=== PATIENT | female | born 1935 | race Caucasian/White ===

== ENCOUNTER 2017-04-08 08:27 | Outpatient (CLI) | payer MEDICARE, OTHER ==
[2017-04-08 11:54] LABS: BASOPHILS % (AUTO) 0.8 %; EOSINOPHILS % (AUTO) 0.5 %; HCT - HEMATOCRIT 29.5 % (37.0-47.0); HGB - HEMOGLOBIN 10.4 g/dL (12.0-16.0); LYMPHOCYTES # (AUTO) 1.4 10^3/uL (1.5-3.5); MEAN CORPUSCULAR HEMOGLOBIN 34.5 pg (27.0-31.0); MEAN CORPUSCULAR HGB CONC 35.2 g/dL (32.0-36.0); MEAN CORPUSCULAR VOLUME 97.9 fL (81.0-99.0); MEAN PLATELET VOLUME 7.6 fL (7.9-10.8); MONOCYTES # (AUTO) 0.6 10^3/uL (0.0-1.0); MONOCYTES % (AUTO) 18.9 %; NEUTROPHILS # (AUTO) 1.3 10^3/uL (1.5-6.6); NEUTROPHILS % (AUTO) 38.8 %; NUCLEATED RED BLOOD CELLS AUTO 0.1 /100WBC; RED BLOOD COUNT 3.01 10^6/uL (4.20-5.40); RED CELL DISTRIBUTION WIDTH 16.3 % (12.0-15.0); UNCORRECTED WHITE BLOOD COUNT 3.4 x10^3/uL; WHITE BLOOD COUNT 3.4 x10^3/uL (4.8-10.8)
[2017-04-08 12:13] LABS: ALBUMIN/GLOBULIN RATIO 0.9 (1.0-2.2); BUN - BLOOD UREA NITROGEN 13 mg/dL (6-20); CALCIUM 8.7 mg/dL (8.5-10.3); CARBON DIOXIDE - CO2 27 mmol/L (21-32); CHLORIDE 101 mmol/L (101-111); CHOL/HDL RATIO 3.4 (<4.4); CHOLESTEROL 124 mg/dL; CREATININE 0.7 mg/dL (0.4-1.0); GFR - MDRD 81 (>89); GLUCOSE 94 mg/dL (70-100); HDL CHOLESTEROL 37 mg/dL; LDL/HDL RATIO 1.8 (<4.4); POTASSIUM 3.9 mmol/L (3.5-5.0); SODIUM 133 mmol/L (135-145); TOTAL PROTEIN 7.6 g/dL (6.7-8.2); TRIGLYCERIDES 105 mg/dL; VLDL CHOLESTEROL 21 mg/dL
[2017-04-08 12:18] LABS: NP AUTO DIFFERENTIAL? NO; NP MAN DIFFERENTIAL? YES
== END 2017-04-08 08:28 | disposition home or self-care (01) ==
LOC: LAB.F 08:27
PROVIDERS: ATTEND Internal Medicine
DX: I10 Essential (primary) hypertension (principal); E78.2 Mixed hyperlipidemia; Z79.899 Other long term (current) drug therapy
CPT/HCPCS: 36415; 80053; 80061; 85025

== ENCOUNTER 2017-04-15 09:39 | Outpatient (CLI) | payer MEDICARE, OTHER ==
[2017-04-15 17:58] LABS: IMMATURE RETIC FRACTION 0.53; RED BLOOD COUNT 2.91 10^6/uL (4.20-5.40)
[2017-04-15 18:40] LABS: FERRITIN 330.8 ng/mL (11.0-306.8)
== END 2017-04-15 09:40 | disposition home or self-care (01) ==
LOC: LAB.F 09:39
PROVIDERS: ATTEND Internal Medicine
DX: D64.9 Anemia, unspecified (principal)
CPT/HCPCS: 36415; 82607; 82728; 83010; 85044; 86880

== ENCOUNTER 2017-11-07 09:47 | Outpatient (CLI) | payer MEDICARE, OTHER ==
--- NOTE | 2017-11-09 09:53 | MRI Report ---
EXAM: MR ABDOMEN WITHOUT CONTRAST (MR CHOLANGIOPANCREATOGRAPHY) EXAM DATE: 11/07/2017 09:55 AM. CLINICAL HISTORY: COMMON BILE DUCT OBSTRUCTION, CALCULI. COMPARISON: Abdominal ultrasound 10/13/2017. TECHNIQUE: Multiplanar breath-hold T1 and T2 sequences obtained through the abdomen on an MR scanner. Dedicated 2D and 3D MRCP sequences obtained through the biliary and pancreatic ducts. No intravenous contrast given. FINDINGS: Lung Bases: Trace left pleural effusion. Moderate esophageal hiatal hernia. Liver: The liver has normal size, morphology and signal. No evidence of mass. The intrahepatic bile d ucts appear normal. CBD: There is a moderately dilated common duct measuring up to 11 mm proximally and approximately 8mm at the head of the pancreas. There is a filling defect at the distal common bile duct measuring appr oximately 5 mm, suspicious for choledocholithiasis. Gallbladder: Partially distended gallbladder with multiple gallstones. No evidence of gallbladder wal l thickening or pericholecystic fluid. Pancreas: Pancreas appears moderately atrophic. There is an irregular cystic-appearing structure in t he head of the pancreas measuring up to 11 x 8 mm (401/15). There is a small cystic structure abuttin g the neck of the pancreas superiorly measuring approximate 7x6 millimeter (41/22, 601/11). Pancreati c duct is in the normal range for size. Spleen: Nonspecific borderline mild splenomegaly. No focal lesion. Kidneys and Adrenals: The kidneys appear normal with no convincing solid mass or hydronephrosis. Ther e is a discrete 7 mm left midpole renal cortical T2 hyperintensity suggestive of cyst. Adrenal glands are unremarkable. Bowel: The small bowel and colon appear normal with no inflammation or obstruction. Retroperitoneum: The retroperitoneal structures appear normal with no mass or lymphadenopathy. Severe T12 compression deformity, appears chronic. Few scattered discrete T2 hyperintensities in the spine, may represent hemangiomata. IMPRESSION: 1. Mildly enlarged common duct with distal filling defect suggesting choledocholithiasis. 2. Cholelithiasis without secondary signs of inflammation to suggest acute cholecystitis. 3. Cystic-appearing pancreatic lesions, as described above. Differential considerations include cysts /pseudocysts, and cystic pancreatic neoplasms both benign and malignant including IPMN. Suggest 6-12 month followup imaging to evaluate stability. 4. Moderate esophageal hiatal hernia. 5. Trace left pleural effusion. 6. Other findings as noted above. [facility] Referring Provider Line: [phone] SITE ID: [id number]
== END 2017-11-07 09:48 | disposition home or self-care (01) ==
LOC: DI 09:47
PROVIDERS: ATTEND Internal Medicine Gastroenterology
DX: K83.8 Other specified diseases of biliary tract (principal); K80.20 Calculus of gallbladder without cholecystitis without obstruction; K86.9 Disease of pancreas, unspecified; K44.9 Diaphragmatic hernia without obstruction or gangrene; J90 Pleural effusion, not elsewhere classified
CPT/HCPCS: 74181

== ENCOUNTER 2017-11-10 10:03 | Outpatient (CLI) | payer MEDICARE, OTHER ==
[2017-11-10 17:39] LABS: INR 0.9 (0.8-1.2); PT - PROTHROMBIN TIME 10.4 secs (9.9-12.6)
== END 2017-11-10 10:04 | disposition home or self-care (01) ==
LOC: LAB.F 10:03
PROVIDERS: ATTEND Internal Medicine Gastroenterology
DX: K86.2 Cyst of pancreas (principal); K80.51 Calculus of bile duct without cholangitis or cholecystitis with obstruction
CPT/HCPCS: 36415; 85610; 86301

== ENCOUNTER 2017-12-15 07:49 | Day surgery (SDC) | payer MEDICARE, OTHER ==
[2017-12-15] MEDS ORDERED: ceFAZolin 2 GM/50 ML 2 GM/50 ML BAG IV ONE (07:56)
[2017-12-15] MEDS ORDERED: LACTATED RINGERS 1,000 ML IV ONE ×2 (08:25→11:12)
[2017-12-15] MEDS ORDERED: MIDAZOLAM 2 MG/2 ML VIAL IVP ONE (08:30)
[2017-12-15] MEDS ORDERED: PROPOFOL 200 MG/20 ML VIAL IVP ONE (08:30)
[2017-12-15] MEDS ORDERED: ACETAMINOPHEN 1,000 MG/100 ML 100 ML IV ONE (08:30)
[2017-12-15] MEDS ORDERED: SUCCINYLCHOLINE 200 MG/10 ML VIAL IVP ONE (08:30)
[2017-12-15] MEDS ORDERED: diphenhydrAMINE INJ 50 MG/ML VIAL IVP ONE (08:30)
[2017-12-15] MEDS ORDERED: NEOSTIGMINE 1 MG/1 ML 10 ML MDV IVP ONE (08:30)
[2017-12-15] MEDS ORDERED: ONDANSETRON 4 MG/2 ML VIAL IVP ONE (08:30)
[2017-12-15] MEDS ORDERED: fentaNYL 100 MCG/2 ML VIAL IVP ONE (08:30)
[2017-12-15] MEDS ORDERED: GLYCOPYRROLATE 1 MG/5 ML VIAL IVP ONE (08:30)
[2017-12-15] MEDS ORDERED: ROCURONIUM 50 MG/5 ML VIAL IVP ONE (08:30)
[2017-12-15] MEDS ORDERED: LIDOCAINE-MPF 2% 5 ML VIAL IM ONE (08:30)
[2017-12-15] MEDS ORDERED: BUPIVACAINE 0.25% PF 30 ML VIAL SUBQ ONE ×2 (10:00)
[2017-12-15] MEDS ORDERED: IOTHALAMATE MEGLUMINE 50 ML VIAL IVP ONE ×2 (10:27)
--- NOTE | 2017-12-15 11:45 | OPERATIVE REPORT ---
Operative Report - General Procedure Date: 12/15/17 Planned Procedure: Laparoscopic cholecystectomy Pre-Op Diagnosis: Symptomatic cholelithiasis and choledocholithiasis Procedure Performed: Laparoscopic cholecystectomy with intra-operative cholangiogram Post Op Diagnosis: Same - Procedure Note Primary Surgeon: Slava Conn MD Anesthesia Provider: Wei Smallwood CRNA Anesthesia Technique: General ET tube, Local (60 mL 1/4% marcaine) IV Fluids (mL): 1,000 Estimated Blood Loss (mL): 33 Complications: None. - Other Other Information/Narrative: OPERATIVE DESCRIPTION/REPORT: After verbal and written informed consent was obtained detailing the risks of infection, bleeding requiring transfusion with its risks, common bile duct injury, and , and after I met with the patient confirming the surgery and the site of the surgery and after initialing the site of the surgery with a surgical marker, the patient was brought to the operative suite and placed supine on the operating table. Great care was taken to avoid pressure points to prevent pressure necrosis or nerve injury. Monitoring devices were applied along with TEDs and pneumatic compressive stockings (to prevent DVT). The patient received preoperative antibiotics for surgical prophylaxis. Wei Smallwood sedated and anesthetized the patient for the entire procedure. The patient was prepped and draped in the usual sterile manner. A "time in" then confirmed that the patient was identified with 3 identifiers (name, date and medical record number), the history and physical was in the chart, the signed consent confirming the procedure was in the chart, the patient was in the correct position, the aforementioned prophylactic measures were in place or given, we had the correct personnel and equipment to complete the procedure and that anesthesia, surgery and nursing were given an opportunity to express any concerns. With the agreement of everyone in the room, we proceeded with the operation. A 2 cm supraumbilical midline incision was made. The fascia was then cleared of subcutaneous tissue using a tonsil clamp. A 1.5 cm incision was then made in the fascia gaining entry into the abdominal cavity without incident. A 12 mm blunt tipped balloon tipped Katherine cannula was placed in the fascial opening and the ballon inflated in order to occlude the fascial opening. The pneumoperitoneum was then established using carbon dioxide insufflation to a steady state pressure of 12 mmHg. The remaining trocars were then placed into the abdomen under direct vision of the 30 degree laparoscope taking care to make the incisions along Langers lines , spreading the subcutaneous tissues with a tonsil clamp, and confirming the entry site by depressing the abdominal wall prior to insertion of the trocar. A total of three other trocars were placed. The first was a 5 mm trocar in the upper midline position. The second was a 5 mm trocar placed in the anterior axillary line approximately 3 cm above the anterior superior iliac spine. The third was a 5 mm trocar placed to bisect the distance between the second and upper midline trocar. All of the trocars were placed without difficulty. The patient was then placed in reverse Trendelenburg position and was rotated slightly to their left. Dense adhesions were nated between the hapatic flexure of the colon and the anterior abdominal wall and these were taken down sharply using scissors. The gallbladder was then grasped through the second and third trocars and retracted cephalad toward the right shoulder. Dense adhesions between the gallbladder and the duodenum were taken down using scissors and Bovie electrocautery. A laparoscopic dissector was then placed through the upper midline cannula fitted with a phy therapist, and the structures within the triangle of Calot were meticulously dissected free. A Fan clamp was then inserted through the medial right subcostal port and the distal gallbladder clamped and the needle inserted just above the origin of the cystic duct. There was return of bile and easy flush of saline. Half strength dye was then injected and a cholangiogram was obtained utilizing fluoroscopy. The first cholangiogram showed the needle was in too far and this was slightly withdrawn in order to get the best picture. After the cholangiogram clearly showed the ductal anatomy, no filling defects and no obstruction to flow, the cholangiocathter and the Fan clamp were removed and the cystic duct was doubly clipped proximally and distally. The duct was divided between the clips. The clips were carefully placed to avoid occluding the juncture with the common bile duct. The cystic artery was found medially and slightly posterior to the cystic duct. It was carefully dissected free from its surrounding tissues. A laparoscopic clip assembler dc field yoke was introduced through the upper midline cannula and used to doubly ligate the cystic artery, proximally and distally. The artery was divided between the clips. After the cystic duct and artery were transected, the gallbladder was dissected from the liver bed using Bovie electrocautery. Prior to complete dissection of the gallbladder from the liver the peritoneal cavity was copiously irrigated with saline and the operative field was examined for persistent blood or bile leaks of which there were none. After complete detachment of the gallbladder from the liver, the video laparoscope was placed through the upper midline 5 mm cannula. The gallbladder was placed in an endopouch that had been inserted in the umbilical port and the pursestring suture pulled tight. All 5 mm port sites were injected with 0.25% marcaine under direct vision at the peritoneal level, fascial level and skin level. The Katherine cannula was removed and the endopouch containing the gallbladder was removed from the abdomen. Following gallbladder removal, the remaining carbon dioxide was expelled from the abdomen. The fascia at the umbilicus was reapproximated using 2 figure-of- eight 0 Vicryl sutures. The skin at each port site was approximated using a subcuticular 4-0 Monocryl. The surgical count of instruments, needles and sponges was reported as correct twice. Mastisol, Steri-Strips and sterile surgical dressings were applied. The patient was then awakened from anesthesia , extubated, and having tolerated the procedure well, was transported to the recovery room. No complications were encountered. A "time out" confirmed the operation performed, the fluids given, the estimated blood loss and anesthesia, surgery and nursing were given an opportunity to express any concerns.
[2017-12-15] MEDS: LABETALOL 20 MG/4 ML SYRINGE IVP ONE ×2 (11:52→11:59)
[2017-12-15] MEDS ORDERED: METOPROLOL 5 MG/5 ML VIAL IVP ONE (11:56)
[2017-12-15 12:44] VITALS: BP 145/89
[2017-12-15] MEDS ORDERED: HYDROcod/ACETAM 5/325 MG TABLET ONE (13:00)
--- NOTE | 2017-12-15 14:06 | XRAY Report ---
INTRAOPERATIVE CHOLANGIOGRAM: 12/15/2017 CLINICAL INDICATION: Cholecystectomy. FINDINGS: Intraoperative cholangiogram demonstrates opacification of the common bile duct and proximal intrahepatic ducts. No intraluminal filling defect is seen to suggest choledocholithiasis. Contrast spills into the duodenum. IMPRESSION: NO EVIDENCE OF CHOLEDOCHOLITHIASIS. FLUOROSCOPY TIME: 13 seconds; 3 spot images obtained. TD: 12/15/2017 14:05
== END 2017-12-15 07:50 | disposition home or self-care (01) ==
LOC: SDS 07:49
PROVIDERS: ATTEND Surgery
PROC: 0FT44ZZ Resection of Gallbladder, Percutaneous Endoscopic Approach (ICD-10-PCS; principal; 2017-12-15 09:00)
DX: K80.10 Calculus of gallbladder with chronic cholecystitis without obstruction (principal); I10 Essential (primary) hypertension; E78.5 Hyperlipidemia, unspecified; E11.9 Type 2 diabetes mellitus without complications
CPT/HCPCS: 47563; 74300; A9270; J0131; J0690; J7120; Q9961

== ENCOUNTER 2018-04-27 08:51 | Outpatient (CLI) | payer MEDICARE, OTHER ==
[2018-04-27 11:11] LABS: ALBUMIN 3.4 g/dL (3.2-5.5); ALBUMIN/GLOBULIN RATIO 0.9 (1.0-2.2); ALKALINE PHOSPHATASE 82 IU/L (42-121); ALT ALANINE AMINOTRANSFERASE 15 IU/L (10-60); AST ASPARTATE AMINOTRANSFERASE 31 IU/L (10-42); BILIRUBIN,TOTAL 1.8 mg/dL (0.2-1.0); BUN - BLOOD UREA NITROGEN 17 mg/dL (6-20); CALCIUM 8.6 mg/dL (8.5-10.3); CARBON DIOXIDE - CO2 26 mmol/L (21-32); CHLORIDE 100 mmol/L (101-111); CHOL/HDL RATIO 2.8 (<4.4); CHOLESTEROL 128 mg/dL; CREATININE 0.7 mg/dL (0.4-1.0); GFR - MDRD 81 (>89); GLUCOSE 98 mg/dL (70-100); HDL CHOLESTEROL 45 mg/dL; LDL CHOLESTEROL,CALCULATED 60 mg/dL; LDL/HDL RATIO 1.3 (<4.4); SODIUM 131 mmol/L (135-145); TOTAL PROTEIN 7.4 g/dL (6.7-8.2); VLDL CHOLESTEROL 23 mg/dL
[2018-04-27 11:15] LABS: BASOPHILS % (AUTO) 0.3 %; EOSINOPHILS % (AUTO) 0.4 %; HGB - HEMOGLOBIN 10.7 g/dL (12.0-16.0); LYMPHOCYTES # (AUTO) 1.7 10^3/uL (1.5-3.5); LYMPHOCYTES % (AUTO) 44.1 %; MEAN CORPUSCULAR HEMOGLOBIN 33.2 pg (27.0-31.0); MEAN CORPUSCULAR HGB CONC 33.7 g/dL (32.0-36.0); MEAN CORPUSCULAR VOLUME 98.6 fL (81.0-99.0); MEAN PLATELET VOLUME 7.5 fL (7.9-10.8); MONOCYTES # (AUTO) 0.6 10^3/uL (0.0-1.0); MONOCYTES % (AUTO) 16.4 %; NEUTROPHILS # (AUTO) 1.5 10^3/uL (1.5-6.6); NEUTROPHILS % (AUTO) 38.8 %; PLT - PLATELET COUNT 162 10^3/uL (130-450); RED BLOOD COUNT 3.23 10^6/uL (4.20-5.40); RED CELL DISTRIBUTION WIDTH 17.5 % (12.0-15.0); WHITE BLOOD COUNT 3.8 x10^3/uL (4.8-10.8)
[2018-04-27 11:17] LABS: HB2 TOTAL 11.7 g/dL; HEMOGLOBIN A1C 0.39 g/dL; HEMOGLOBIN A1C % 5.2 % (4.6-6.2)
[2018-04-27 11:52] LABS: RBC MORPHOLOGY (MULTIPLE) 2+ ANISOCYTOSIS (NORMAL)
== END 2018-04-27 08:52 | disposition home or self-care (01) ==
LOC: LAB.F 08:51
PROVIDERS: ATTEND Internal Medicine
DX: D58.9 Hereditary hemolytic anemia, unspecified (principal); E88.81 Metabolic syndrome and other insulin resistance; I10 Essential (primary) hypertension; E78.5 Hyperlipidemia, unspecified; Z79.899 Other long term (current) drug therapy
CPT/HCPCS: 36415; 80053; 80061; 83036; 83721; 85025

== ENCOUNTER 2018-05-14 10:01 | Outpatient (CLI) | payer MEDICARE, OTHER ==
--- NOTE | 2018-05-14 17:02 | DEXA Report ---
Procedure Date: 05/14/2018 Accession Number: [id number] / [id number] Procedure: DEX - Dexa Spine and/or Hip CPT Code: FULL RESULT: EXAM: Dexa Spine and/or Hip DATE: 05/14/2018 10:57 AM CLINICAL HISTORY: SCREENING MAMMO TECHNIQUE: Dual energy x-ray absorptiometry (DXA) was performed on a [employer] System. Regions measured are the AP Spine, femoral neck, and if needed forearm. COMPARISON: None. In accordance with the International Society for Clinical Densitometry (ISCD) guidelines, data from previous exams may be reanalyzed using current recommendations and techniques. This is done to allow a more accurate basis for comparison with the current study. FINDINGS: The data for the lumbar spine is as follows: BMD (g/cm/cm) T-SCORE Z-SCORE REGION L1 1.009 -1.0 1.1 L2 1.205 0.0 2.1 L3 1.162 -0.3 1.8 L4 1.088 -0.9 1.2 TOTAL 1.118 -0.5 1.6 NOTE: All evaluable vertebrae are used for classification The data for the hip is as follows: BMD (g/cm/cm) T-SCORE Z-SCORE REGION Neck 0.726 -2.2 0.1 TOTAL 0.804 -1.6 0.6 NOTE: The femoral neck or total proximal femur, whichever is lowest, is used for classification. IMPRESSION: THE WHO CLASSIFICATION BASED ON THE INTERNATIONAL REFERENCE STANDARD IS OSTEOPENIA. THE FRACTURE RISK IS INCREASED. RECOMMENDATION: Patients with diagnosis of osteoporosis or osteopenia should have regular bone mineral density assessment. For those eligible for Medicare, routine testing is allowed once every 2 years. Testing frequency can be increased for patients who have rapidly progressing disease or for those who are receiving medical therapy to restore bone mass. COMMENT: World Health Organization (WHO) definitions for osteoporosis and osteopenia: NORMAL BMD: T-score at -1.0 or higher, fracture risk is low OSTEOPENIA BMD: T-score between -1.0 and -2.5, fracture risk is increased. OSTEOPOROSIS BMD: T-score at -2.5 or lower, fracture risk is high. National Osteoporosis Foundation recommends: 1. Obtain adequate dietary calcium (at least 1200 mg per day) and vitamin D (400-800 international units per day). 2. Participate, as appropriate, in regular weightbearing and muscle-strengthening exercise. 3. Avoid tobacco use and reduce alcohol and caffeine intake. 4. For more detailed information see the website at www.NOF.org.
== END 2018-05-14 10:02 | disposition home or self-care (01) ==
LOC: DI 10:01
PROVIDERS: ATTEND Internal Medicine
DX: M85.88 Other specified disorders of bone density and structure, other site (principal)
CPT/HCPCS: 77080

== ENCOUNTER 2018-05-14 10:04 | Outpatient (CLI) | payer MEDICARE, OTHER ==
--- NOTE | 2018-05-17 15:51 | Mammography Report ---
Procedure Date: 05/14/2018 Accession Number: [id number] / [id number] Procedure: CHUY - Screening Mammo Dig Bilat CPT Code: FULL RESULT: EXAM: Screening Mammo Dig Bilat DATE: 05/14/2018 10:30 AM CLINICAL HISTORY: 82-year-old female with 20 years of hormone replacement therapy and a family history of breast cancer in an aunt at age 50 presents for screening. She reports a 20 pound weight loss since her last mammogram. TECHNIQUE: Bilateral CC and MLO views were obtained. COMPARISON: 04/16/2016, 08/18/2013, 07/02/2011, 05/14/2010. FINDINGS: The breasts demonstrate heterogeneously dense fibroglandular parenchyma bilaterally. Typically benign bilateral coarse calcifications are seen. Typically benign bilateral vascular calcifications are seen. There are bilateral intramammary lymph nodes. These are typically benign. No suspicious masses, clustered microcalcifications, or regions of architectural distortion are identified. IMPRESSION: Benign findings RECOMMENDATION: Routine annual screening unless otherwise clinically indicated. BIRADS CATEGORY 2: Benign findings STANDARD QUALIFYING STATEMENTS: 1. This examination was reviewed with the aid of Computer-Aided Detection (CAD). 2. A negative or benign imaging report should not delay biopsy if clinically suspicious findings are present. Consider surgical consultation if warrented. More than 5% of cancers are not identified by imaging. 3. Dense breasts may obscure an underlying neoplasm.
== END 2018-05-14 10:05 | disposition home or self-care (01) ==
LOC: DI 10:04
PROVIDERS: ATTEND Internal Medicine
DX: Z12.31 Encounter for screening mammogram for malignant neoplasm of breast (principal); Z80.3 Family history of malignant neoplasm of breast
CPT/HCPCS: 77067

== ENCOUNTER 2018-05-25 08:00 | Outpatient (CLI) | payer MEDICARE, OTHER | END 2018-05-25 08:01 | disposition home or self-care (01) | LOC: LAB.R 08:00 | PROVIDERS: ATTEND Internal Medicine | DX: M81.0 Age-related osteoporosis without current pathological fracture (principal) | CPT/HCPCS: 82306 ==

== ENCOUNTER 2018-06-04 11:16 | Outpatient (CLI) | payer MEDICARE, OTHER ==
--- NOTE | 2018-06-04 12:33 | Ultrasound Report ---
Procedure Date: 06/04/2018 Accession Number: [id number] / [id number] Procedure: US - Head or Neck Soft Tissue CPT Code: FULL RESULT: EXAM: NECK ULTRASOUND EXAM DATE: 06/04/2018 11:29 AM. CLINICAL HISTORY: Cervical lymphadenopathy. COMPARISON: None. TECHNIQUE: Real-time sonographic imaging was performed by the emergency response officer utilizing color-flow. Multiple screening representative static images were saved for review. FINDINGS: Muñoz scale and limited color Doppler ultrasound of the left neck area of concern were obtained. Multiple hypoechoic oval structures some of which demonstrate internal vascularity by color Doppler are identified. Of note, these do not demonstrate the typical architecture expected of lymph nodes. The largest of these is heterogeneous and appears markedly hypoechoic measuring 1.1 x 0.9 x 0.9 cm and demonstrates vascularity from a presumed hilum as well as from a capsular source; appearance highly suspicious for lymphadenopathy with loss of architecture. IMPRESSION: Suspect pathologic lymph nodes, recommend tissue sampling. [facility]
== END 2018-06-04 11:17 | disposition home or self-care (01) ==
LOC: DI 11:16
PROVIDERS: ATTEND Internal Medicine
DX: R59.0 Localized enlarged lymph nodes (principal)
CPT/HCPCS: 76536

== ENCOUNTER 2018-07-15 12:50 | Outpatient (CLI) | payer MEDICARE, OTHER ==
--- NOTE | 2018-07-15 17:16 | Ultrasound Report ---
Reason: MASS BEHIND ANGLE OF L MANDIBLE Procedure Date: 07/15/2018 Accession Number: [id number] / [id number] Procedure: US - Fine Needle Aspiration CPT Code: FULL RESULT: PROCEDURE: ULTRASOUND GUIDED BIOPSY PREOPERATIVE DIAGNOSIS: Mass in the left neck at the angle of the mandible, possibly malignant. POSTOPERATIVE DIAGNOSIS: Same TECHNIQUE: Following written and oral informed consent including procedure risks and alternatives, the patient was brought to the ultrasound suite and positioned. Using local anesthesia, sterile technique, and direct ultrasound control, FNA needles were advanced to the mass and fine-needle aspiration was performed. The patient tolerated the procedure well and there were no immediate complications. CORN BREEDER: Dr Muse ESTIMATED BLOOD LOSS: Minimal FLUOROSCOPY TIME: None. COMPLICATIONS: None. CONDITION: Good. SPECIMEN: Fine-needle aspiration. IMPLANTS: None. FINDINGS: Real-time ultrasound performed with static images saved to the PACS demonstrating the needle directed into the mass. IMPRESSION: Uncomplicated ultrasound guided fine needle aspiration biopsy as described. Pathology results will be reported separately. [facility]
== END 2018-07-15 12:51 | disposition home or self-care (01) ==
LOC: DI 12:50
PROVIDERS: ATTEND Surgery
DX: R22.1 Localized swelling, mass and lump, neck (principal)
CPT/HCPCS: 10022

== ENCOUNTER 2018-07-26 13:12 | Outpatient (CLI) | payer MEDICARE, OTHER | END 2018-07-26 13:13 | disposition home or self-care (01) | LOC: LAB 13:12 | PROVIDERS: ATTEND Surgery | DX: Z53.9 Procedure and treatment not carried out, unspecified reason (principal) | CPT/HCPCS: 36415 ==

== ENCOUNTER 2019-02-15 10:38 | Emergency (ER) | payer MEDICARE, OTHER ==
[2019-02-15 11:12] LABS: HGB - HEMOGLOBIN 7.6 g/dL (12.0-16.0); LYMPHOCYTES # (AUTO) 1.4 10^3/uL (1.5-3.5); LYMPHOCYTES % (AUTO) 40.7 %; MEAN CORPUSCULAR HEMOGLOBIN 39.2 pg (27.0-31.0); MEAN CORPUSCULAR HGB CONC 33.4 g/dL (32.0-36.0); MEAN CORPUSCULAR VOLUME 117.3 fL (81.0-99.0); MEAN PLATELET VOLUME 7.9 fL (7.9-10.8); MONOCYTES # (AUTO) 0.5 10^3/uL (0.0-1.0); MONOCYTES % (AUTO) 13.5 %; NEUTROPHILS # (AUTO) 1.6 10^3/uL (1.5-6.6); NEUTROPHILS % (AUTO) 44.8 %; PLT - PLATELET COUNT 120 10^3/uL (130-450); RED BLOOD COUNT 1.95 10^6/uL (4.20-5.40); WHITE BLOOD COUNT 3.5 x10^3/uL (4.8-10.8)
[2019-02-15 11:22] LABS: ALBUMIN 3.3 g/dL (3.2-5.5); ALBUMIN/GLOBULIN RATIO 0.8 (1.0-2.2); BILIRUBIN,TOTAL 3.9 mg/dL (0.2-1.0); CALCIUM 8.4 mg/dL (8.5-10.3); CREATININE 0.6 mg/dL (0.4-1.0); TOTAL PROTEIN 7.5 g/dL (6.7-8.2)
[2019-02-15 11:56] LABS: PLATELET ESTIMATE, MANUAL DECREASED (<130,000) (NORMAL); PLATELET MORPHOLOGY NORMAL APPEARANCE (NORMAL)
--- NOTE | 2019-02-15 12:20 | XRAY Report ---
Reason: dyspnea Procedure Date: 02/15/2019 Accession Number: [id number] / [id number] Procedure: XR - Chest 2 View X-Ray CPT Code: 90188 FULL RESULT: EXAM: CHEST RADIOGRAPHY EXAM DATE: 02/15/2019 11:34 AM. CLINICAL HISTORY: Dyspnea. Shortness of breath with exertion. COMPARISON: ABDOMEN 2 VIEW 10/04/2014 7:00 PM. TECHNIQUE: 2 views. FINDINGS: Lungs/Pleura: No focal opacities evident. No pleural effusion. No pneumothorax. Normal volumes. Mediastinum: Prominent cardiac silhouette. Tortuous thoracic aorta. Left basilar atelectasis. Other: Large hiatal hernia. 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 Bones appear osteopenic. Extensive atherosclerotic allegations of the thoracoabdominal aorta. IMPRESSION: 1. Large hiatal hernia with adjacent left lower lobe atelectasis. [facility]
[2019-02-15 13:06] LABS: GLUCOSE, URINE (UA) NEGATIVE (NEGATIVE); KETONES,URINE (UA) NEGATIVE (NEGATIVE); LEUKOCYTE ESTERASE, URINE NEGATIVE (NEGATIVE); NITRITE,URINE NEGATIVE (NEGATIVE); OCCULT BLOOD,URINE TRACE-INTA (NEGATIVE); PROTEIN,URINE TRACE mg/dL (NEGATIVE); UROBILINOGEN,URINE 4 E.U./dL (NORMAL)
[2019-02-15 13:10] LABS: BILIRUBIN,URINE NEGATIVE (NEGATIVE); CLARITY,URINE CLEAR (CLEAR); ICTOTEST,URINE NEGATIVE
--- NOTE | 2019-02-15 13:10 | ED Physician Documentation ---
PD HPI DYSPNEA - Stated complaint Stated Complaint: SOA - Chief complaint Chief Complaint: General - History obtained from History obtained from: Patient - History of Present Illness Timing - onset: How many months ago (2) Timing - duration: Months (2) Timing - details: Still present Worsened by: Exertion Recently seen: Clinic (Sent here from outpatient clinic where she was seen this morning.) - Additional information Additional information: The patient is an 83-year-old female with a history of autoimmune hemolytic anemia, who presents with shortness of breath that has been ongoing for the past 2 months. It is worse with even slight activity, such as walking from one room to another. She denies fever, cough, or chest pain. She was treated with steroid medication 2 years ago for autoimmune hemolytic anemia, and achieved remission. She has no history of cigarette smoking, congestive heart failure, or pulmonary disease. Review of Systems Constitutional: denies: Fever Ears: denies: Tinnitus/ringing Nose: denies: Congestion Throat: denies: Sore throat Cardiac: denies: Chest pain / pressure Respiratory: reports: Dyspnea (on exertion). denies: Cough GI: denies: Abdominal Pain, Nausea, Vomiting : denies: Dysuria Skin: denies: Rash Musculoskeletal: denies: Back pain, Extremity swelling Neurologic: reports: Generalized weakness. 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 HEENT: Cataracts, Tonsil/Adenoidectomy - Present Medications Home Medications: Ambulatory Orders Medication Instructions Recorded Confirmed Calcium Carbonate/Vitamin D3 1 cap PO BID 06/01/17 02/15/19 [Calcium 600-Vit D3 500 Softgel] Iron Polysacch/Iron Heme Polyp 28 mg PO ONCE 06/01/17 02/15/19 [Duofer 28 mg Tablet] Metoprolol Tartrate 25 mg PO BID 06/01/17 02/15/19 Quinapril HCl 10 mg PO BID 06/01/17 02/15/19 Atorvastatin Calcium 40 mg PO DAILY 11/01/18 02/15/19 Aspirin Chewable [St Anup 81 mg PO DAILY 02/15/19 02/15/19 Aspirin] predniSONE [Prednisone] 60 mg PO DAILY #30 tablet 02/15/19 - Allergies Allergies/Adverse Reactions: Allergies Allergy/AdvReac Type Severity Reaction Status Date / Time No Known Drug Allergies Allergy Verified 02/15/19 10:56 - Social History Does the pt smoke?: No Smoking Status: Never smoker Does the pt drink ETOH?: Yes Does the pt have substance abuse?: No PD ED PE NORMAL - Vitals Vital signs reviewed: Yes (borderline systolic hypertension initially) - General General: Alert and oriented X 3, Well developed/nourished - HEENT HEENT: Atraumatic, EOMI, Pharynx benign - Neck Neck: No adenopathy, No JVD - Cardiac Cardiac: RRR - Respiratory Respiratory: No respiratory distress, Clear bilaterally - Abdomen Abdomen: Soft, Non tender - Back Back: No CVA TTP - Derm Derm: Other (slightly jaundiced appearing.) - Extremities Extremities: No edema, No calf tenderness / cord - Neuro Neuro: Alert and oriented X 3, No motor deficit, Normal speech Results - Vitals Vitals: Vital Signs - 24 hr 02/15/19 02/15/19 02/15/19 10:46 13:13 14:58 Temperature 36.2 C L Heart Rate 97 74 85 Respiratory 26 H 17 20 Rate Blood Pressure 138/58 H 134/64 H 137/68 H O2 Saturation 95 97 100 Oxygen O2 Source Room air - EKG (time done) 10:45 Rate: Rate (enter#) (97) Rhythm: NSR [place]: Normal Intervals: Normal [place] QRS: Normal Ischemia: Normal ST segments Computer interpretation: Agree with computer - Labs Labs: Laboratory Tests 02/15/19 02/15/19 02/15/19 11:00 11:00 12:55 WBC 3.5 L RBC 1.95 L Hgb 7.6 L Hct 22.8 L MCV 117.3 H MCH 39.2 H MCHC 33.4 RDW 18.0 H Plt Count 120 L MPV 7.9 Reticulocyte % (Auto) Neut # (Auto) 1.6 Lymph # (Auto) 1.4 L [place] # (Auto) 0.5 Eos # (Auto) 0.0 Baso # (Auto) 0.0 Absolute Nucleated RBC 0.01 Nucleated RBC % 0.3 Manual Slide Review Indicated Platelet Estimate DECREASED (<130,000) Platelet Morphology NORMAL APPEARANCE RBC Morph Micro Appear 1+ MACROCYTOSIS Absolute Retic Sodium 128 L Potassium 3.8 Chloride 97 L Carbon Dioxide 22 Anion Gap 9.0 BUN 13 Creatinine 0.6 Estimated GFR (MDRD) 96 Glucose 157 H Calcium 8.4 L Total Bilirubin 3.9 H AST 70 H ALT 19 Alkaline Phosphatase 72 Lactate Dehydrogenase Total Protein 7.5 Albumin 3.3 Globulin 4.2 Albumin/Globulin Ratio 0.8 L Lipase 44 Urine Color DARK YELLOW Urine Clarity CLEAR Urine pH 6.0 Ur Specific [place] 1.020 Urine Protein TRACE Urine Glucose (UA) NEGATIVE Urine Ketones NEGATIVE Urine Occult Blood TRACE-INTA Urine Nitrite NEGATIVE Urine Bilirubin NEGATIVE Urine Urobilinogen 4 H Ur Leukocyte Esterase NEGATIVE Ur Microscopic Review NOT INDICATED Urine Culture Comments NOT INDICATED 02/15/19 02/15/19 14:43 14:43 WBC RBC 1.68 L Hgb Hct MCV MCH MCHC RDW Plt Count MPV Reticulocyte % (Auto) 5.14 H Neut # (Auto) Lymph # (Auto) [place] # (Auto) Eos # (Auto) Baso # (Auto) Absolute Nucleated RBC Nucleated RBC % Manual Slide Review Platelet Estimate Platelet Morphology RBC Morph Micro Appear Absolute Retic 0.087 Sodium Potassium Chloride Carbon Dioxide Anion Gap BUN Creatinine Estimated GFR (MDRD) Glucose Calcium Total Bilirubin AST ALT Alkaline Phosphatase Lactate Dehydrogenase 418 H Total Protein Albumin Globulin Albumin/Globulin Ratio Lipase Urine Color Urine Clarity Urine pH Ur Specific [place] Urine Protein Urine Glucose (UA) Urine Ketones Urine Occult Blood Urine Nitrite Urine Bilirubin Urine Urobilinogen Ur Leukocyte Esterase Ur Microscopic Review Urine Culture Comments - Rads (name of study) 2-view CXR Radiology: Prelim report reviewed, EMP read contemporaneously, See rad report (Large hiatal hernia with adjacent left lower lobe atelectasis.) PD MEDICAL DECISION MAKING - ED course Complexity details: reviewed old records, reviewed results, re-evaluated patient, considered differential, d/w patient, d/w family, d/w business 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 Reticulocyte count is 0.087, and her LDH is elevated at 418. Chest x-ray reveals a large hiatal hernia, but no evidence of pneumonia, pneumothorax, and I doubt pulmonary embolus. I discussed her condition with Dr. Sherman who is on-call for Dr. Arnett. She advises instituting treatment with prednisone, and she will arrange for outpat ient follow-up with Dr. Arnett. Blood transfusion is not likely to be effective due to her underlying hemolysis. Treatment in the emergency department included administration of prednisone 60 mg orally. She is being discharged with prescription for prednisone. I discussed with her and her son the diagnosis, outpatient treatment and urgent follow-up, as well as potentially worrisome signs or symptoms that should prompt reevaluation in the emergency department. Departure - Departure Disposition: Home, Self Care Clinical Impression: Hyperbilirubinemia, Hyponatremia, Hiatal hernia Hemolytic anemia Qualifiers: Hemolytic anemia type: acquired, autoimmune, other Qualified Code(s): D59.1 - Other autoimmune hemolytic anemias Condition: Stable Instructions: ED Anemia Type Not Specified Follow-Up: Rickey Arnett MD [Physician No Access] - Josephine Martell ARNP [Primary Care Provider] - Prescriptions: predniSONE [Prednisone] 60 mg PO DAILY #30 tablet Comments: Take prednisone daily as prescribed. Follow-up with Dr. Arnett. His office will call to schedule a follow-up appointment. Return to the emergency department if you develop increasing difficulty breathing, or otherwise worsening symptoms. Discharge Date/Time: 02/15/19 15:06
[2019-02-15] MEDS ORDERED: predniSONE 20 MG TABLET PO STA (14:30)
[2019-02-15 14:56] LABS: ABSOLUTE RETICS # AUTO 0.087 10^6/uL (0.020-0.110); MEAN RETIC VALUE 140.3; RED BLOOD COUNT 1.68 10^6/uL (4.20-5.40)
[2019-02-15 14:59] VITALS: BP 137/68
== END 2019-02-15 15:06 | disposition home or self-care (01) ==
LOC: ED 10:38
DX: E80.6 Other disorders of bilirubin metabolism (principal); E87.1 Hypo-osmolality and hyponatremia; K44.9 Diaphragmatic hernia without obstruction or gangrene; D59.1 Other autoimmune hemolytic anemias; I10 Essential (primary) hypertension; E78.00 Pure hypercholesterolemia, unspecified
CPT/HCPCS: 36415; 71046; 80053; 81003; 83010; 83615; 83690; 85025; 85044; 93005; 99283; 99284; J7512; 81001; 87086

== ENCOUNTER 2019-04-22 17:35 | Outpatient (CLI) | payer MEDICARE, OTHER | END 2019-04-22 17:36 | disposition short-term general hospital (02) | LOC: EMS 17:35 | PROVIDERS: ATTEND Surgery | DX: R53.1 Weakness (principal); R47.9 Unspecified speech disturbances; R29.810 Facial weakness | CPT/HCPCS: A0425; A0427 ==

== ENCOUNTER 2020-01-09 11:56 | Outpatient (CLI) | payer MEDICARE, OTHER ==
[2020-01-09 12:26] LABS: CHOL/HDL RATIO 3.2 (<4.4); CHOLESTEROL 142 mg/dL; HDL CHOLESTEROL 45 mg/dL; LDL CHOLESTEROL,CALCULATED 73 mg/dL; LDL/HDL RATIO 1.6 (<4.4); VLDL CHOLESTEROL 24 mg/dL
== END 2020-01-09 11:57 | disposition home or self-care (01) ==
LOC: LAB 11:56
PROVIDERS: ATTEND Registered Nurse
DX: E78.5 Hyperlipidemia, unspecified (principal); I10 Essential (primary) hypertension
CPT/HCPCS: 36415; 80061; 83721; 84443

== ENCOUNTER 2020-01-27 08:57 | Outpatient (CLI) | payer MEDICARE, OTHER ==
--- NOTE | 2020-01-27 09:40 | XRAY Report ---
Reason: THORACIC BACK PAIN Procedure Date: 01/27/2020 Accession Number: [id number] / [id number] Procedure: WCP - Thoracic Spine 2 View CPT Code: Final Report FULL RESULT: EXAM: THORACIC SPINE RADIOGRAPHY EXAM DATE: 01/27/2020 09:20 AM. CLINICAL HISTORY: THORACIC BACK PAIN. COMPARISON: CHEST 2 VIEW 02/15/2019 11:12 AM. TECHNIQUE: 2 views. FINDINGS: Alignment: Normal. No spondylolisthesis or scoliosis. Bones: Severe compression deformity of the L1 vertebral body redemonstrated and similar to the prior examination. Disks: Normal. Disk heights are maintained. Soft Tissues: Atelectatic changes in the left lung base. Large hiatal hernia redemonstrated. The visualized lungs and cardiomediastinal silhouette are normal. IMPRESSION: 1. Severe compression deformity of the L1 vertebral body redemonstrated and similar to the prior examination. 2. No new fracture identified. RADIA
--- NOTE | 2020-01-27 10:00 | XRAY Report ---
Reason: LOW BACK PAIN Procedure Date: 01/27/2020 Accession Number: [id number] / [id number] Procedure: WCP - Lumbar Spine 2 View CPT Code: Final Report FULL RESULT: EXAM: LUMBOSACRAL SPINE RADIOGRAPHY EXAM DATE: 01/27/2020 09:20 AM. CLINICAL HISTORY: Low back pain. COMPARISONS: Chest 2 view 02/15/2019 11:12 AM. Thoracic spine radiographs from today. TECHNIQUE: 2 views. FINDINGS: A severe compression deformity is seen centered over T12 with significant kyphosis centered over T12 noted. These findings are seen on the comparison lateral chest radiograph. Anterior wedging centered on the superior endplate at L1 appears stable. There is mild loss of vertebral body height along the superior plate at L5 and mild to moderate loss of vertebral body height along the superior endplate at L4. Grade 1 retrolisthesis of L2 relative to L3 is noted. Grade 1 retrolisthesis of L3 relative to L4 is noted. Loss of disk space height is seen at L2-L3 with osteophyte formation present. Lucency is seen throughout the visualized vertebral bodies. This could reflect osteopenia or possibly osteoporosis. There is leftward curvature centered over L2. Surgical clips are seen overlying the right abdomen and upper pelvis. The hemidiaphragms are flat suggesting hyperinflation as seen on the comparison radiographs. A moderate to large hiatal hernia is seen and was present on the comparison chest radiographs. IMPRESSION: 1. Again seen is a severe compression deformity at T12 with kyphosis centered over this level. 2. Again seen is mild anterior wedging at L1. 3. Age-indeterminate compression deformities are present at L4 and to a lesser extent L5. RADIA
== END 2020-01-27 23:59 | disposition home or self-care (01) ==
LOC: DI.WCP 08:57
PROVIDERS: ATTEND Family Medicine
DX: M43.8X6 Other specified deforming dorsopathies, lumbar region (principal); M43.8X4 Other specified deforming dorsopathies, thoracic region; M43.16 Spondylolisthesis, lumbar region; M40.204 Unspecified kyphosis, thoracic region; M51.36 Other intervertebral disc degeneration, lumbar region
CPT/HCPCS: 72070; 72100

== ENCOUNTER 2020-01-28 14:57 | Outpatient (CLI) | payer MEDICARE, OTHER | END 2020-01-28 14:58 | disposition critical access hospital (66) | LOC: EMS 14:57 | PROVIDERS: ATTEND Surgery | DX: R47.9 Unspecified speech disturbances (principal) | CPT/HCPCS: A0425; A0429 ==

== ENCOUNTER 2020-01-28 15:27 | Inpatient (IN) | payer MEDICARE, OTHER ==
--- NOTE | 2020-01-28 15:44 | ED Physician Documentation ---
PD HPI FOCAL NEURO - Stated complaint Stated Complaint: TIA - History obtained from History obtained from: Patient, EMS - History of Present Illness Timing - onset: How many hours ago (1) Timing - duration: Minutes (15) Timing - details: Abrupt onset, Now resolved (The patient states she was sitting watching TV. Her son was in the room with her and apparently thought she looked in distress. He asked how she was doing and she was unable to answer his questions. She knew what she wanted to say but felt she could not get the words out. She will understood what he was saying. This lasted about 15 minutes and then she was able to talk. The son and called EMS during this time. On their arrival shows a conversant. She seemed normal on route here. She had some mild dyspnea.) Severity of deficit: Moderate Weakness: No: Face, Arm, Leg Numbness: No: Face, Arm, Leg Contributing factors: negative: Anticoagulated, Atrial fibrillation Baseline status: positive: A&OX3, ambulatory, indep Similar symptoms before: Diagnosis (TIA/CVA March 2019 in [facility]) Recently seen: Clinic (few days ago for new onset low back pain without apparent trauma. Dx compression fracture. Pt has not been much out of bed due to this the past several days.) Review of Systems Constitutional: denies: Fever, Chills, Myalgias Nose: denies: Rhinorrhea / runny nose, Congestion Throat: denies: Sore throat Cardiac: reports: Pedal edema (the past week or two, both legs.). denies: Chest pain / pressure, Palpitations, Calf pain Respiratory: reports: Dyspnea. denies: Cough GI: reports: Constipation. denies: Abdominal Pain, Nausea, Vomiting, Diarrhea : denies: Dysuria Musculoskeletal: reports: Back pain (lumbar area) Neurologic: reports: Generalized weakness, Difficulty speaking (briefly today). 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 HEENT: Cataracts, Tonsil/Adenoidectomy - Present Medications Home Medications: Ambulatory Orders Medication Instructions Recorded Confirmed Calcium Carbonate/Vitamin D3 1 cap PO BID 06/01/17 01/09/20 [Calcium 600-Vit D3 500 Softgel] Iron Polysacch/Iron Heme Polyp 28 mg PO ONCE 06/01/17 01/09/20 [Duofer 28 mg Tablet] Metoprolol Tartrate 25 mg PO BID 06/01/17 01/09/20 Quinapril HCl 20 mg PO BID 06/01/17 01/09/20 Atorvastatin Calcium 40 mg PO DAILY 11/01/18 01/09/20 Aspirin Chewable [St Anup 81 mg PO DAILY 02/15/19 01/09/20 Aspirin] predniSONE [Prednisone] 50 mg PO DAILY 12/06/19 01/09/20 Hydrochlorothiazide 1 tab PO DAILY 01/02/20 01/09/20 Potassium Chloride 10 meq PO DAILY 01/09/20 01/09/20 - Allergies Allergies/Adverse Reactions: Allergies Allergy/AdvReac Type Severity Reaction Status Date / Time No Known Drug Allergies Allergy Verified 01/28/20 15:50 - Social History Does the pt smoke?: No Smoking Status: Never smoker Does the pt drink ETOH?: Yes Does the pt have substance abuse?: No PD ED PE NORMAL - Vitals Vital signs reviewed: Yes - General General: Alert and oriented X 3, Well developed/nourished - HEENT HEENT: Atraumatic, Ears normal, Moist mucous membranes, Pharynx benign - Neck Neck: Supple, no meningeal sign, No adenopathy - Cardiac Cardiac: RRR, Other (1/6 systolic murmur right sternal border radiating to back. ) - Respiratory Respiratory: No: Clear bilaterally (faint crackles in bases. No wheezing. No coarse sounds. ) - Abdomen Abdomen: Soft, Non tender - Back Back: Other (guarded ROM of the low back due to position pain. ) - Derm Derm: Warm and dry. No: Normal color (slightly dusky color, with nailbeds appearing dusky. Cold hands though.) - Extremities Extremities: Normal ROM s pain, No calf tenderness / cord, Other - Neuro Neuro: Alert and oriented X 3, No motor deficit, Normal speech NIHSS - Level of Consciousness Level of consciousness: (0) Alert, Keenly responsive LOC Questions: (0) Answers both Q's correct LOC Commands: (0) Performs both correctly - Gaze Best Gaze: (0) Normal - Visual Visual: (1) Partial hemianopia (left upper field) - Facial Palsy Facial Palsy: (0) Normal, symmetrical movement - Motor Arms (both separate) Motor Arm (right): (0) No drift Motor Arm (left): (0) No drift - Motor Legs (both separate) Motor Leg (right): (0) No drift Motor Leg (left): (0) No drift - Limb Ataxia Limb Ataxia: (0) Absent - Sensory Sensory: (0) Normal - Best Language Best Language: (0) No aphasia - Dysarthria Dysarthria: (0) Normal - Extinction and Inattention (formally neg Extinction and inattention: (0) No abnormality - Total Score/Results Total Score/Result: 1 Results - Vitals Vitals: Vital Signs - 24 hr 01/28/20 01/28/20 15:51 17:56 Heart Rate 87 77 Respiratory 15 16 Rate Blood Pressure 150/84 H 137/77 H O2 Saturation 92 90 L Oxygen O2 Source Venturi mask Oxygen Flow Rate 4 - EKG (time done) 16:55 Rate: Rate (enter#) (77) Rhythm: NSR [place]: Normal Intervals: Normal [place] QRS: Normal Ischemia: Normal ST segments. No: ST elevation c/w ischemia, ST depression - Labs Labs: Laboratory Tests 01/28/20 01/28/20 01/28/20 16:30 16:30 16:30 WBC 5.6 RBC 4.21 Hgb 15.0 Hct 45.1 MCV 107.1 H MCH 35.6 H MCHC 33.3 RDW 15.9 H Plt Count 140 MPV 9.0 Neut # (Auto) 4.7 Lymph # (Auto) 0.3 L [place] # (Auto) 0.5 Eos # (Auto) 0.0 Baso # (Auto) 0.0 Absolute Nucleated RBC 0.00 Nucleated RBC % 0.0 PT 13.9 H INR 1.2 APTT 28.8 D-Dimer Bld Gas Analysis Time Sample Site ABG pH ABG pCO2 ABG pO2 ABG HCO3 ABG Total CO2 ABG O2 Saturation ABG Base Excess Lang Test O2 Delivery Device O2 Liters/Min Sodium 132 L Potassium 3.5 Chloride 99 L Carbon Dioxide 21 Anion Gap 12.0 BUN 26 H Creatinine 1.2 H Estimated GFR (MDRD) 43 L Glucose 149 H Calcium 8.6 Magnesium 2.1 Total Bilirubin 2.3 H AST 31 ALT 19 Alkaline Phosphatase 121 B-Natriuretic Peptide Total Protein 7.0 Albumin 4.0 Globulin 3.0 Albumin/Globulin Ratio 1.3 Lipase 25 01/28/20 01/28/20 01/28/20 16:30 16:30 17:10 WBC RBC Hgb Hct MCV MCH MCHC RDW Plt Count MPV Neut # (Auto) Lymph # (Auto) [place] # (Auto) Eos # (Auto) Baso # (Auto) Absolute Nucleated RBC Nucleated RBC % PT INR APTT D-Dimer > 1050.0 H Bld Gas Analysis Time 1717 Sample Site LEFT RADIAL ABG pH 7.41 ABG pCO2 34 ABG pO2 53 L* ABG HCO3 21.4 L ABG Total CO2 22.0 ABG O2 Saturation 88 L ABG Base Excess -3.0 L Lang Test POSITIVE O2 Delivery Device NASAL CANNULA O2 Liters/Min 6.00 Sodium Potassium Chloride Carbon Dioxide Anion Gap BUN Creatinine Estimated GFR (MDRD) Glucose Calcium Magnesium Total Bilirubin AST ALT Alkaline Phosphatase B-Natriuretic Peptide 1134 H Total Protein Albumin Globulin Albumin/Globulin Ratio Lipase - Rads (name of study) head CT Radiology: Prelim report reviewed (small infarct old possible at basal ganglia. chronic microvascular changes. no acute bleed.), See rad report lumbar CT Radiology: Prelim report reviewed (Again noted T12 severe compressive deformity. Endplate compressions L4 and L5, with L5 appearing subacute.), See rad report chest CT Radiology: Prelim report reviewed (interstitial scarring likely chronic with new appearing groundglass opacities c/w pneumonia. ), See rad report PD MEDICAL DECISION MAKING - ED course Complexity details: reviewed results (Of note on her test is an elevated BNP. She does have a mild leukopenia. Her blood gas is not correlating with her oximetry. Oximeter readings despite a good Plath waveform are showing 70s to 80s oximetry. At that same time her blood glass showed 88%. So there was not a good correlation with the oximeter.), re-evaluated patient (Interesting she remains hypoxic. Her oximetry is not picking up well but blood gas does show an 88% saturations on the nasal cannula at 5 L. There was mention of her being hypoxic in the March admission at [facility] and it was felt to be possibly CHF and improved with some diuresis over a day. She was discharged without oxygen supplement need. She was discharged on Plavix and aspirin but st ates the Plavix is only for a month or 2. She is currently on just aspirin), considered differential (Expressive aphasia without focal weakness that has resolved. She states similar symptoms to a TIA versus CVA last March when seen and admitted in [facility]. We will get records from them about this. She also has had back pain for 4 to 5 days without fall or impact type injury. However was seen in the office with x-rays showing a likely new compression fracture lower lumbar. Old T12 fracture noted. She was getting hydrocodone pain medicine but had the last dose last evening. Tylenol today. She denies any cough or cold symptoms but is noted to be hypoxic on route without any work of breathing. She denies chest pain per se.), d/w patient ED course: Patient presented with TIA symptoms of expressive aphasia lasting 15 minutes. She had not been on Plavix just aspirin. 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 The patient also had a recent lower lumbar compression fracture with back pain without apparent significant injury and is on pain medicine. Last dose last evening. Also noted to be hypoxic here and a CT chest showing some pneumonia appearance. Consider possibilities of CHF as well. She had not had cough or fever but the CT does have a coated appearance. Given the recent inactivity with the lumbar fracture, consider atelectasis and regular bacterial pneumonia as well Departure - Departure Disposition: 66 [facility] DC/Xfer Clinical Impression: TIA (transient ischemic attack), Expressive aphasia, Hypoxia Lumbar compression fracture Qualifiers: Encounter type: initial encounter Lumbar vertebra fracture level: L5 Qualified Code(s): S32.050A - Wedge compression fracture of fifth lumbar vertebra, initial encounter for closed fracture Pneumonia Qualifiers: Pneumonia type: due to unspecified organism Laterality: unspecified laterality Lung location: lower lobe of lung Qualified Code(s): J18.9 - Pneumonia, unspecified organism CHF (congestive heart failure) Qualifiers: Heart failure type: unspecified Heart failure chronicity: acute on chronic Qual ified Code(s): I50.9 - Heart failure, unspecified Condition: Stable Record reviewed to determine appropriate education?: Yes
[2020-01-28] MEDS ORDERED: ONDANSETRON 4 MG/2 ML VIAL IVP STA (15:50)
[2020-01-28] MEDS ORDERED: MORPHINE 2 MG/ML CARPUJECT IVP STA (15:50)
[2020-01-28 16:37] LABS: BASOPHILS % (AUTO) 0.5 %; EOSINOPHILS % (AUTO) 0.2 %; LYMPHOCYTES # (AUTO) 0.3 10^3/uL (1.5-3.5); MEAN CORPUSCULAR HEMOGLOBIN 35.6 pg (27.0-31.0); MEAN CORPUSCULAR HGB CONC 33.3 g/dL (32.0-36.0); MEAN CORPUSCULAR VOLUME 107.1 fL (81.0-99.0); MONOCYTES # (AUTO) 0.5 10^3/uL (0.0-1.0); MONOCYTES % (AUTO) 8.7 %; NEUTROPHILS # (AUTO) 4.7 10^3/uL (1.5-6.6); NEUTROPHILS % (AUTO) 83.7 %; PLT - PLATELET COUNT 140 10^3/uL (130-450); RED BLOOD COUNT 4.21 10^6/uL (4.20-5.40); RED CELL DISTRIBUTION WIDTH 15.9 % (12.0-15.0); WHITE BLOOD COUNT 5.6 x10^3/uL (4.8-10.8)
[2020-01-28 16:43] LABS: INR 1.2 (0.8-1.2); PT - PROTHROMBIN TIME 13.9 secs (9.9-12.6)
[2020-01-28 16:49] LABS: ALBUMIN/GLOBULIN RATIO 1.3 (1.0-2.2); BILIRUBIN,TOTAL 2.3 mg/dL (0.2-1.0); CALCIUM 8.6 mg/dL (8.5-10.3); CREATININE 1.2 mg/dL (0.4-1.0); MAGNESIUM 2.1 mg/dL (1.7-2.8)
[2020-01-28 16:50] LABS: PARTIAL THROMBOPLASTIN TIME 28.8 secs (24.9-33.3)
--- NOTE | 2020-01-28 17:06 | CT Report ---
Reason: recent low back pain Procedure Date: 01/28/2020 Accession Number: [id number] / [id number] Procedure: CT - LUMBAR SPINE WO CPT Code: Final Report FULL RESULT: EXAM: CT LUMBAR SPINE WITHOUT CONTRAST EXAM DATE: 01/28/2020 04:28 PM. CLINICAL HISTORY: Recent low back pain. COMPARISONS: LUMBAR SPINE 2 VIEW 01/27/2020 8:53 AM. TECHNIQUE: Thin-section axial images were acquired of the lumbar spine from T12 to S1 without contrast. Post-processing: Coronal and sagittal reformats. Other: None. In accordance with CT protocol optimization, one or more of the following dose reduction techniques were utilized for this exam: automated exposure control, adjustment of mA and/or KV based on patient size, or use of iterative reconstructive technique. FINDINGS: Alignment: Thoracolumbar kyphosis centered at L1. Lumbar levoscoliosis. Retrolisthesis of L2 on L3. Bones: Five [id number] lumbar vertebral bodies are present. Severe T12 compression deformity with nearly complete loss of vertebral body height and mild retropulsion of fracture fragments causing central canal narrowing. Mild inferior endplate L1 compression deformity. Mild central superior L4 compression deformity which appears chronic as well as a mild superior endplate L5 compression deformity which appears subacute and more likely involving the inferior endplate with approximately 10-20% loss of vertebral body height. Degenerative spurring. Disk Levels/Facets: T12-L1: Circumferential disk protrusion. Marked disk space narrowing. Facet arthropathy. L1-L2: Circumferential disk protrusion. Facet arthropathy. L2-L3: Disk space narrowing. Osteophyte formation. Circumferential disk protrusion. Facet arthropathy. Mild to moderate right and left neural foraminal narrowing. L3-L4: Disk space narrowing. Circumferential disk protrusion. Facet arthropathy. Mild central canal narrowing. Mild bilateral neural foraminal narrowing. L4-L5: Circumferential disk protrusion. Osteophyte formation. Facet arthropathy. Moderate left and mild to moderate right neural foraminal narrowing. L5-S1: Circumferential disk protrusion. Facet arthropathy. Musculature: Normal. No fatty atrophy. Other: Vascular calcifications. Large hiatal hernia. Bibasilar scar/atelectasis versus fibrosis. Small left pleural effusion. Heart is enlarged. Coronary artery calcified plaque. Aortic atherosclerosis. Status post cholecystectomy. Diverticula are seen in the visualized colon. No diverticulitis. IMPRESSION: 1. Severe T12 compression deformity with associated thoracolumbar kyphosis and mild retropulsion of fracture fragments causing mild central canal narrowing. 2. Mild inferior endplate L1, mild central superior endplate and inferior endplate L4 and L5 compression deformities of which the L5 compression deformity appears subacute. 3. Multilevel intervertebral disk degenerative changes of the lumbar spine greatest at L2-L3. 4. Lumber facet arthropathy. RADIA
--- NOTE | 2020-01-28 17:13 | CT Report ---
Reason: aphasia briefly Procedure Date: 01/28/2020 Accession Number: [id number] / [id number] Procedure: CT - HEAD WO CPT Code: Final Report FULL RESULT: EXAM: CT HEAD EXAM DATE: 01/28/2020 04:33 PM. CLINICAL HISTORY: Aphasia briefly. COMPARISON: None. TECHNIQUE: Multiaxial CT images were obtained from the foramen magnum to the vertex. Reformats: Sagittal and coronal. IV contrast: None. In accordance with CT protocol optimization, one or more of the following dose reduction techniques were utilized for this exam: automated exposure control, adjustment of mA and/or KV based on patient size, or use of iterative reconstructive technique. FINDINGS: Parenchyma: No intraparenchymal hemorrhage. No evidence of mass, midline shift, or CT findings of infarction. Muñoz-white differentiation is distinct. Moderate diffuse parenchymal volume loss. Periventricular white matter hypoattenuation, statistically most likely secondary to chronic microangiopathic white matter changes. Prominent perivascular space versus small old lacunar infarct in the right basal ganglia. Extraaxial Spaces: No subdural or epidural collections identified. Ventricles: Normal in size and position. Sinuses and Orbits: Imaged paranasal sinuses, orbits, and mastoids show no significant abnormality. Bones: No evidence of fracture or calvarial defect. Other: None. IMPRESSION: 1. No acute intracranial findings. 2. Moderate diffuse parenchymal volume loss. 3. Chronic microangiopathic white matter changes. RADIA
[2020-01-28 17:19] LABS: ABG HCO3 21.4 mmol/L (22.0-26.0); ABG OXYGEN SATURATION 88 % (94-98); ABG PCO2 34 mmHg (34-45); ABG PH 7.41 (7.35-7.45)
[2020-01-28 17:20] LABS: ALLEN TEST POSITIVE
[2020-01-28 17:21] LABS: ABG PO2 53 mmHg (80-100)
--- NOTE | 2020-01-28 17:25 | CT Report ---
Reason: dyspnea Procedure Date: 01/28/2020 Accession Number: [id number] / [id number] Procedure: CT - CHEST WO CPT Code: Final Report FULL RESULT: EXAM: CT CHEST EXAM DATE: 01/28/2020 04:30 PM. CLINICAL HISTORY: Shortness of breath. COMPARISONS: 02/15/2019 chest radiograph. TECHNIQUE: Routine helical CT imaging was performed through the chest. IV contrast: None. Reconstructions: Coronal and sagittal. In accordance with CT protocol optimization, one or more of the following dose reduction techniques were utilized for this exam: automated exposure control, adjustment of mA and/or KV based on patient size, or use of iterative reconstructive technique. FINDINGS: Lungs/Pleura: Faint multilobar peripheral groundglass opacities, greatest within the right middle and lower lobes, with a reticular pattern of interlobular septal thickening. There is also superimposed consolidation within the right middle lobe. Mild bronchiectasis is also present within the right middle and lower lobes. Minimal dependent atelectasis or scarring at the far inferior left lower lobe. No pleural effusion or pneumothorax. Mediastinum: No pathologically enlarged mediastinal lymph nodes. No masses. Mild cardiomegaly with aortic coronary calcification. Hiatal hernia. Bones: Age-indeterminate T11 burst fracture with 90% anterior vertebral body height loss and 4 mm retropulsion of the posterior cortex into the canal. No additional fractures are identified. Visualized Abdomen: Renal cortical atrophy. Otherwise unremarkable upper abdominal structures. Other: None. IMPRESSION: 1. Lower lobe predominant fibrotic changes with adjacent faint groundglass opacities, bronchiectasis, and peripheral consolidation in the right middle lobe. Although findings are consistent with chronic fibrotic lung disease, superimposed viral pneumonia is not excluded given the presence of groundglass and consolidative opacities. 2. T11 burst fracture, age indeterminate, with 4 mm retropulsion of the posterior cortex into the central canal. 3. Cardiomegaly with aortic coronary calcification. 4. Renal cortical atrophy. 5. Hiatal hernia. RADIA
[2020-01-28] MEDS ORDERED: FUROSEMIDE 20 MG/2 ML VIAL IVP STA (17:48)
[2020-01-28] MEDS ORDERED: cefTRIAXone 1 GM VIAL IVP STA (17:59)
[2020-01-28] MEDS ORDERED: AZITHROMYCIN INJ 500 MG in SODIUM CHLORIDE 0.9% 250 ML IV STA (17:59)
[2020-01-28] MEDS ORDERED: CLOPIDOGREL 75 MG TABLET PO STA (18:03)
[2020-01-28] MEDS ORDERED: SODIUM CHLORIDE FLUSH 0.9% 10 ML SYRINGE IVP PRN (18:18)
[2020-01-28] MEDS ORDERED: ONDANSETRON 4 MG/2 ML VIAL IVP PRN (18:18)
[2020-01-28] MEDS ORDERED: ACETAMINOPHEN 325 MG TABLET PO PRN (18:18)
[2020-01-28] MEDS ORDERED: MORPHINE 2 MG/ML CARPUJECT IVP PRN (18:18)
[2020-01-28] MEDS ORDERED: SODIUM CHLORIDE 0.9% 1,000 ML IV SCH (19:00)
[2020-01-28 19:11] LABS: ABG PCO2 38 mmHg (34-45); ABG PH 7.39 (7.35-7.45)
[2020-01-28 19:12] LABS: ABG HCO3 22.8 mmol/L (22.0-26.0); ALLEN TEST POSITIVE
[2020-01-28 19:14] LABS: ABG OXYGEN SATURATION 80 % (94-98); ABG PO2 44 mmHg (80-100)
[2020-01-28] MEDS ORDERED: ASPIRIN CHEW 81 MG TABLET PO STA (20:21)
--- NOTE | 2020-01-28 21:09 | HISTORY & PHYSICAL EXAMINATION ---
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 This afternoon she was watching TV when her son noticed she appeared uncomfortable. He asked her a question and she was unable to answer. He immediately called EMS and upon their arrival, she had return back to her baseline. She reports having a stroke in the past. She did receive TPA back in March when she admitted at [facility] in [place]. She does not have a history of A. fib and is not on any anticoagulation. She was previously on aspirin and Plavix but is now only taking baby aspirin. She states she not take any of her medications today. In the emergency room, she was noted to be hypoxic and she was placed on oxygen. Patient denies feeling dyspneic and reports no cough, fever, chills. She denies any recent sick contacts. She reports her lower extremities are always edematous and they are not more swollen than usual. I did speak with her son who stated that she had been feeling short of breath for over a month now. The patient is also complaining of back pain. She was recently prescribed hydrocodone for a compression fracture. Reports no prior cardiac history. She does have a history of hypertension for which takes metoprolol and lisinopril. She currently reports no chest pain. In the emergency department, she was found to be hypoxic and was placed on 4 L of oxygen via nasal cannula. Blood gas was obtained which showed a PO2 of 53 despite 6 L of oxygen. She was then placed on a nonrebreather at 15 L a minute. A repeat blood gas was obtained which showed a PO2 of 44 but her oxygenation was 80% and suspect this may have been a venous blood gas or mixed. She underwent a CT of the head which did not show any acute abnormalities. Chest x- ray showed a large hiatal hernia with left lower lobe atelectasis. Underwent a CT of the chest without contrast which showed lower lobe fibrotic changes with faint groundglass opacities and bronchiectasis as well as peripheral consolidati on in the right middle lobe. 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 A CT of the lumbar spine showed a T11 burst fracture with a 4 mm retropulsion of the posterior cortex into the central canal. EKG shows sinus rhythm with flattening of T waves in leads V2 through V6 which are new. Her QT is also prolonged. I did discuss goals of care with both the patient and her son, Alek. The patient states that she is a DNR. She has a POLST form which states she is a DNR and DNI. After discussion with her son, the patient is agreeable to intubation as long as it is short-term. She would not want prolonged mechanical ventilation or tracheostomy. I did discuss with both her and her son given her current condition and her age, is difficult to say what her prognosis would be but the concern would be prolonged mechanical ventilation with difficulty liberating her from the ventilator. They do understand this and would still like to proceed with intubation if necessary. She is a DNR and does not want CPR. 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 She is a non-smoker. She does drink scotch on a daily basis. - Substance History Use: Uses substance without health or social issues: Alcohol Meds/Allgy - Home Medications Home Medications: Ambulatory Orders Medication Instructions Recorded Confirmed Calcium Carbonate/Vitamin D3 1 cap PO BID 06/01/17 01/09/20 [Calcium 600-Vit D3 500 Softgel] Iron Polysacch/Iron Heme Polyp 28 mg PO ONCE 06/01/17 01/09/20 [Duofer 28 mg Tablet] Metoprolol Tartrate 25 mg PO BID 06/01/17 01/09/20 Quinapril HCl 20 mg PO BID 06/01/17 01/09/20 Atorvastatin Calcium 40 mg PO DAILY 11/01/18 01/09/20 Aspirin Chewable [[place] 81 mg PO DAILY 02/15/19 01/09/20 Aspirin] predniSONE [Prednisone] 50 mg PO DAILY 12/06/19 01/09/20 Hydrochlorothiazide 1 tab PO DAILY 01/02/20 01/09/20 Potassium Chloride 10 meq PO DAILY 01/09/20 01/09/20 - Allergies Allergies/Adverse Reactions: Allergies Allergy/AdvReac Type Severity Reaction Status Date / Time No Known Drug Allergies Allergy Verified 01/28/20 15:50 Review of Systems - Constitutional Constitutional: denies: Fever, Chills, Malaise, Weakness - Eyes Eyes: denies: Blurred vision - Cardiovascular Cariovascular: reports: Edema. denies: Chest pain - Respiratory Respiratory: denies: Cough, Sputum production, SOB at rest, SOB with exertion - Gastrointestinal Gastrointestinal: denies: Abdominal pain, Nausea, Vomiting - Genitourinary Genitourinary: denies: Dysuria, Frequency, Urgency - Musculoskeletal Musculoskeletal: denies: Muscle pain - Integumentary Integumentary: denies: Rash - Neurological Neurological: reports: Other (Difficulty speaking). denies: General weakness, Focal weakness - All Other Systems All Other Systems: reports: Other (Review of systems is limited given her respiratory status.) Prior Level of Functionality: It appears she is independent with her ADLs although further history need to be obtained. This was limited given her respiratory status and critical condition. Exam - Vital Signs Reviewed Vital Signs: Yes Vital Signs: Vital Signs x48h Temp Pulse Pulse Resp BP BP Pulse Ox 01/28/20 20:18 36.3 C L 94 20 155/85 H 94 01/28/20 19:00 101 H 18 144/77 H 96 01/28/20 17:56 77 16 137/77 H 90 L 01/28/20 15:51 87 15 150/84 H 92 - Physical Exam General Appearance: positive: Alert, Mild distress Eyes Bilateral: positive: Conjunctivae nml ENT: positive: ENT inspection nml, Other (Face mask in place. Nose appears cyanotic) Neck: positive: Nml inspection Respiratory: positive: No respiratory distress, Rhonchi (Bilaterally), Other (She is slightly tachypnic but not in respiratory distress. No accessory muscle usage. She does speak in short sentences at times.) Cardiovascular: positive: Regular rate & rhythm, No murmur. negative: Irregularly irregular, Tachycardia, Bradycardia Abdomen: positive: Non-tender, No distention. negative: Tenderness Skin: positive: Warm, Dry Extremities: positive: Full ROM, Pedal edema (+2 pitting edema in bilateral lower extremities, slightly increased in left extremity compared to left.) Neurologic/Psychiatric: positive: Oriented x3, Motor nml, Sensation nml, Other (There is no focal motor deficits. Sensation is intact in her lower extremities and upper extremities. She moving all extremities without any deficits. Cranial nerves appear grossly intact.). negative: Disoriented to person, Disoriented to place, Disoriented to time, Facial droop, Slurred/abnml speech Conclusion/Plan - Problem List (1) Acute respiratory failure with hypoxia Conclusion/Plan: This is likely multifactorial. Imaging is concerning for possible pneumonia although with her elevated BNP, concern is for possible heart failure given her NSTEMI and elevated troponin. Her d-dimer is also elevated and given that her CT findings are not impressive, this could possibly be a pulmonary embolism. She is now saturating 91% on 15 L via nonrebreather. Fortunately she does appear comfortable and not tachypneic. At this time, we will continue her on IV antibiotics with doxycycline and ceftriaxone IV given her prolonged QTC. We will also diurese her with IV Lasix 40 mg daily. We will start her on anticoagulation given the NSTEMI as well as possible pulmonary embolism. We will obtain Dopplers of her lower extremities to evaluate for DVT given her a cute kidney injury as we would like to hold off on contrast for the time being and she has to be anticoagulated either wayObtain an echocardiogram. She will be ruled out for the novel coronavirus. We will also check influenza. Once again, I did discuss goals of care with the patient and her son, they are okay with intubation if it is short-term. They made it clear they do not want prolonged mechanical ventilation or tracheostomy. And her saturations are maintaining at the moment on 15 L nonrebreather, we will repeat an ABG and reassess. Will consider BiPAP if need be we would like to hold off on intubation unless it is absolutely necessary given I suspect it will be difficult to liberate her from the ventilator. (2) NSTEMI (non-ST elevated myocardial infarction) Conclusion/Plan: Troponin is elevated at nearly 1000 hours appears to be relatively flat at the moment. Her EKG does show flattening of the T waves in leads V2 to V6. She does not have any chest pain. We did give her 325 mg of aspirin. We will start her on anticoagulation with heparin given the concern for PE as well. Will start her on beta-luanne and statin. Obtain an echocardiogram. Depending on her clinical course, will discuss with cardiology if there is a need for an angiogram. (3) Community acquired pneumonia Conclusion/Plan: CT of the chest concerning for bilateral groundglass opacities and possible viral pneumonia. She is being ruled out for novel coronavirus. I am not sure that the pneumonia would explain the hypoxia alone as her CT is not impressive overall. We will start her on doxycycline and ceftriaxone IV given her prolonged QT. Follow-up the novel coronavirus PCR. Continue with oxygen as needed. (4) Suspected CHF (congestive heart failure) Conclusion/Plan: Suspect given her elevated BNP and bilateral groundglass opacities also could also be pneumonia. She received 40 mg of IV Lasix in the emerge department. We will continue her on IV Lasix daily. We will obtain an echocardiogram. Monitor on telemetry. Continue to trend her troponin. Daily weights. Will place Espinal for strict ins and outs. (5) TIA (transient ischemic attack) Conclusion/Plan: Her initial presentation is concerning for TIA given her expressive aphasia. She does have a history of stroke in the past with no residual deficits on exam. She was given aspirin given the concern for stroke as well as the NSTEMI. Fortunately her deficits have resolved and this was likely a TIA. CT the head did not show any acute abnormalities. Given low suspicion for stroke, we will anticoagulate her for the NSTEMI. Will hold off on obtaining an MRI of the brain for the time being given her respiratory status. We will also hold off on Dopplers at the moment until her respiratory status improves. We will continue with daily aspirin and Lipitor (6) Burst fracture of thoracic vertebra Conclusion/Plan: She has a burst fracture of T12. There is mild retropulsion causing mild central canal narrowing. She is not have any neurologic deficits at this moment. We will treat her pain with morphine IV as needed. Qualifiers: Encounter type: initial encounter (7) Acute kidney injury Conclusion/Plan: Creatinine is elevated at 1.2 with a baseline of 0.6. Suspect this injury is prerenal and likely due to cardiorenal syndrome. We will diurese her given the NSTEMI and suspected heart failure. We will closely monitor her renal function and urine output. (8) Hyponatremia Conclusion/Plan: Sodium is decreased at 132 and she does appear hypervolemic on exam. Suspect this will improve with IV diuresis. We will monitor her sodium. (9) Hemolytic anemia Conclusion/Plan: She is currently on daily prednisone 5 mg. We will resume this while she is hospitalized. She ready completed a course of Rituxan so she is immunocompromised and at risk for superimposed infection. Qualifiers: Hemolytic anemia type: acquired, autoimmune, other Qualified Code(s): D59.1 - Other autoimmune hemolytic anemias - Lab Results Lab results reviewed: Yes Fish Bones: 01/28/20 16:30 01/28/20 16:30 - Diagnostic Imaging Results Diagnostic Imaging Results: positive: Final report reviewed, Read independently Diagnostic Imaging Results Comments: CT of the chest does show bilateral groundglass opacities all these do not appear to be significant - EKG Results EKG Interpreted Independently: Yes EKG Findings: EKG shows sinus rhythm with flattening of T waves in leads V2 through V6 which are new. Her QT is also prolonged. Core Measures - Anticipated LOS I expect patient to be DC'd or transferred within 96 hours.: Yes - Issues Hospital Issues and Management Plan: 4-year-old female with acute hypoxic respiratory failure and TIA. There is now concern for new heart failure and a non-ST elevation myocardial infarction. As well as possible pneumonia. We will start her on IV antibiotics and anticoagulation. Obtain echocardiogram. - DVT/VTE - Prophylaxis VTE/DVT Device ordered at admit?: Yes VTE/DVT Prophylaxis med ordered at admit?: No
[2020-01-28] MEDS: ATORVASTATIN 40 MG TABLET PO SCH (21:54)
[2020-01-28] MEDS: DOXYCYCLINE INJ 100 MG in SODIUM CHLORIDE 0.9% MINIBAG 100 ML IV SCH (21:57)
--- NOTE | 2020-01-28 21:57 | Ultrasound Report ---
Reason: Hypoxia. Eval for DVT. Procedure Date: 01/28/2020 Accession Number: [id number] / [id number] Procedure: US - Duplex Ext Veins Bilateral CPT Code: Final Report FULL RESULT: EXAM: BILATERAL LOWER EXTREMITY VENOUS ULTRASOUND EXAM DATE: 01/28/2020 09:20 PM. CLINICAL HISTORY: Hypoxia. Evaluate for DVT. COMPARISON: None. TECHNIQUE: Real-time sonographic vascular imaging was performed by the records supervisor through the lower extremities utilizing both color-flow and Doppler spectral analysis. Multiple patient portal representative static images were saved for review. FINDINGS: Right: Common Femoral Vein (CFV): Normal. CFV-GSV Junction: Normal. Profunda Femoral Vein (PFV): Normal. Femoral Vein (FV) Prox: Normal. Femoral Vein (FV) Mid: Normal. Femoral Vein (FV) Dist: Normal. Popliteal Vein: Normal. Calf veins: Suboptimally visualized. Left: Common Femoral Vein (CFV): Normal. CFV-GSV Junction: Normal. Profunda Femoral Vein (PFV): Normal. Femoral Vein (FV) Prox: Normal. Femoral Vein (FV) Mid: Normal. Femoral Vein (FV) Dist: Normal. Popliteal Vein: Normal. Calf veins: Suboptimally visualized. Other: Right medial knee fluid collection, measuring 1.9 x 0.7 x 2.1 cm, most consistent with a popliteal cyst. Bilateral calf edema. IMPRESSION: No evidence for deep venous thrombosis bilaterally. Calf veins are suboptimally visualized. RADIA
[2020-01-28] MEDS: POTASSIUM CHLOR 10 MEQ/100 ML 10 MEQ/100 ML BAG IV SCH (22:01)
[2020-01-29 00:19] LABS: BILIRUBIN,URINE NEGATIVE (NEGATIVE); GLUCOSE, URINE (UA) NEGATIVE (NEGATIVE); KETONES,URINE (UA) NEGATIVE (NEGATIVE); LEUKOCYTE ESTERASE, URINE NEGATIVE (NEGATIVE); NITRITE,URINE NEGATIVE (NEGATIVE); OCCULT BLOOD,URINE MODERATE (NEGATIVE); PH,URINE 5.5 PH (5.0-7.5); PROTEIN,URINE NEGATIVE (NEGATIVE); UROBILINOGEN,URINE 0.2 (NORMAL) E.U./dL (NORMAL)
[2020-01-29 00:20] LABS: CLARITY,URINE CLEAR (CLEAR)
[2020-01-29] MEDS: POTASSIUM CHLOR 10 MEQ/100 ML 10 MEQ/100 ML BAG IV SCH ×5 (00:20→03:04)
[2020-01-29] MEDS: METOPROLOL 5 MG/5 ML VIAL IVP SCH ×2 (00:24→06:25)
[2020-01-29 00:25] LABS: BACTERIA,URINE None Seen /HPF (None Seen); SQUAMOUS EPITHELIAL CELL,UR NONE SEEN (<= Few)
[2020-01-29] MEDS: HEPARIN 25000UNITS/500ML (D5W) 25,000 UNIT/500 ML BAG IV SCH (00:30)
[2020-01-29] MEDS: SODIUM CHLORIDE FLUSH 0.9% 10 ML SYRINGE IVP SCH ×3 (01:03→20:58)
[2020-01-29] MEDS ORDERED: FUROSEMIDE 20 MG TABLET PO SCH (06:00)
[2020-01-29] MEDS: PANTOPRAZOLE 40 MG TABLET PO SCH (06:41)
[2020-01-29 06:50] LABS: BASOPHILS % (AUTO) 0.5 %; EOSINOPHILS % (AUTO) 0.5 %; HGB - HEMOGLOBIN 14.4 g/dL (12.0-16.0); LYMPHOCYTES # (AUTO) 0.9 10^3/uL (1.5-3.5); LYMPHOCYTES % (AUTO) 15.7 %; MEAN CORPUSCULAR HEMOGLOBIN 35.6 pg (27.0-31.0); MEAN CORPUSCULAR HGB CONC 33.6 g/dL (32.0-36.0); MEAN CORPUSCULAR VOLUME 105.9 fL (81.0-99.0); MEAN PLATELET VOLUME 9.9 fL (7.9-10.8); MONOCYTES # (AUTO) 0.8 10^3/uL (0.0-1.0); MONOCYTES % (AUTO) 13.9 %; NEUTROPHILS # (AUTO) 3.9 10^3/uL (1.5-6.6); NEUTROPHILS % (AUTO) 68.5 %; PLT - PLATELET COUNT 148 10^3/uL (130-450); RED BLOOD COUNT 4.05 10^6/uL (4.20-5.40); RED CELL DISTRIBUTION WIDTH 15.4 % (12.0-15.0); WHITE BLOOD COUNT 5.7 x10^3/uL (4.8-10.8)
[2020-01-29 07:08] LABS: ALBUMIN 3.6 g/dL (3.2-5.5); ALBUMIN/GLOBULIN RATIO 1.2 (1.0-2.2); BILIRUBIN,TOTAL 1.9 mg/dL (0.2-1.0); CALCIUM 8.3 mg/dL (8.5-10.3); CREATININE 0.9 mg/dL (0.4-1.0); MAGNESIUM 1.9 mg/dL (1.7-2.8); PHOSPHORUS 4.1 mg/dL (2.5-4.6); TOTAL PROTEIN 6.5 g/dL (6.7-8.2)
[2020-01-29 07:46] LABS: VBG PH 7.361 (7.31-7.41)
[2020-01-29] MEDS ORDERED: POTASSIUM CHLORIDE 20 MEQ TABLET PO ONE (08:00)
--- NOTE | 2020-01-29 08:22 | PROVIDER PROGRESS NOTE ---
Subjective - Prog Note Date Prog Note Date: 01/29/20 - Subjective Pt reports feeling: No change Subjective: She reports feeling well this morning. She continues to deny any chest pain or dyspnea. She states her back pain is not bothersome when she is sitting still but with any slight movement, her pain is quite severe. It does improve with the morphine IV. Current Medications - Current Medications Current Medications: Active Medications Acetaminophen (Tylenol) 650 mg PO Q4HR PRN PRN Reason: Pain 1 to 4 Atorvastatin Calcium (Lipitor) 40 mg PO QPM [facility] Last Admin: 01/28/20 21:54 Dose: 40 mg Ceftriaxone Sodium (Rocephin) 1 gm IVP DAILY [facility] Clopidogrel Bisulfate (Plavix) 75 mg PO DAILY [facility] Last Admin: 01/29/20 08:38 Dose: 75 mg Furosemide (Lasix Inj 40 Mg Vial) 40 mg IVP DAILY [facility] Heparin Sodium (Porcine) () 1,500 unit 25 unit/kg (1500 unit) IVP Q6H PRN PRN Reason: ANTI-XA < 0.2 Doxycycline Hyclate 100 mg/ (Sodium Chloride) 100 mls @ 100 mls/hr IV BID [facility] Last Infusion: 01/28/20 23:00 Dose: Infused Heparin Sodium/Dextrose () 25,000 unit in 500 mls @ 15 mls/hr IV .[id number] [facility]; Protocol Last Admin: 01/29/20 00:30 Dose: 12 unit/kg/hr, 14.52 mls/hr Lisinopril (Zestril) 20 mg PO DAILY [facility] Last Admin: 01/29/20 08:49 Dose: 20 mg Metoprolol Succinate (Toprol Xl) 50 mg PO DAILY [facility] Last Admin: 01/29/20 08:52 Dose: 50 mg Morphine Sulfate (Morphine (Carpuject)) 2 mg IVP Q2HR PRN PRN Reason: Pain 8 to 10 Last Admin: 01/28/20 19:03 Dose: 2 mg Ondansetron HCl (Zofran Inj) 4 mg IVP Q6HR PRN PRN Reason: Nausea / Vomiting Oxycodone HCl (Roxicodone) 5 mg PO Q4HR PRN PRN Reason: PAIN Last Admin: 01/29/20 08:36 Dose: 5 mg Pantoprazole Sodium (Protonix) 40 mg PO QDAC [facility] Last Admin: 01/29/20 06:41 Dose: 40 mg Prednisone (Deltasone) 5 mg PO DAILYWM [facility] Last Admin: 01/29/20 08:42 Dose: 5 mg Sodium Chloride (Normal Saline Flush 0.9%) 10 ml IVP PRN PRN PRN Reason: NEEDED PER PROVIDER ORDERS Sodium Chloride (Normal Saline Flush 0.9%) 10 ml IVP 0100,0900,1700 [facility] Last Admin: 01/29/20 08:51 Dose: Not Given Calcium Carbonate/Vitamin D3 [Calcium 600-Vit D3 500 Softgel] 1 cap PO BID 06/01/17 Iron Polysacch/Iron Heme Polyp [Duofer 28 mg Tablet] 28 mg PO ONCE 06/01/17 Metoprolol Tartrate 25 mg PO BID 06/01/17 Quinapril HCl 20 mg PO BID 06/01/17 Atorvastatin Calcium 40 mg PO DAILY 11/01/18 Aspirin Chewable [St Anup Aspirin] 81 mg PO DAILY 02/15/19 predniSONE [Prednisone] 50 mg PO DAILY 12/06/19 Hydrochlorothiazide 1 tab PO DAILY 01/02/20 Potassium Chloride 10 meq PO DAILY 01/09/20 Objective - Vital Signs/Intake & Output Reviewed Vital Signs: Yes Vital Signs: Vital Signs Pulse Resp BP Pulse Ox 01/29/20 07:00 78 12 176/93 H 100 01/29/20 06:00 74 14 166/94 H 100 01/29/20 05:00 77 12 174/98 H 100 Intake & Output: Intake & Output 01/26/20 01/27/20 01/28/20 01/29/20 23:59 23:59 23:59 23:59 Intake Total 200 288 Output Total 525 600 Balance -325 -312 - Objective General Appearance: positive: No acute distress, Alert Eyes Bilateral: positive: Normal inspection, Conjunctivae nml ENT: positive: ENT inspection nml, Other (Nasal cannula in place) Neck: positive: Nml inspection Respiratory: positive: No respiratory distress, Rhonchi, Other (Faint bilateral rhonchi. Diminished breath sounds) Cardiovascular: positive: Regular rate & rhythm, No murmur. negative: Tachycardia, Systolic murmur, Diastolic murmur Abdomen: positive: Non-tender, No distention. negative: Tenderness Skin: positive: Warm, Dry Extremities: positive: Full ROM, Pedal edema (She has +2 pitting edema in the bilateral lower extremities.) Neurologic/Psychiatric: positive: Oriented x3, Motor nml, Other (No focal motor deficits on exam). negative: Disoriented to person, Disoriented to place, Disoriented to time - Lab Results Fish Bones: 01/29/20 06:40 01/29/20 06:40 Other Labs: Lab Results x24hrs 01/29/20 01/29/20 01/29/20 Range/Units 07:37 06:40 06:40 WBC (4.8-10.8) x10^3/uL RBC (4.20-5.40) 10^6/uL Hgb (12.0-16.0) g/dL Hct (37.0-47.0) % MCV (81.0-99.0) fL MCH (27.0-31.0) pg MCHC (32.0-36.0) g/dL RDW (12.0-15.0) % Plt Count (130-450) 10^3/uL MPV (7.9-10.8) fL Neut # (Auto) (1.5-6.6) 10^3/uL Lymph # (Auto) (1.5-3.5) 10^3/uL [place] # (Auto) (0.0-1.0) 10^3/uL Eos # (Auto) (0.0-0.7) 10^3/uL Baso # (Auto) (0.0-0.1) 10^3/uL Absolute Nucleated RBC x10^3/uL Nucleated RBC % /100WBC PT (9.9-12.6) secs INR (0.8-1.2) APTT (24.9-33.3) secs D-Dimer (200.0-255.0) ng/mL Anti-Xa Level 0.3 ( - 0.7) U/mL Bld Gas Analysis Time Sample Site ABG pH (7.35-7.45) ABG pCO2 (34-45) mmHg ABG pO2 (80-100) mmHg ABG HCO3 (22.0-26.0) mmol/L ABG Total CO2 (21.0-29.0) MMOL/L ABG O2 Saturation (94-98) % ABG Base Excess (-2.0-3.0) mmol/L Lang Test VBG pH 7.361 (7.31-7.41) Ionized Calcium 1.09 L (1.15-1.33) mmol/L O2 Delivery Device O2 Liters/Min LPM FiO2 Sodium (135-145) mmol/L Potassium (3.5-5.0) mmol/L Chloride (101-111) mmol/L Carbon Dioxide (21-32) mmol/L Anion Gap (6-13) BUN (6-20) mg/dL Creatinine (0.4-1.0) mg/dL Estimated GFR (MDRD) (>89) Glucose (70-100) mg/dL Calcium (8.5-10.3) mg/dL Phosphorus (2.5-4.6) mg/dL Magnesium (1.7-2.8) mg/dL Total Bilirubin (0.2-1.0) mg/dL AST (10-42) IU/L ALT (10-60) IU/L Alkaline Phosphatase (42-121) IU/L Troponin I High Sens 1089.3 H* (2.3-14.8) ng/L B-Natriuretic Peptide (5-100) pg/mL Total Protein (6.7-8.2) g/dL Albumin (3.2-5.5) g/dL Globulin (2.1-4.2) g/dL Albumin/Globulin Ratio (1.0-2.2) Lipase (22-51) U/L Urine Color Urine Clarity (CLEAR) Urine pH (5.0-7.5) PH Ur Specific [place] (1.002-1.030) Urine Protein (NEGATIVE) mg/dL Urine Glucose (UA) (NEGATIVE) mg/dL Urine Ketones (NEGATIVE) mg/dL Urine Occult Blood (NEGATIVE) Urine Nitrite (NEGATIVE) Urine Bilirubin (NEGATIVE) Urine Urobilinogen (NORMAL) E.U./dL Ur Leukocyte Esterase (NEGATIVE) Urine RBC (0-5) /HPF Urine WBC (0-5) /HPF Ur Squamous Epith Cells (<= Few) Urine Bacteria (None Seen) /HPF Nasal Screen MRSA (PCR) (NEGATIVE) 01/29/20 01/29/20 01/29/20 Range/Units 06:40 06:40 06:40 WBC 5.7 (4.8-10.8) x10^3/uL RBC 4.05 L (4.20-5.40) 10^6/uL Hgb 14.4 (12.0-16.0) g/dL Hct 42.9 (37.0-47.0) % MCV 105.9 H (81.0-99.0) fL MCH 35.6 H (27.0-31.0) pg MCHC 33.6 (32.0-36.0) g/dL RDW 15.4 H (12.0-15.0) % Plt Count 148 (130-450) 10^3/uL MPV 9.9 (7.9-10.8) fL Neut # (Auto) 3.9 (1.5-6.6) 10^3/uL Lymph # (Auto) 0.9 L (1.5-3.5) 10^3/uL [place] # (Auto) 0.8 (0.0-1.0) 10^3/uL Eos # (Auto) 0.0 (0.0-0.7) 10^3/uL Baso # (Auto) 0.0 (0.0-0.1) 10^3/uL Absolute Nucleated RBC 0.00 x10^3/uL Nucleated RBC % 0.0 /100WBC PT (9.9-12.6) secs INR (0.8-1.2) APTT (24.9-33.3) secs D-Dimer (200.0-255.0) ng/mL Anti-Xa Level ( - 0.7) U/mL Bld Gas Analysis Time Sample Site ABG pH (7.35-7.45) ABG pCO2 (34-45) mmHg ABG pO2 (80-100) mmHg ABG HCO3 (22.0-26.0) mmol/L ABG Total CO2 (21.0-29.0) MMOL/L ABG O2 Saturation (94-98) % ABG Base Excess (-2.0-3.0) mmol/L Lang Test VBG pH (7.31-7.41) Ionized Calcium (1.15-1.33) mmol/L O2 Delivery Device O2 Liters/Min LPM FiO2 Sodium 134 L (135-145) mmol/L Potassium 3.3 L (3.5-5.0) mmol/L Chloride 100 L (101-111) mmol/L Carbon Dioxide 23 (21-32) mmol/L Anion Gap 11.0 (6-13) BUN 20 (6-20) mg/dL Creatinine 0.9 (0.4-1.0) mg/dL Estimated GFR (MDRD) 60 L (>89) Glucose 106 H (70-100) mg/dL Calcium 8.3 L (8.5-10.3) mg/dL Phosphorus 4.1 (2.5-4.6) mg/dL Magnesium 1.9 (1.7-2.8) mg/dL Total Bilirubin 1.9 H (0.2-1.0) mg/dL AST 34 (10-42) IU/L ALT 17 (10-60) IU/L Alkaline Phosphatase 88 (42-121) IU/L Troponin I High Sens (2.3-14.8) ng/L B-Natriuretic Peptide 709 H (5-100) pg/mL Total Protein 6.5 L (6.7-8.2) g/dL Albumin 3.6 (3.2-5.5) g/dL Globulin 2.9 (2.1-4.2) g/dL Albumin/Globulin Ratio 1.2 (1.0-2.2) Lipase (22-51) U/L Urine Color Urine Clarity (CLEAR) Urine pH (5.0-7.5) PH Ur Specific [place] (1.002-1.030) Urine Protein (NEGATIVE) mg/dL Urine Glucose (UA) (NEGATIVE) mg/dL Urine Ketones (NEGATIVE) mg/dL Urine Occult Blood (NEGATIVE) Urine Nitrite (NEGATIVE) Urine Bilirubin (NEGATIVE) Urine Urobilinogen (NORMAL) E.U./dL Ur Leukocyte Esterase (NEGATIVE) Urine RBC (0-5) /HPF Urine WBC (0-5) /HPF Ur Squamous Epith Cells (<= Few) Urine Bacteria (None Seen) /HPF Nasal Screen MRSA (PCR) (NEGATIVE) 01/29/20 01/29/20 01/28/20 Range/Units 04:55 00:00 21:20 WBC (4.8-10.8) x10^3/uL RBC (4.20-5.40) 10^6/uL Hgb (12.0-16.0) g/dL Hct (37.0-47.0) % MCV (81.0-99.0) fL MCH (27.0-31.0) pg MCHC (32.0-36.0) g/dL RDW (12.0-15.0) % Plt Count (130-450) 10^3/uL MPV (7.9-10.8) fL Neut # (Auto) (1.5-6.6) 10^3/uL Lymph # (Auto) (1.5-3.5) 10^3/uL [place] # (Auto) (0.0-1.0) 10^3/uL Eos # (Auto) (0.0-0.7) 10^3/uL Baso # (Auto) (0.0-0.1) 10^3/uL Absolute Nucleated RBC x10^3/uL Nucleated RBC % /100WBC PT (9.9-12.6) secs INR (0.8-1.2) APTT (24.9-33.3) secs D-Dimer (200.0-255.0) ng/mL Anti-Xa Level 0.0 ( - 0.7) U/mL Bld Gas Analysis Time Sample Site ABG pH (7.35-7.45) ABG pCO2 (34-45) mmHg ABG pO2 (80-100) mmHg ABG HCO3 (22.0-26.0) mmol/L ABG Total CO2 (21.0-29.0) MMOL/L ABG O2 Saturation (94-98) % ABG Base Excess (-2.0-3.0) mmol/L Lang Test VBG pH (7.31-7.41) Ionized Calcium (1.15-1.33) mmol/L O2 Delivery Device O2 Liters/Min LPM FiO2 Sodium (135-145) mmol/L Potassium (3.5-5.0) mmol/L Chloride (101-111) mmol/L Carbon Dioxide (21-32) mmol/L Anion Gap (6-13) BUN (6-20) mg/dL Creatinine (0.4-1.0) mg/dL Estimated GFR (MDRD) (>89) Glucose (70-100) mg/dL Calcium (8.5-10.3) mg/dL Phosphorus (2.5-4.6) mg/dL Magnesium (1.7-2.8) mg/dL Total Bilirubin (0.2-1.0) mg/dL AST (10-42) IU/L ALT (10-60) IU/L Alkaline Phosphatase (42-121) IU/L Troponin I High Sens (2.3-14.8) ng/L B-Natriuretic Peptide (5-100) pg/mL Total Protein (6.7-8.2) g/dL Albumin (3.2-5.5) g/dL Globulin (2.1-4.2) g/dL Albumin/Globulin Ratio (1.0-2.2) Lipase (22-51) U/L Urine Color YELLOW Urine Clarity CLEAR (CLEAR) Urine pH 5.5 (5.0-7.5) PH Ur Specific [place] 1.015 (1.002-1.030) Urine Protein NEGATIVE (NEGATIVE) mg/dL Urine Glucose (UA) NEGATIVE (NEGATIVE) mg/dL Urine Ketones NEGATIVE (NEGATIVE) mg/dL Urine Occult Blood MODERATE H (NEGATIVE) Urine Nitrite NEGATIVE (NEGATIVE) Urine Bilirubin NEGATIVE (NEGATIVE) Urine Urobilinogen 0.2 (NORMAL) (NORMAL) E.U./dL Ur Leukocyte Esterase NEGATIVE (NEGATIVE) Urine RBC 6-10 H (0-5) /HPF Urine WBC 0-3 (0-5) /HPF Ur Squamous Epith Cells NONE SEEN (<= Few) Urine Bacteria None Seen (None Seen) /HPF Nasal Screen MRSA (PCR) NEGATIVE (NEGATIVE) 01/28/20 01/28/20 01/28/20 Range/Units 20:30 18:55 17:10 WBC (4.8-10.8) x10^3/uL RBC (4.20-5.40) 10^6/uL Hgb (12.0-16.0) g/dL Hct (37.0-47.0) % MCV (81.0-99.0) fL MCH (27.0-31.0) pg MCHC (32.0-36.0) g/dL RDW (12.0-15.0) % Plt Count (130-450) 10^3/uL MPV (7.9-10.8) fL Neut # (Auto) (1.5-6.6) 10^3/uL Lymph # (Auto) (1.5-3.5) 10^3/uL [place] # (Auto) (0.0-1.0) 10^3/uL Eos # (Auto) (0.0-0.7) 10^3/uL Baso # (Auto) (0.0-0.1) 10^3/uL Absolute Nucleated RBC x10^3/uL Nucleated RBC % /100WBC PT (9.9-12.6) secs INR (0.8-1.2) APTT (24.9-33.3) secs D-Dimer (200.0-255.0) ng/mL Anti-Xa Level ( - 0.7) U/mL Bld Gas Analysis Time 190 171 Sample Site RIGHT RADIAL LEFT RADIAL ABG pH 7.39 7.41 (7.35-7.45) ABG pCO2 38 34 (34-45) mmHg ABG pO2 44 L* 53 L* (80-100) mmHg ABG HCO3 22.8 21.4 L (22.0-26.0) mmol/L ABG Total CO2 24.0 22.0 (21.0-29.0) MMOL/L ABG O2 Saturation 80 L* 88 L (94-98) % ABG Base Excess -2.0 -3.0 L (-2.0-3.0) mmol/L Lang Test POSITIVE POSITIVE VBG pH (7.31-7.41) Ionized Calcium (1.15-1.33) mmol/L O2 Delivery Device NON REBREATHER MASK NASAL CANNULA O2 Liters/Min 6.00 LPM FiO2 15.00 Sodium (135-145) mmol/L Potassium (3.5-5.0) mmol/L Chloride (101-111) mmol/L Carbon Dioxide (21-32) mmol/L Anion Gap (6-13) BUN (6-20) mg/dL Creatinine (0.4-1.0) mg/dL Estimated GFR (MDRD) (>89) Glucose (70-100) mg/dL Calcium (8.5-10.3) mg/dL Phosphorus (2.5-4.6) mg/dL Magnesium (1.7-2.8) mg/dL Total Bilirubin (0.2-1.0) mg/dL AST (10-42) IU/L ALT (10-60) IU/L Alkaline Phosphatase (42-121) IU/L Troponin I High Sens 992.5 H* (2.3-14.8) ng/L B-Natriuretic Peptide (5-100) pg/mL Total Protein (6.7-8.2) g/dL Albumin (3.2-5.5) g/dL Globulin (2.1-4.2) g/dL Albumin/Globulin Ratio (1.0-2.2) Lipase (22-51) U/L Urine Color Urine Clarity (CLEAR) Urine pH (5.0-7.5) PH Ur Specific [place] (1.002-1.030) Urine Protein (NEGATIVE) mg/dL Urine Glucose (UA) (NEGATIVE) mg/dL Urine Ketones (NEGATIVE) mg/dL Urine Occult Blood (NEGATIVE) Urine Nitrite (NEGATIVE) Urine Bilirubin (NEGATIVE) Urine Urobilinogen (NORMAL) E.U./dL Ur Leukocyte Esterase (NEGATIVE) Urine RBC (0-5) /HPF Urine WBC (0-5) /HPF Ur Squamous Epith Cells (<= Few) Urine Bacteria (None Seen) /HPF Nasal Screen MRSA (PCR) (NEGATIVE) 01/28/20 01/28/20 01/28/20 Range/Units 16:30 16:30 16:30 WBC (4.8-10.8) x10^3/uL RBC (4.20-5.40) 10^6/uL Hgb (12.0-16.0) g/dL Hct (37.0-47.0) % MCV (81.0-99.0) fL MCH (27.0-31.0) pg MCHC (32.0-36.0) g/dL RDW (12.0-15.0) % Plt Count (130-450) 10^3/uL MPV (7.9-10.8) fL Neut # (Auto) (1.5-6.6) 10^3/uL Lymph # (Auto) (1.5-3.5) 10^3/uL [place] # (Auto) (0.0-1.0) 10^3/uL Eos # (Auto) (0.0-0.7) 10^3/uL Baso # (Auto) (0.0-0.1) 10^3/uL Absolute Nucleated RBC x10^3/uL Nucleated RBC % /100WBC PT (9.9-12.6) secs INR (0.8-1.2) APTT (24.9-33.3) secs D-Dimer > 1050.0 H (200.0-255.0) ng/mL Anti-Xa Level ( - 0.7) U/mL Bld Gas Analysis Time Sample Site ABG pH (7.35-7.45) ABG pCO2 (34-45) mmHg ABG pO2 (80-100) mmHg ABG HCO3 (22.0-26.0) mmol/L ABG Total CO2 (21.0-29.0) MMOL/L ABG O2 Saturation (94-98) % ABG Base Excess (-2.0-3.0) mmol/L Lang Test VBG pH (7.31-7.41) Ionized Calcium (1.15-1.33) mmol/L O2 Delivery Device O2 Liters/Min LPM FiO2 Sodium (135-145) mmol/L Potassium (3.5-5.0) mmol/L Chloride (101-111) mmol/L Carbon Dioxide (21-32) mmol/L Anion Gap (6-13) BUN (6-20) mg/dL Creatinine (0.4-1.0) mg/dL Estimated GFR (MDRD) (>89) Glucose (70-100) mg/dL Calcium (8.5-10.3) mg/dL Phosphorus (2.5-4.6) mg/dL Magnesium (1.7-2.8) mg/dL Total Bilirubin (0.2-1.0) mg/dL AST (10-42) IU/L ALT (10-60) IU/L Alkaline Phosphatase (42-121) IU/L Troponin I High Sens 914.2 H* (2.3-14.8) ng/L B-Natriuretic Peptide 1134 H (5-100) pg/mL Total Protein (6.7-8.2) g/dL Albumin (3.2-5.5) g/dL Globulin (2.1-4.2) g/dL Albumin/Globulin Ratio (1.0-2.2) Lipase (22-51) U/L Urine Color Urine Clarity (CLEAR) Urine pH (5.0-7.5) PH Ur Specific [place] (1.002-1.030) Urine Protein (NEGATIVE) mg/dL Urine Glucose (UA) (NEGATIVE) mg/dL Urine Ketones (NEGATIVE) mg/dL Urine Occult Blood (NEGATIVE) Urine Nitrite (NEGATIVE) Urine Bilirubin (NEGATIVE) Urine Urobilinogen (NORMAL) E.U./dL Ur Leukocyte Esterase (NEGATIVE) Urine RBC (0-5) /HPF Urine WBC (0-5) /HPF Ur Squamous Epith Cells (<= Few) Urine Bacteria (None Seen) /HPF Nasal Screen MRSA (PCR) (NEGATIVE) 01/28/20 01/28/20 01/28/20 Range/Units 16:30 16:30 16:30 WBC 5.6 (4.8-10.8) x10^3/uL RBC 4.21 (4.20-5.40) 10^6/uL Hgb 15.0 (12.0-16.0) g/dL Hct 45.1 (37.0-47.0) % MCV 107.1 H (81.0-99.0) fL MCH 35.6 H (27.0-31.0) pg MCHC 33.3 (32.0-36.0) g/dL RDW 15.9 H (12.0-15.0) % Plt Count 140 (130-450) 10^3/uL MPV 9.0 (7.9-10.8) fL Neut # (Auto) 4.7 (1.5-6.6) 10^3/uL Lymph # (Auto) 0.3 L (1.5-3.5) 10^3/uL [place] # (Auto) 0.5 (0.0-1.0) 10^3/uL Eos # (Auto) 0.0 (0.0-0.7) 10^3/uL Baso # (Auto) 0.0 (0.0-0.1) 10^3/uL Absolute Nucleated RBC 0.00 x10^3/uL Nucleated RBC % 0.0 /100WBC PT 13.9 H (9.9-12.6) secs INR 1.2 (0.8-1.2) APTT 28.8 (24.9-33.3) secs D-Dimer (200.0-255.0) ng/mL Anti-Xa Level ( - 0.7) U/mL Bld Gas Analysis Time Sample Site ABG pH (7.35-7.45) ABG pCO2 (34-45) mmHg ABG pO2 (80-100) mmHg ABG HCO3 (22.0-26.0) mmol/L ABG Total CO2 (21.0-29.0) MMOL/L ABG O2 Saturation (94-98) % ABG Base Excess (-2.0-3.0) mmol/L Lang Test VBG pH (7.31-7.41) Ionized Calcium (1.15-1.33) mmol/L O2 Delivery Device O2 Liters/Min LPM FiO2 Sodium 132 L (135-145) mmol/L Potassium 3.5 (3.5-5.0) mmol/L Chloride 99 L (101-111) mmol/L Carbon Dioxide 21 (21-32) mmol/L Anion Gap 12.0 (6-13) BUN 26 H (6-20) mg/dL Creatinine 1.2 H (0.4-1.0) mg/dL Estimated GFR (MDRD) 43 L (>89) Glucose 149 H (70-100) mg/dL Calcium 8.6 (8.5-10.3) mg/dL Phosphorus (2.5-4.6) mg/dL Magnesium 2.1 (1.7-2.8) mg/dL Total Bilirubin 2.3 H (0.2-1.0) mg/dL AST 31 (10-42) IU/L ALT 19 (10-60) IU/L Alkaline Phosphatase 121 (42-121) IU/L Troponin I High Sens (2.3-14.8) ng/L B-Natriuretic Peptide (5-100) pg/mL Total Protein 7.0 (6.7-8.2) g/dL Albumin 4.0 (3.2-5.5) g/dL Globulin 3.0 (2.1-4.2) g/dL Albumin/Globulin Ratio 1.3 (1.0-2.2) Lipase 25 (22-51) U/L Urine Color Urine Clarity (CLEAR) Urine pH (5.0-7.5) PH Ur Specific [place] (1.002-1.030) Urine Protein (NEGATIVE) mg/dL Urine Glucose (UA) (NEGATIVE) mg/dL Urine Ketones (NEGATIVE) mg/dL Urine Occult Blood (NEGATIVE) Urine Nitrite (NEGATIVE) Urine Bilirubin (NEGATIVE) Urine Urobilinogen (NORMAL) E.U./dL Ur Leukocyte Esterase (NEGATIVE) Urine RBC (0-5) /HPF Urine WBC (0-5) /HPF Ur Squamous Epith Cells (<= Few) Urine Bacteria (None Seen) /HPF Nasal Screen MRSA (PCR) (NEGATIVE) Assessment/Plan - Problem List (1) Acute respiratory failure with hypoxia Impression: Hypoxia significantly improved this morning. She is now down to 4 L via nasal cannula and is saturating 100%. This is a significant improvement compared to 15 L via nonrebreather yesterday where she was saturating in the mid 90s. At this time, suspect this is likely heart failure with a combination of pneumonia. She has improved with IV diuresis. Dopplers are negative do not suspect that she had a pulmonary embolism. We will continue with IV antibiotics at the moment. Novel coronavirus PCR is pending and we will follow that up. Continue with IV diuresis. We will likely transfer her to the floor this afternoon for oxygen requirements continue to improve (2) NSTEMI (non-ST elevated myocardial infarction) Impression: Troponins are still rising and now above 1000 but are relatively flat. She was started on heparin yesterday evening. EKG admission showed T wave flattening in leads V2 to V6. She continues to deny any chest pain. We will start her on Plavix 75 mg daily given she had a TIA while on aspirin as well as the heparin infusion for 48 hours. We have increased her beta-luanne to 50 mg daily. Start her on Lipitor 40 mg. We will obtain an echocardiogram tomorrow. Based off of her ejection fraction, will discuss with her and the family if they would want to proceed with further treatment including possible angiogram. Monitor on telemetry. (3) Community acquired pneumonia Impression: CT on the chest showed bilateral groundglass opacities which was concerning for possible viral pneumonia. She is being ruled out for novel coronavirus. Her hypoxia is improving and she is now down to 4 L of oxygen via nasal cannula. We will continue her on ceftriaxone and doxycycline with today being day 2. (4) Suspected CHF (congestive heart failure) Impression: Suspect is the primary cause of her respiratory failure. She did have a NSTEMI and her BNP was elevated at 1100. Today it is improved into the 700s. We will continue to diurese her with IV Lasix 40 mg daily. We will obtain an echocardiogram tomorrow. We will continue check daily weights. A Espinal catheter was unable to be placed but we do have an external catheter in place at the moment. Continue strict ins and outs. She is -600 mL since admission. (5) TIA (transient ischemic attack) Impression: Presentation was concerning for TIA given her expressive aphasia. Her symptoms have since resolved. We will start her on Plavix 75 mg daily given she had a TIA while on aspirin. We will obtain an MRI of the brain in the morning to evaluate for stroke. We will also obtain Dopplers now that her respiratory status has improved. Continue with Lipitor. (6) Burst fracture of thoracic vertebra Impression: She has a burst fracture of T12. There is mild retropulsion causing mild central canal narrowing. She is not have any neurologic deficits at this moment. We will start her on oral oxycodone today in hopes of decreasing her use of IV morphine. We will consult physical therapy when her oxygen requirements continue to decrease. Qualifiers: Encounter type: initial encounter (7) Acute kidney injury Impression: Her renal function is improving and back to baseline. Her injury was likely prerenal and secondary to cardiorenal given the heart failure. We will continue with IV diuresis. We will resume her home lisinopril today. Monitor her renal function and urine output (8) Hyponatremia Impression: Sodium is improving is now 134 which is increased from 132 on admission. This is likely hypervolemic hyponatremia given the suspected heart failure. This should continue to improve with IV diuresis. (9) Hypertension Impression: History of hypertension for which she takes quinapril and metoprolol. Her blood pressure has increased to the 160 systolic this morning. We will increase metoprolol to 50 mg daily. We will restart her on lisinopril 20 mg daily. We will also place her on labetalol IV as needed. Qualifiers: Hypertension type: essential hypertension Qualified Code(s): I10 - Essential (primary) hypertension (10) Hemolytic anemia Impression: Stable. We will continue her on her home prednisone of 5 mg daily. Qualifiers: Hemolytic anemia type: acquired, autoimmune, other Qualified Code(s): D59.1 - Other autoimmune hemolytic anemias
[2020-01-29] MEDS: oxyCODONE 5 MG TABLET PO PRN ×3 (08:36→21:04)
[2020-01-29] MEDS: predniSONE 5 MG TABLET PO SCH (08:42)
[2020-01-29] MEDS: lisinopriL 20 MG TABLET PO SCH (08:49)
[2020-01-29] MEDS: METOPROLOL SUCCINATE 25 MG TABLET PO SCH (08:52)
[2020-01-29] MEDS: FUROSEMIDE 40 MG/4 ML VIAL IVP SCH (08:57)
[2020-01-29] MEDS ORDERED: METOPROLOL SUCCINATE 25 MG TABLET PO SCH (09:00)
[2020-01-29] MEDS ORDERED: ASPIRIN CHEW 81 MG TABLET PO SCH (09:00)
[2020-01-29] MEDS ORDERED: CLOPIDOGREL 75 MG TABLET PO SCH (09:00)
[2020-01-29] MEDS ORDERED: ENOXAPARIN 40 MG/0.4 ML SYRINGE SUBQ SCH (09:00)
[2020-01-29] MEDS ORDERED: ASPIRIN EC 81 MG TABLET PO SCH (09:00)
[2020-01-29] MEDS: cefTRIAXone 1 GM VIAL IVP SCH (09:08)
[2020-01-29] MEDS ORDERED: LABETALOL 20 MG/4 ML SYRINGE IVP PRN (09:11)
[2020-01-29] MEDS: CLOPIDOGREL 75 MG TABLET PO SCH (09:23)
[2020-01-29] MEDS: DOXYCYCLINE INJ 100 MG in SODIUM CHLORIDE 0.9% MINIBAG 100 ML IV SCH ×2 (09:45→21:03)
[2020-01-29] MEDS: amLODIPine 5 MG TABLET PO SCH (09:48)
--- NOTE | 2020-01-29 09:55 | PHARMACY PROGRESS NOTE ---
- Best Possible Medication History Admit Date and Time: 01/28/201817 Processed by: Pharmacy Medication History completed: Yes Secondary Source(s): Physician records, Pharmacy records, Insurance records As the person ultimately responsible for medication therapy, providers are able to order a medication from an existing home medication list in [facility] via the "Reconcile Routine" prior to Confirmation of that medication by senior support engineer. Such practice is discouraged except when the physician, in their clinical judgment, deems that a medical need exists for a medication without regard to previous use.
--- NOTE | 2020-01-29 10:43 | CONSULTATION NOTE ---
Consultation Report: Called to ICU for placement of additional peripheral IV for patient requiring heparin gtt plus intermittent antibiotics. Ultrasound utilized to place #20G peripheral IV in Left antecubital space with arrow wire-guided needle over catheter system. Three unsuccessful attempts prior to succeeding (two on right arm, one on left). + blood aspirated via new IV, saline lock attached, and dressing secured. Luis Whitlock, HEAT TREAT INSPECTOR
--- NOTE | 2020-01-29 14:48 | Ultrasound Report ---
Reason: TIA Procedure Date: 01/29/2020 Accession Number: [id number] / [id number] Procedure: US - Carotid Doppler Complete CPT Code: Final Report FULL RESULT: EXAM: BILATERAL CAROTID AND VERTEBRAL ARTERY DUPLEX DOPPLER ULTRASOUND: EXAM DATE: 01/29/2020 12:33 PM CLINICAL HISTORY: Transient ischemic attack. COMPARISON: None. TECHNIQUE: Grayscale imaging, color Doppler, and duplex spectral Doppler were used to evaluate the carotid and vertebral arteries bilaterally. Static images were obtained. FINDINGS: Mild bilateral atherosclerotic plaquing. Normal antegrade flow is present in bilateral vertebral arteries. VELOCITIES (cm/s): Right CCA mid: PSV 39.6 cm/s CCA dist: PSV 37.3 cm/s ICA prox: PSV 34.7 cm/s, EDV 12.2 cm/s ICA mid: PSV 55.1 cm/s, EDV 20.7 cm/s ICA dist: PSV 67.9 cm/s, EDV 24.1 cm/s ECA: PSV 52.2 cm/s Vert: PSV 34.7 cm/s ICA/CCA: 1.7 Left CCA mid: PSV 54.7 cm/s CCA dist: PSV 48.7 cm/s ICA prox: PSV 27.6 cm/s, EDV 10.8 cm/s ICA mid: PSV 78.8 cm/s, EDV 20.2 cm/s ICA dist: PSV 112.4 cm/s, EDV 35.7 cm/s ECA: PSV 56.1 cm/s Vert: PSV 40.2 cm/s ICA/CCA: 2.1 ICA diameter stenosis: Right: <50% by velocity and <70% by NASCET criteria. Left: <50% by velocity and <70% by NASCET criteria. IMPRESSION: 1. Mild bilateral carotid artery plaquing. 2. In the right carotid artery there are no elevated carotid artery velocities to suggest hemodynamically significant stenosis. 3. In the left carotid artery there are no elevated carotid artery velocities to suggest hemodynamically significant stenosis. 4. Normal antegrade flow is present in bilateral vertebral arteries. General Recommendations: Stenosis =50% ICA - Follow-up ultrasound 6-12 months Stenosis <50% ICA - High Risk Patient with plaque - Follow-up ultrasound 1-2 years Normal Study but High Risk Patient - Follow-up ultrasound 3-5 years Management recommendations and diagnostic criteria are based on current IAC endorsed standards in Carotid Artery Stenosis: Grayscale and Doppler Ultrasound Diagnosis. Validated velocity measurements with angiographic measurements and velocity criteria are extrapolated from diameter data as defined by the Society of Radiologists in Ultrasound Consensus Conference Radiology 2003; 229;340-346. RADIA
[2020-01-29] MEDS: ATORVASTATIN 40 MG TABLET PO SCH (20:58)
[2020-01-30] MEDS: SODIUM CHLORIDE FLUSH 0.9% 10 ML SYRINGE IVP SCH ×3 (01:47→20:46)
[2020-01-30 04:54] LABS: BASOPHILS % (AUTO) 0.6 %; EOSINOPHILS # (AUTO) 0.1 10^3/uL (0.0-0.7); EOSINOPHILS % (AUTO) 1.4 %; HGB - HEMOGLOBIN 14.1 g/dL (12.0-16.0); LYMPHOCYTES % (AUTO) 19.9 %; MEAN CORPUSCULAR HEMOGLOBIN 35.3 pg (27.0-31.0); MEAN CORPUSCULAR HGB CONC 33.2 g/dL (32.0-36.0); MEAN CORPUSCULAR VOLUME 106.3 fL (81.0-99.0); MEAN PLATELET VOLUME 9.6 fL (7.9-10.8); MONOCYTES # (AUTO) 0.7 10^3/uL (0.0-1.0); MONOCYTES % (AUTO) 13.9 %; NEUTROPHILS # (AUTO) 3.2 10^3/uL (1.5-6.6); NEUTROPHILS % (AUTO) 63.8 %; PLT - PLATELET COUNT 151 10^3/uL (130-450); RED CELL DISTRIBUTION WIDTH 15.4 % (12.0-15.0)
[2020-01-30 05:07] LABS: ALBUMIN 3.3 g/dL (3.2-5.5); ALBUMIN/GLOBULIN RATIO 1.2 (1.0-2.2); BILIRUBIN,TOTAL 1.9 mg/dL (0.2-1.0); CALCIUM 8.3 mg/dL (8.5-10.3); CREATININE 0.8 mg/dL (0.4-1.0)
[2020-01-30] MEDS: HEPARIN 25000UNITS/500ML (D5W) 25,000 UNIT/500 ML BAG IV SCH (07:18)
[2020-01-30] MEDS: PANTOPRAZOLE 40 MG TABLET PO SCH (07:18)
[2020-01-30] MEDS: oxyCODONE 5 MG TABLET PO PRN ×3 (07:44→20:55)
[2020-01-30] MEDS: predniSONE 5 MG TABLET PO SCH (08:30)
[2020-01-30] MEDS: CLOPIDOGREL 75 MG TABLET PO SCH (08:30)
[2020-01-30] MEDS: lisinopriL 20 MG TABLET PO SCH (08:30)
[2020-01-30] MEDS: amLODIPine 5 MG TABLET PO SCH (08:30)
[2020-01-30] MEDS: FUROSEMIDE 40 MG/4 ML VIAL IVP SCH (08:31)
[2020-01-30] MEDS: METOPROLOL SUCCINATE 25 MG TABLET PO SCH (08:31)
[2020-01-30] MEDS: polyethylene glycoL 3350 17 GM PACKET PO SCH (08:31)
[2020-01-30] MEDS: cefTRIAXone 1 GM VIAL IVP SCH (08:32)
[2020-01-30] MEDS: DOXYCYCLINE INJ 100 MG in SODIUM CHLORIDE 0.9% MINIBAG 100 ML IV SCH ×2 (10:48→20:47)
[2020-01-30] MEDS ORDERED: PHENYLEPHRINE 20 MG in SODIUM CHLORIDE 0.9% 248 ML IV ONE (16:00)
[2020-01-30] MEDS: ATORVASTATIN 40 MG TABLET PO SCH (20:47)
--- NOTE | 2020-01-30 21:09 | PROVIDER PROGRESS NOTE ---
Subjective - Prog Note Date Prog Note Date: 01/30/20 Prog Note Time: 21:07 - Subjective Pt reports feeling: Improved Current Medications - Current Medications Current Medications: Medications Summary Amlodipine Besylate (Norvasc) 5 mg PO DAILY [facility] Last Admin: 01/30/20 08:30 Dose: 5 mg Atorvastatin Calcium (Lipitor) 40 mg PO QPM [facility] Last Admin: 01/30/20 20:47 Dose: 40 mg Ceftriaxone Sodium (Rocephin) 1 gm IVP DAILY [facility] Last Admin: 01/30/20 08:32 Dose: 1 gm Re-Assess: IV Stop Time Document 01/30/20 09:02 ECA (Rec: 01/30/20 10:48 ECA [id number]) Stop IV Stop Time 09:02 Clopidogrel Bisulfate (Plavix) 75 mg PO DAILY [facility] Last Admin: 01/30/20 08:30 Dose: 75 mg Furosemide (Lasix Inj 40 Mg Vial) 40 mg IVP DAILY [facility] Last Admin: 01/30/20 08:31 Dose: 40 mg Doxycycline Hyclate 100 mg/ (Sodium Chloride) 100 mls @ 100 mls/hr IV BID [facility] Last Admin: 01/30/20 20:47 Dose: 100 mls/hr Medication Titration Document 01/30/20 20:47 LGS (Rec: 01/30/20 20:50 LGS [id number]) Titration Intake Container Volume 100 Elapsed Time 4h 13m Titration Dosing IV Rate 100 Increase/Decrease Started/Running Cumulative Dose 400 Total Intake (Rx) 400 Volume Adjustment/Waste 0 Heparin Sodium/Dextrose () 25,000 unit in 500 mls @ 15 mls/hr IV .[id number] [facility]; Protocol Last Admin: 01/30/20 07:18 Dose: 16 unit/kg/hr, 19.36 mls/hr Heparin Cosign Document 01/30/20 07:18 ECA (Rec: 01/30/20 07:19 ECA [id number]) Cosign Dose Verification Cosign Required by 2 RN's Medication Titration Document 01/30/20 07:18 ECA (Rec: 01/30/20 07:19 ECA [id number]) Titration Intake Container Volume 500 Elapsed Time 30h 29m Titration Dosing Titration Dose 16 IV Rate 19.36 Increase/Decrease Started/Running Cumulative Dose 25924 Total Intake (Rx) 500 Volume Adjustment/Waste 0 Lisinopril (Zestril) 20 mg PO DAILY [facility] Last Admin: 01/30/20 08:30 Dose: 20 mg Metoprolol Succinate (Toprol Xl) 50 mg PO DAILY [facility] Last Admin: 01/30/20 08:31 Dose: 50 mg Morphine Sulfate (Morphine (Carpuject)) 2 mg IVP Q2HR PRN PRN Reason: Pain 8 to 10 Last Admin: 01/28/20 19:03 Dose: 2 mg Re-Assess: Pain Reassessment Document 01/28/20 19:33 LGS (Rec: 01/28/20 21:30 LGS [id number]) Reassessment Effective/Ineffective Effective Oxycodone HCl (Roxicodone) 5 mg PO Q4HR PRN PRN Reason: PAIN Last Admin: 01/30/20 20:55 Dose: 5 mg Pain Assessment Document 01/30/20 20:55 LGS (Rec: 01/30/20 20:56 LGS [id number]) Pain Level Pain Scale Used 0-10 Intensity (0-10) 7 Pantoprazole Sodium (Protonix) 40 mg PO QDAC [facility] Last Admin: 01/30/20 07:18 Dose: 40 mg Polyethylene Glycol (Miralax) 17 gm PO DAILY [facility] Last Admin: 01/30/20 08:31 Dose: 17 gm Bowel - Constipation Care Document 01/30/20 08:31 ECA (Rec: 01/30/20 08:32 ECA [id number]) Constipation Defined As: Current Step Protocol: PCS.BPI Protocol Protocol A Protocol A Daily Polyethylene glycol ( Miralax) 17 grams daily. Prednisone (Deltasone) 5 mg PO DAILYWM [facility] Last Admin: 01/30/20 08:30 Dose: 5 mg Sodium Chloride (Normal Saline Flush 0.9%) 10 ml IVP 0100,0900,1700 [facility] Last Admin: 01/30/20 20:46 Dose: 10 ml Discontinued Medications Aspirin (St Anup Aspirin) 324 mg PO ONCE STA Stop: 01/28/20 20:22 Last Admin: 01/28/20 21:53 Dose: 324 mg Ceftriaxone Sodium (Rocephin) 1 gm IVP ONCE STA Stop: 01/28/20 18:00 Last Admin: 01/28/20 18:23 Dose: 1 gm Clopidogrel Bisulfate (Plavix) 75 mg PO ONCE STA Stop: 01/28/20 18:04 Last Admin: 01/28/20 18:23 Dose: 75 mg Clopidogrel Bisulfate (Plavix) 75 mg PO DAILY [facility] Last Admin: 01/29/20 08:38 Dose: 75 mg Furosemide (Lasix Inj 20mg Vial) 20 mg IVP ONCE STA Stop: 01/28/20 17:49 Last Admin: 01/28/20 18:22 Dose: 20 mg Heparin Sodium (Porcine) () 3,050 unit 50 unit/kg (3050 unit) IVP ONCE ONE Stop: 01/28/20 21:09 Last Admin: 01/28/20 22:11 Dose: 3,050 unit Azithromycin 500 mg/ Sodium (Chloride) 250 mls @ 250 mls/hr IV ONCE STA Stop: 01/28/20 18:58 Last Admin: 01/28/20 18:22 Dose: 250 mls/hr Medication Titration Document 01/28/20 18:22 TW (Rec: 01/28/20 18:23 TW [id number]) Titration Intake Container Volume 250 Elapsed Time 0m Titration Dosing IV Rate 250 Increase/Decrease Started Volume Adjustment/Waste 0 Potassium Chloride (Potassium Chloride) 10 meq in 100 mls @ 100 mls/hr IV Q1H [facility] Last Admin: 01/29/20 00:22 Dose: Not Given Non-Admin Reason: Given by Another Provider Potassium Chloride (Potassium Chloride) 10 meq in 100 mls @ 100 mls/hr IV Q1H [facility] Stop: 01/29/20 03:59 Last Admin: 01/29/20 03:04 Dose: Not Given Non-Admin Reason: per MD request, see previous note Metoprolol Tartrate (Lopressor Inj) 5 mg IVP Q6HR [facility] Last Admin: 01/29/20 06:25 Dose: Not Given Non-Admin Reason: per MD, will change order to p.o. Morphine Sulfate (Morphine (Carpuject)) 4 mg IVP ONCE STA Stop: 01/28/20 15:51 Last Admin: 01/28/20 16:45 Dose: 2 mg Re-Assess: Pain Reassessment Document 01/28/20 17:15 TW (Rec: 01/28/20 19:01 TW [id number]) Reassessment Pain Scale Used 0-10 Pain Intensity (0-10) 9 Effective/Ineffective Ineffective Ondansetron HCl (Zofran Inj) 4 mg IVP ONCE STA Stop: 01/28/20 15:51 Last Admin: 01/28/20 16:46 Dose: 4 mg Potassium Chloride (K-Dur) 40 meq PO ONCE ONE; Protocol Stop: 01/29/20 08:01 Last Admin: 01/29/20 08:40 Dose: 40 meq Sterile Water (Sterile Water) 10 ml MC ONCE ONE Stop: 01/28/20 18:00 Last Admin: 01/28/20 18:23 Dose: 10 ml Objective - Vital Signs/Intake & Output Reviewed Vital Signs: Yes Vital Signs: Vital Signs x48h Temp Pulse Resp BP Pulse Ox 01/30/20 20:41 36.7 C 86 18 149/92 H 97 01/30/20 15:45 36.7 C 88 18 145/96 H 95 Intake & Output: Intake & Output 01/27/20 01/28/20 01/29/20 01/30/20 23:59 23:59 23:59 23:59 Intake Total 200 3118.726 3894.459 Output Total 525 2150 1950 Balance -325 -265.459 -846.541 - Objective General Appearance: positive: No acute distress Eyes Bilateral: positive: Normal inspection ENT: positive: ENT inspection nml Neck: positive: Nml inspection Respiratory: positive: Chest non-tender Cardiovascular: positive: Regular rate & rhythm Abdomen: positive: Non-tender, No organomegaly, Nml bowel sounds, No distention Skin: positive: Color nml Extremities: positive: Non-tender, Full ROM Neurologic/Psychiatric: positive: Mood/affect nml, Disoriented to time. negative: Disoriented to person, Disoriented to place, Facial droop - Lab Results Fish Bones: 01/30/20 04:40 01/30/20 04:40 Other Labs: Lab Results x24hrs 01/30/20 01/30/20 01/30/20 Range/Units 10:40 04:40 04:40 WBC (4.8-10.8) x10^3/uL RBC (4.20-5.40) 10^6/uL Hgb (12.0-16.0) g/dL Hct (37.0-47.0) % MCV (81.0-99.0) fL MCH (27.0-31.0) pg MCHC (32.0-36.0) g/dL RDW (12.0-15.0) % Plt Count (130-450) 10^3/uL MPV (7.9-10.8) fL Neut # (Auto) (1.5-6.6) 10^3/uL Lymph # (Auto) (1.5-3.5) 10^3/uL [place] # (Auto) (0.0-1.0) 10^3/uL Eos # (Auto) (0.0-0.7) 10^3/uL Baso # (Auto) (0.0-0.1) 10^3/uL Absolute Nucleated RBC x10^3/uL Nucleated RBC % /100WBC Anti-Xa Level 0.4 0.4 ( - 0.7) U/mL Sodium (135-145) mmol/L Potassium (3.5-5.0) mmol/L Chloride (101-111) mmol/L Carbon Dioxide (21-32) mmol/L Anion Gap (6-13) BUN (6-20) mg/dL Creatinine (0.4-1.0) mg/dL Estimated GFR (MDRD) (>89) Glucose (70-100) mg/dL Calcium (8.5-10.3) mg/dL Total Bilirubin (0.2-1.0) mg/dL AST (10-42) IU/L ALT (10-60) IU/L Alkaline Phosphatase (42-121) IU/L B-Natriuretic Peptide 593 H (5-100) pg/mL Total Protein (6.7-8.2) g/dL Albumin (3.2-5.5) g/dL Globulin (2.1-4.2) g/dL Albumin/Globulin Ratio (1.0-2.2) Coronavirus (PCR) 01/30/20 01/30/20 01/29/20 Range/Units 04:40 04:40 21:45 WBC 5.0 (4.8-10.8) x10^3/uL RBC 4.00 L (4.20-5.40) 10^6/uL Hgb 14.1 (12.0-16.0) g/dL Hct 42.5 (37.0-47.0) % MCV 106.3 H (81.0-99.0) fL MCH 35.3 H (27.0-31.0) pg MCHC 33.2 (32.0-36.0) g/dL RDW 15.4 H (12.0-15.0) % Plt Count 151 (130-450) 10^3/uL MPV 9.6 (7.9-10.8) fL Neut # (Auto) 3.2 (1.5-6.6) 10^3/uL Lymph # (Auto) 1.0 L (1.5-3.5) 10^3/uL [place] # (Auto) 0.7 (0.0-1.0) 10^3/uL Eos # (Auto) 0.1 (0.0-0.7) 10^3/uL Baso # (Auto) 0.0 (0.0-0.1) 10^3/uL Absolute Nucleated RBC 0.00 x10^3/uL Nucleated RBC % 0.0 /100WBC Anti-Xa Level 0.2 ( - 0.7) U/mL Sodium 133 L (135-145) mmol/L Potassium 3.8 (3.5-5.0) mmol/L Chloride 97 L (101-111) mmol/L Carbon Dioxide 28 (21-32) mmol/L Anion Gap 8.0 (6-13) BUN 18 (6-20) mg/dL Creatinine 0.8 (0.4-1.0) mg/dL Estimated GFR (MDRD) 69 L (>89) Glucose 121 H (70-100) mg/dL Calcium 8.3 L (8.5-10.3) mg/dL Total Bilirubin 1.9 H (0.2-1.0) mg/dL AST 22 (10-42) IU/L ALT 17 (10-60) IU/L Alkaline Phosphatase 95 (42-121) IU/L B-Natriuretic Peptide (5-100) pg/mL Total Protein 6.0 L (6.7-8.2) g/dL Albumin 3.3 (3.2-5.5) g/dL Globulin 2.7 (2.1-4.2) g/dL Albumin/Globulin Ratio 1.2 (1.0-2.2) Coronavirus (PCR) 04/04/20 Range/Units 19:40 WBC (4.8-10.8) x10^3/uL RBC (4.20-5.40) 10^6/uL Hgb (12.0-16.0) g/dL Hct (37.0-47.0) % MCV (81.0-99.0) fL MCH (27.0-31.0) pg MCHC (32.0-36.0) g/dL RDW (12.0-15.0) % Plt Count (130-450) 10^3/uL MPV (7.9-10.8) fL Neut # (Auto) (1.5-6.6) 10^3/uL Lymph # (Auto) (1.5-3.5) 10^3/uL [place] # (Auto) (0.0-1.0) 10^3/uL Eos # (Auto) (0.0-0.7) 10^3/uL Baso # (Auto) (0.0-0.1) 10^3/uL Absolute Nucleated RBC x10^3/uL Nucleated RBC % /100WBC Anti-Xa Level ( - 0.7) U/mL Sodium (135-145) mmol/L Potassium (3.5-5.0) mmol/L Chloride (101-111) mmol/L Carbon Dioxide (21-32) mmol/L Anion Gap (6-13) BUN (6-20) mg/dL Creatinine (0.4-1.0) mg/dL Estimated GFR (MDRD) (>89) Glucose (70-100) mg/dL Calcium (8.5-10.3) mg/dL Total Bilirubin (0.2-1.0) mg/dL AST (10-42) IU/L ALT (10-60) IU/L Alkaline Phosphatase (42-121) IU/L B-Natriuretic Peptide (5-100) pg/mL Total Protein (6.7-8.2) g/dL Albumin (3.2-5.5) g/dL Globulin (2.1-4.2) g/dL Albumin/Globulin Ratio (1.0-2.2) Coronavirus (PCR) NEGATIVE Assessment/Plan - Problem List (1) NSTEMI (non-ST elevated myocardial infarction) Impression: No chest pain. No recent EKG changes. Trop elevated. Cont heparin x 24 hours and d/c tonight. Echo is pending. If no reversible ischemia, can likely d/c in 1-2 days. (2) Acute kidney injury Impression: Resolved (3) Acute respiratory failure with hypoxia Impression: Improved. On minimal O2. Transition to oral abx tomorrow. COvid Negative (4) Burst fracture of thoracic vertebra Impression: Non operative. Pain control with oral meds Qualifiers: Encounter type: initial encounter (5) Community acquired pneumonia Impression: As above, cont abx, change to PO in am (6) Hypertension Impression: stable. Cont current meds Qualifiers: Hypertension type: essential hypertension Qualified Code(s): I10 - Essential (primary) hypertension
[2020-01-31] MEDS: SODIUM CHLORIDE FLUSH 0.9% 10 ML SYRINGE IVP SCH ×3 (01:06→16:06)
[2020-01-31] MEDS ORDERED: ROPIVACAINE 0.2% 0 MG/0 ML BAG EP ONE (04:10)
[2020-01-31 05:05] LABS: BASOPHILS % (AUTO) 0.5 %; EOSINOPHILS # (AUTO) 0.1 10^3/uL (0.0-0.7); EOSINOPHILS % (AUTO) 1.4 %; HGB - HEMOGLOBIN 14.5 g/dL (12.0-16.0); LYMPHOCYTES % (AUTO) 16.9 %; MEAN CORPUSCULAR HEMOGLOBIN 35.4 pg (27.0-31.0); MEAN CORPUSCULAR HGB CONC 33.8 g/dL (32.0-36.0); MEAN CORPUSCULAR VOLUME 104.6 fL (81.0-99.0); MEAN PLATELET VOLUME 9.4 fL (7.9-10.8); MONOCYTES # (AUTO) 0.7 10^3/uL (0.0-1.0); MONOCYTES % (AUTO) 13.1 %; NEUTROPHILS # (AUTO) 3.8 10^3/uL (1.5-6.6); NEUTROPHILS % (AUTO) 67.2 %; PLT - PLATELET COUNT 161 10^3/uL (130-450); RED CELL DISTRIBUTION WIDTH 15.2 % (12.0-15.0); WHITE BLOOD COUNT 5.6 x10^3/uL (4.8-10.8)
[2020-01-31 05:13] LABS: ALBUMIN 3.3 g/dL (3.2-5.5); ALBUMIN/GLOBULIN RATIO 1.2 (1.0-2.2); BILIRUBIN,TOTAL 2.1 mg/dL (0.2-1.0); CALCIUM 8.4 mg/dL (8.5-10.3); CREATININE 0.7 mg/dL (0.4-1.0); TOTAL PROTEIN 6.1 g/dL (6.7-8.2)
[2020-01-31] MEDS: PANTOPRAZOLE 40 MG TABLET PO SCH (06:02)
[2020-01-31] MEDS: oxyCODONE 5 MG TABLET PO PRN ×3 (06:11→17:21)
[2020-01-31] MEDS: FUROSEMIDE 40 MG/4 ML VIAL IVP SCH ×2 (08:35→08:36)
[2020-01-31] MEDS: METOPROLOL SUCCINATE 25 MG TABLET PO SCH (08:36)
[2020-01-31] MEDS: predniSONE 5 MG TABLET PO SCH (08:36)
[2020-01-31] MEDS: lisinopriL 20 MG TABLET PO SCH (08:36)
[2020-01-31] MEDS: cefTRIAXone 1 GM VIAL IVP SCH (08:36)
[2020-01-31] MEDS: amLODIPine 5 MG TABLET PO SCH (08:37)
[2020-01-31] MEDS: polyethylene glycoL 3350 17 GM PACKET PO SCH (08:37)
[2020-01-31] MEDS: CLOPIDOGREL 75 MG TABLET PO SCH (08:37)
[2020-01-31] MEDS ORDERED: POTASSIUM CHLORIDE 20 MEQ TABLET PO ONE (09:14)
[2020-01-31] MEDS: DOXYCYCLINE INJ 100 MG in SODIUM CHLORIDE 0.9% MINIBAG 100 ML IV SCH (11:03)
[2020-01-31] MEDS ORDERED: ACETAMINOPHEN 325 MG TABLET PO PRN (11:48)
[2020-01-31] MEDS ORDERED: LIDOCAINE PATCH 5% TOP PRN (12:30)
--- NOTE | 2020-01-31 15:51 | Discharge Plan ---
Discharge Plan Problem Reviewed?: Yes Disposition: Home, Self Care Condition: Stable Prescriptions: oxyCODONE [Roxicodone] 5 mg PO Q3HR PRN #20 tablet PRN Reason: Pain Cefpodoxime Proxetil [Vantin] 200 mg PO Q12H 3 Days #6 tablet Doxycycline Monohydrate 100 mg PO BID 3 Days #6 tablet Lidocaine Patch 5% [Lidoderm Patch] 1 patch TOP DAILY PRN #30 patch PRN Reason: Pain Diet: Cardiac Activity Restrictions: Activity as Tolerated Shower Restrictions: No Driving Restrictions: Yes (Don't drive while taking pain killers) Weight Bearing: Full Weight Plan of Treatment: Continue your antibiotics, and try to stay as mobile as possible while your back injury heals. You can use the pain medications as necessary to help control your pain, as well as tylenol over the counter. I would not advise ibuprofen because you're on plavix. Additional Instructions or Follow Up instructions: Follow up by phone with your PCP in 1 week. No Smoking: If you smoke, Please STOP! Call for help. Follow-up with: Josephine Martell ARNP [Primary Care Provider] -
[2020-01-31 17:16] VITALS: BP 165/89
--- NOTE | 2020-02-01 17:12 | DISCHARGE SUMMARY ---
Discharge Summary Admit Date: 01/28/20 Discharge Date: 01/31/20 Discharging Provider: Mark Desir MD Primary Care Provider: Josephine Martell Code Status: Attempt Resuscitation Condition at Discharge: Stable Discharge Disposition: 01 Home, Self Care - DIAGNOSES Admission Diagnoses: Acute respiratory failure with hypoxia NSTEMI TIA Stable burst fracture of thoracic vertebrae Acute kidney injury Hyponatremia Hypertension Discharge Diagnoses with Status of Each Condition: Acute respiratory failure with hypoxiaresolved NSTEMIstable TIAresolved - HPI History of Present Illness: This is a 84-year-old female with a past medical history significant for 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 This afternoon she was watching TV when her son noticed she appeared uncomfortable. He asked her a question and she was unable to answer. He immediately called EMS and upon their arrival, she had return back to her baseline. She reports having a stroke in the past. She did receive TPA back in March when she admitted at [facility] in [place]. She does not have a history of A. fib and is not on any anticoagulation. She w as previously on aspirin and Plavix but is now only taking baby aspirin. She states she not take any of her medications today. In the emergency room, she was noted to be hypoxic and she was placed on oxygen. Patient denies feeling dyspneic and reports no cough, fever, chills. She denies any recent sick contacts. She reports her lower extremities are always edematous and they are not more swollen than usual. I did speak with her son who stated that she had been feeling short of breath for over a month now. The patient is also complaining of back pain. She was recently prescribed hydrocodone for a compression fracture. Reports no prior cardiac history. She does have a history of hypertension for which takes metoprolol and lisinopril. She currently reports no chest pain. In the emergency department, she was found to be hypoxic and was placed on 4 L of oxygen via nasal cannula. Blood gas was obtained which showed a PO2 of 53 despite 6 L of oxygen. She was then placed on a nonrebreather at 15 L a minute. A repeat blood gas was obtained which showed a PO2 of 44 but her oxygenation was 80% and suspect this may have been a venous blood gas or mixed. She underwent a CT of the head which did not show any acute abnormalities. Chest x- ray showed a large hiatal hernia with left lower lobe atelectasis. Underwent a CT of the chest without contrast which showed lower lobe fibrotic changes with faint groundglass opacities and bronchiectasis as well as peripheral consolidation in the right middle lobe. 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 A CT of the lumbar spine showed a T11 burst fracture with a 4 mm retropulsion of the posterior cortex into the central canal. EKG shows sinus rhythm with flattening of T waves in leads V2 through V6 which are new. Her QT is also prolonged. I did discuss goals of care with both the patient and her son, Alek. The patient states that she is a DNR. She has a POLST form which states she is a DNR and DNI. After discussion with her son, the patient is agreeable to intubation as long as it is short-term. She would not want prolonged mechanical ventilation or tracheostomy. I did discuss with both her and her son given her current condition and her age, is difficult to say what her prognosis would be but the concern would be prolonged mechanical ventilation with difficulty liberating her from the ventilator. They do understand this and would still like to proceed with intubation if necessary. She is a DNR and does not want CPR. - HOSPITAL COURSE Hospital Course: After admission patient spent the night in ICU due to respiratory distress however she rapidly improved and was on a regular medical floor by the following day. She was able to wean off oxygen and the coronavirus testing came back negative. Because she was off oxygen, her labs were relatively normal, her vital signs are stable, she was discharged home in stable medical condition with prescriptions for antibiotics. Also, she was treated for a total of 48 hours with IV heparin due to the NSTEMI, and was discharged home with Plavix. Due to the thoracic spine burst fracture seen on admission, she was given prescription for pain medications as below, and due to the current coronavirus epidemic will unlikely be able to have outpatient physical therapy so she will have home health physical therapy as well as home health social work. - ALLERGIES Allergies/Adverse Reactions: Allergies Allergy/AdvReac Type Severity Reaction Status Date / Time No Known Drug Allergies Allergy Verified 01/28/20 15:50 - MEDICATIONS Home Medications: Ambulatory Orders Medication Instructions Recorded Confirmed Calcium Carbonate/Vitamin D3 1 cap PO DAILY 06/01/17 01/29/20 [Calcium 600-Vit D3 500 Softgel] Metoprolol Tartrate 25 mg PO BID 06/01/17 01/29/20 Quinapril HCl 20 mg PO DAILY 06/01/17 01/29/20 Atorvastatin Calcium 40 mg PO DAILY 11/01/18 01/29/20 Aspirin Chewable [St Anup 81 mg PO DAILY 02/15/19 01/29/20 Aspirin] predniSONE [Prednisone] 10 mg PO DAILY 12/06/19 01/29/20 Hydrochlorothiazide 12.5 mg PO DAILY 01/02/20 01/29/20 Calcitonin,[place],Synthetic 1 spr KAYLA DAILY 01/29/20 01/29/20 [Calcitonin-[place]] Ferrous Sulfate 325 mg PO DAILY 01/29/20 01/29/20 Hydrocodone/Acetaminophen 1 tab PO BID PRN 01/29/20 01/29/20 [Hydrocodone-Acetamin 5-325 mg] Multivitamin [Theragran] 1 each PO DAILY 01/29/20 01/29/20 Cefpodoxime Proxetil [Vantin] 200 mg PO Q12H 3 Days #6 tablet 01/31/20 Doxycycline Monohydrate 100 mg PO BID 3 Days #6 tablet 01/31/20 Lidocaine Patch 5% [Lidoderm Patch] 1 patch TOP DAILY PRN #30 patch 01/31/20 oxyCODONE [Roxicodone] 5 mg PO Q3HR PRN #20 tablet 01/31/20 Clopidogrel [Plavix] 75 mg PO DAILY #30 tablet 02/01/20 - PHYSICAL EXAM AT DISCHARGE General Appearance: positive: No acute distress Eyes Bilateral: positive: Normal inspection Neck: positive: Nml inspection Respiratory: positive: Chest non-tender, No respiratory distress Cardiovascular: positive: Regular rate & rhythm, No murmur, No gallop Abdomen: positive: Non-tender, No organomegaly, Nml bowel sounds Skin: positive: Color nml, No rash Extremities: positive: Non-tender Neurologic/Psychiatric: positive: Oriented x3, CN's nml (2-12) - LABS Result Diagrams: 01/31/20 04:50 01/31/20 04:50 - FOLLOW UP Follow Up: With PCP via telephone in 1 week - TIME SPENT Time Spent in Discharge (Minutes): 46
== END 2020-01-31 17:54 | disposition home or self-care (01) | DRG 280 ==
LOC: EDUNIT# → ED 15:27 → MS2 18:18 → ICU 01-29 00:06 → MS2 01-29 14:30
PROVIDERS: ADMIT Nurse Practitioner Gerontology; ATTEND Family Medicine Sports Medicine
DX: I21.4 Non-ST elevation (NSTEMI) myocardial infarction (principal); J96.01 Acute respiratory failure with hypoxia; R09.02 Hypoxemia; S32.050A Wedge compression fracture of fifth lumbar vertebra, initial encounter for closed fracture; I50.9 Heart failure, unspecified; I11.0 Hypertensive heart disease with heart failure; J18.9 Pneumonia, unspecified organism; S22.081A Stable burst fracture of T11-T12 vertebra, initial encounter for closed fracture; G45.9 Transient cerebral ischemic attack, unspecified; N17.9 Acute kidney failure, unspecified; R29.701 NIHSS score 1; E87.1 Hypo-osmolality and hyponatremia; D59.1 Other autoimmune hemolytic anemias; J84.10 Pulmonary fibrosis, unspecified; M06.9 Rheumatoid arthritis, unspecified; K21.9 Gastro-esophageal reflux disease without esophagitis; H54.7 Unspecified visual loss; I10 Essential (primary) hypertension; K44.9 Diaphragmatic hernia without obstruction or gangrene; Z66 Do not resuscitate; E78.00 Pure hypercholesterolemia, unspecified; X58.XXXA Exposure to other specified factors, initial encounter; Z79.82 Long term (current) use of aspirin; Z79.52 Long term (current) use of systemic steroids; Z86.73 Personal history of transient ischemic attack (TIA), and cerebral infarction without residual deficits; Z86.79 Personal history of other diseases of the circulatory system
CPT/HCPCS: 36415; 36600; 70450; 71250; 72131; 80053; 81001; 81599; 82330; 82803; 83690; 83735; 83880; 84100; 84484; 85025; 85379; 85520; 85610; 85730; 87150; 93005; 93306; 93880; 93970; 96374; 96375; 97161; 99284; 99285; A9270; J7512

== ENCOUNTER 2020-02-27 14:30 | Outpatient (CLI) | payer MEDICARE, OTHER ==
--- NOTE | 2020-02-27 17:19 | CONSULTATION NOTE ---
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 She continues currently on prednisone 5 mg. She does have longstanding history of hypertension, hyperlipidemia, and has known stroke 03/2019 where she was treated at [place]. She did present on 01 27 with symptoms of a TIA, expressive aphasia which did resolve. She was though found to have acute respiratory failure with hypoxia, she did rule out COVID, and end STEMI, and stable burst fracture of the thoracic vertebrae. She had been making some progress, when she presented with what sounds like a recurrent stroke. She has had significant weakness, but this was more pronounced left- sided, she presents today with some left-sided neglect, and visual field cut, and has had functional decline over the last week. Unfortunately is really result of this she also sustained a severe skin tear on her right forearm, some increased difficulty with swallowing she is currently on Thick-It, but does seem to be improved over the last couple days per both sons report. Patient is on aspirin and Plavix, she does have significant bruising on her upper extremities. She presents with lower extremity edema left greater than right, pitting in nature up to knees. I can see home health records, she does have significant bruising as well at stage II decub on her coccyx, which does appear to be causing her some discomfort. Her pain is still persistent in her upper back, currently being managed with hydrocodone 5 mg / 325 mg one half tab twice a day. Her family reports her confusion is improved, she is able to engage in conversation today. Palliative care meeting with patient and family, to define goals of care, and address symptom management. Patient has had some anorexia decreased intake, but on examination has fairly severe oral candidiasis. She continues with persistent fatigue mild shortness of breath, underlying anxiety, and perceives her quality of life as decreased. She is quite thankful her sons are providing increased support and care, Rocio is providing 24 7 care, Alek is coming in giving some relief was here over the weekend. Medical/Surgical History - Past Medical History Cardiovascular: reports: Hypertension, High cholesterol, [place] (NSTEMI 01/28/2020) Respiratory: reports: Pneumonia (dx on 01/27 [facility] visit), Shortness of breath Neuro: CVA, TIA Endocrine/Autoimmune: reports: Other (autoimmune hemolytic anemia) GI: reports: GERD, Cholelithiasis : reports: Incontinence HEENT: reports: Chronic vision loss Psych: reports: Depression, Anxiety Musculoskeletal: reports: Rheumatoid arthritis, Chronic back pain, Other (burst fx thoracic) Derm: reports: Other (skin tear RUE and decub coccyx) MRSA Hx?: No - Past Surgical History /COPS: reports: Hysterectomy, Oophrectomy HEENT: reports: Cataracts, Tonsil/Adenoidectomy - Substance History Use: Uses substance without health or social issues: Alcohol (currently not drinking;) Social History - Living Situation Living arrangement: At home Living Situation: With family (son Rocio lives with patient) Support System: Patient has a son Virgil who lives with her, is providing the majority of the caregiving. Her son Alek who is a high school computer science teacher, lives 3 hours away, is her DPOAE, and does provide ongoing support for financial affairs as well as medical decision making. She has a daughter Grace who lives in [facility], and another daughter who is not been involved in her care. She had been independent prior to her stroke several weeks ago, though have been declining functionally. 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 She has been long-term and community, but unfortunately unable to connect with friends with COVID-19 restrictions. Family History - Family History Family History: Mother: (copd/kidney in 90s), CVA/TIA ( in early 80s), Father: , Brother: , Diabetes, Type 2, Renal Dis ease/Failure Medications/Allergies - Medications Home Medications: Ambulatory Orders Medication Instructions Recorded Confirmed Calcium Carbonate/Vitamin D3 1 cap PO DAILY 06/01/17 02/27/20 [Calcium 600-Vit D3 500 Softgel] Metoprolol Tartrate 25 mg PO BID 06/01/17 02/27/20 Quinapril HCl 20 mg PO DAILY 06/01/17 02/27/20 Atorvastatin Calcium 40 mg PO DAILY 11/01/18 02/27/20 Aspirin Chewable [St [place]up 81 mg PO DAILY 02/15/19 02/27/20 Aspirin] predniSONE [Prednisone] 5 mg PO DAILY 12/06/19 02/27/20 Hydrochlorothiazide 12.5 mg PO DAILY 01/02/20 02/27/20 Calcitonin,Shorter,Synthetic 1 spr KAYLA DAILY 01/29/20 02/27/20 [Calcitonin-Shorter] Ferrous Sulfate 325 mg PO DAILY 01/29/20 02/27/20 Hydrocodone/Acetaminophen 0.5 - 1 tab PO BID PRN 01/29/20 02/27/20 [Hydrocodone-Acetamin 5-325 mg] Multivitamin [Theragran] 1 each PO DAILY 01/29/20 02/27/20 Lidocaine Patch 5% [Lidoderm Patch] 1 patch TOP DAILY PRN #30 patch 01/31/20 02/27/20 Clopidogrel [Plavix] 75 mg PO DAILY #30 tablet 02/01/20 02/27/20 Nystatin 5 ml PO QID MDD 14 days 02/27/20 02/27/20 - Allergies Allergies/Adverse Reactions: Allergies Allergy/AdvReac Type Severity Reaction Status Date / Time No Known Drug Allergies Allergy Verified 01/28/20 15:50 Review of Systems - Constitutional Constitutional: reports: Fatigue (severe), Weakness, Poor appetite. denies: Fever, Chills - Eyes Eyes: reports: Vision loss, Other (left field cut/) - Ears, Nose & Throat Ears, Nose & Throat: reports: Hearing loss, Mouth lesions, Dry mouth - Cardiovascular Cardiovascular: reports: Edema, Decr. exercise tolerance - Respiratory Respiratory: denies: Cough, SOB at rest - Gastrointestinal Gastrointestinal: reports: Early satiety, Other (using thick it for water). denies: Constipation - Genitourinary Genitourinary: reports: Incontinence - Musculoskeletal Musculoskeletal: reports: Muscle pain, Back pain, Muscle aches, Stiffness, Limited range of motion, Muscle weakness, Joint pain, Transfer issues - Integumentary Integumentary: reports: Dryness, Other (bruising/skin tear) - Neurological Neurological: reports: General weakness, Memory problems - Psychiatric Psychiatric: reports: Depression, Anxiety - Hematologic/Lymphatic Hematologic/Lymphatic: reports: Anemia, Recurrent infections (recent tx pneumonia) Physical Exam - Vital Signs Temperature: 96.7 C Pulse Rate: 83 Respiratory Rate: 18 O2 Saturation: 95 (ra @ rest) Blood Pressure: 112/62 - Physical Exam General Appearance: positive: Alert, Mild distress, Anxious Eyes Bilateral: positive: Other (mild periorbital edema) ENT: positive: Other (tongue with white patches; scattered buccal areas; erythema of kim) Neck: positive: Trachea midline Cardiovascular: positive: Regular rate & rhythm Respiratory: positive: Diminished in bases. negative: Wheezes, Rales, Rhonchi Abdomen: positive: Non-tender, Soft, Nml bowel sounds Skin: positive: Pallor, Bruising, Wound (Right lower forearm), Pressure wound (coccyx) Extremities: positive: Pedal edema (left doughy in ankle 2+; right 1+) Neurologic/Psychiatric: positive: Disoriented to time, Weakness, Depressed mood/affect, Flat affect, Other (Left sided neglect/visual field cut). negative: Facial droop Palliative Care - POLST Patient has POLST: Yes POLST Status: DNR, Selective Treatment (POLST completed at visit) Pain: Pain unchanged, Location (coccyx sharp and uncomfortable; back pain mid thoracic area worsens with movement/transfers;) Tiredness/Fatigue: Severe (7-10) Drowsiness/Sedation: None Nausea: None Anorexia: Severe (7-10) Dyspnea: Moderate (4-6) Depression: None Anxiety: Mild (1-3) Feelings of wellbeing/Perceived Quality of Life: Poor, Acceptable, Worsening Sleep: Variable sleep pattern Constipation: Yes, Opoid induced, Intermittent constipation Performance Status: Patient previous to original hospitalization 01/27 was ambulatory, independent in her own ADLs, her son did assist with meal prep and driving. Follow-up with PT, patient actually was ambulatory also with her walker prior to her stroke which most likely happened somewhere around the weekend of 02/10. Patient currently now only a pivot transfer, needs help with toileting, dressing, Feeding, does to the right, is just now starting to bring gaze around to the left if instructed. Left arm is quite weak as well as left leg, but able to move on command. Physical therapy says patient's balance is quite compromised, and unable to move forward or direct her left side for ambulation at this point in time. - Palliative Care Discussion: When asked patient what she worries about most, she reports "everyone safety". She is alluding to the COVID-19 virus, they have been comfortable though with staff coming in. She is also worried about "when the next one is going to hit", when discussing her most recent stroke and recent decline. It is unclear how much insight she has into her deficits, and the implications regarding this.When asked Rocio and Alek, if they felt this was sustainable, they were not sure. We did locate the [facility] for healthcare, and it did have Alek Lindy as first choice. Patient did not have a POLST, she had just a directive, we discussed in the context of her current condition, DNR/DNI was appropriate, She would at this point in time still consider going to the hospital and treating reversible conditions. If she were to be more dependent though are worsening, she would not want her suffering prolonged and would like to have a at home. She was clear at this point she would accept antibiotics, but no medically assisted nutrition. POLST was completed and put on refrigerator. Current goals are yet to be defined, as patient has not most likely return to prior level of functioning, unclear how much she will improve. At this point in time she would not be able to transfer or tolerate an appointment out. We did discuss in the context of her follow-up with oncology, I would reach out regarding next steps. Results - Lab Results Lab results reviewed: Yes Impression and Recommendations - Palliative Care Impression: This is an 84-year-old woman who presents with left-sided neglect, left hemiplegia as a result of new stroke. She did not have this worked up, the severity of the sequela are starting to improve. Goals at this point in time are to focus on quality of life, improving functional status, and identifying long-term caregiving plan. Palliative care providing support for advanced care planning, and anticipatory guidance. Recommendations/Counseling Done: 1.Stroke, left-sided neglect and hemiplegia. Patient has had some mild recovery per son's report. She does have fairly severe deficits, will reorder OT and speech for swallowing. Given the severity on exam today, concerned patient to be able to return to functional ambulation. We will continue to follow for patient's "new normal.". 2. Stage II coccyx wound. Patient currently sleeping in recliner, picture examined with significant bruising around her coccyx, skin frail, high risk for further breakdown. Patient unable to offload for pressure relief. They do have a hospital bed, instructed to set up, and for pressure relief measures. They report it has a pressure relief mattress on it. Will also help with transfers given her difficulty following directions at this point in time, will make it easier for commode transfers. 3. Oral candidiasis. Patient has had some mild dysphasia, is using Thick-It, may actually not need this. Will have speech evaluate, but will treat oral candidiasis in the meantime with nystatin 100,000 mg per mill 5 mils 4 times daily for 2 weeks. Patient at high risk with both prednisone, immunocompromise, and recent antibiotic use. 4. Right skin tear. Examined photos, home health RN providing dressing changes, no signs or symptoms of infection at this point. Patient has thin papery skin, significant amount of bruising with Plavix/ASA and at high risk for further injury. 5. Thoracic fracture. Patient currently being managed on half tab hydrocodone 5 mg / 325 mg APAP twice daily, patient feels adequate at this point in time, though does significantly impact her ability to participate in transfers and care. She is not in pain at rest. 6. Constipation opioid induced. Instructed to start MiraLAX half To 1 capful if persistent or needs inter-mention. 7. Advanced care planning. Patient has had a decline both with quality of life, and functional status. Family conference with sons and patient, did complete POLST with DNA R/DNI though at this point in time would still treat reversible conditions including returning to the hospital. If she were to be towards end-of-life, patient would like to be at home with hospice. Both sons are familiar with hospice services, and are in agreement with patient's goals Time Spent: 75 minutes with greater than 50% of this done in counseling regarding goals of care, follow-up on recent stroke, coordination of care with home care and oncology.
== END 2020-02-27 14:31 | disposition home or self-care (01) ==
LOC: PC 14:30
PROVIDERS: ATTEND Nurse Practitioner Adult Health
DX: Z51.5 Encounter for palliative care (principal); I69.354 Hemiplegia and hemiparesis following cerebral infarction affecting left non-dominant side; R41.4 Neurologic neglect syndrome; I69.398 Other sequelae of cerebral infarction; L89.152 Pressure ulcer of sacral region, stage 2; B37.0 Candidal stomatitis; R32 Unspecified urinary incontinence; R60.0 Localized edema; R53.83 Other fatigue; K59.03 Drug induced constipation; T40.2X5A Adverse effect of other opioids, initial encounter; S51.811D Laceration without foreign body of right forearm, subsequent encounter; S22.001D Stable burst fracture of unspecified thoracic vertebra, subsequent encounter for fracture with routine healing; R68.81 Early satiety; I10 Essential (primary) hypertension; I25.2 Old myocardial infarction; Z79.899 Other long term (current) drug therapy; Z79.82 Long term (current) use of aspirin; Z79.02 Long term (current) use of antithrombotics/antiplatelets; Z79.52 Long term (current) use of systemic steroids; Z79.891 Long term (current) use of opiate analgesic; Z87.01 Personal history of pneumonia (recurrent); Z66 Do not resuscitate
CPT/HCPCS: 99345

== ENCOUNTER 2020-03-06 08:00 | Outpatient (CLI) | payer MEDICARE, OTHER ==
[2020-03-06 14:53] LABS: BASOPHILS % (AUTO) 0.5 %; EOSINOPHILS % (AUTO) 0.1 %; HGB - HEMOGLOBIN 13.9 g/dL (12.0-16.0); LYMPHOCYTES # (AUTO) 0.6 10^3/uL (1.5-3.5); LYMPHOCYTES % (AUTO) 8.5 %; MEAN CORPUSCULAR HEMOGLOBIN 33.6 pg (27.0-31.0); MEAN CORPUSCULAR HGB CONC 34.4 g/dL (32.0-36.0); MEAN CORPUSCULAR VOLUME 97.6 fL (81.0-99.0); MEAN PLATELET VOLUME 9.8 fL (7.9-10.8); MONOCYTES # (AUTO) 0.5 10^3/uL (0.0-1.0); MONOCYTES % (AUTO) 7.2 %; NEUTROPHILS # (AUTO) 5.9 10^3/uL (1.5-6.6); PLT - PLATELET COUNT 182 10^3/uL (130-450); RED BLOOD COUNT 4.14 10^6/uL (4.20-5.40); RED CELL DISTRIBUTION WIDTH 13.5 % (12.0-15.0); WHITE BLOOD COUNT 7.5 x10^3/uL (4.8-10.8)
[2020-03-06 14:59] LABS: CALCIUM 8.4 mg/dL (8.5-10.3); CREATININE 0.5 mg/dL (0.4-1.0)
== END 2020-03-06 08:01 | disposition home or self-care (01) ==
LOC: LAB.R 08:00
PROVIDERS: ATTEND Internal Medicine
DX: D59.1 Other autoimmune hemolytic anemias (principal)
CPT/HCPCS: 80048; 83615; 85025

== ENCOUNTER 2020-04-17 12:37 | Outpatient (CLI) | payer MEDICARE, OTHER ==
[2020-04-17 13:33] LABS: BASOPHILS % (AUTO) 0.4 %; EOSINOPHILS % (AUTO) 0.2 %; HGB - HEMOGLOBIN 13.5 g/dL (12.0-16.0); LYMPHOCYTES # (AUTO) 0.4 10^3/uL (1.5-3.5); LYMPHOCYTES % (AUTO) 5.2 %; MEAN CORPUSCULAR HEMOGLOBIN 32.5 pg (27.0-31.0); MEAN CORPUSCULAR HGB CONC 32.2 g/dL (32.0-36.0); MEAN CORPUSCULAR VOLUME 100.7 fL (81.0-99.0); MEAN PLATELET VOLUME 9.5 fL (7.9-10.8); MONOCYTES # (AUTO) 0.5 10^3/uL (0.0-1.0); MONOCYTES % (AUTO) 6.5 %; NEUTROPHILS # (AUTO) 7.2 10^3/uL (1.5-6.6); NEUTROPHILS % (AUTO) 86.1 %; PLT - PLATELET COUNT 220 10^3/uL (130-450); RED BLOOD COUNT 4.16 10^6/uL (4.20-5.40); RED CELL DISTRIBUTION WIDTH 14.3 % (12.0-15.0); WHITE BLOOD COUNT 8.3 x10^3/uL (4.8-10.8)
[2020-04-17 13:42] LABS: CALCIUM 8.8 mg/dL (8.5-10.3); CREATININE 0.6 mg/dL (0.4-1.0)
== END 2020-04-17 23:59 | disposition home or self-care (01) ==
LOC: LAB.R 12:37
PROVIDERS: ATTEND Nurse Practitioner Adult Health
DX: N17.9 Acute kidney failure, unspecified (principal)
CPT/HCPCS: 80048; 85025

== ENCOUNTER 2020-04-26 09:30 | Outpatient (CLI) | payer MEDICARE, OTHER ==
--- NOTE | 2020-04-26 17:12 | CONSULTATION NOTE ---
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 She has been challenged with multiple issues for recovery, including DTI of her coccyx, significant bruising as she is both on both aspirin and Plavix, and persistent pain at the site of her coccyx. And making a joint visit today, as patient has significant pain in coccyx area, worsens with any kind of movement or pressure, particularly with turning and positioning, calling out loudly in distress, but settles down quickly. Reports no pain at rest. Reports her pain in her back is since resolved, on examination wound has small opening of less than 0.5 cm, is draining serous yellow drainage, no erythema. Bruising and discoloration appears to be fading, though unclear if underlying injury. They have been very constant about turning and repositioning, both nurse and family feel has been improving over time. Unclear this severity or etiology of her pain, patient is not running fever or chills, no erythema, has concern could certainly be osteomyelitis. She has improved since her last visit on 4. She is able to move her left arm, though sometimes needs cueing and is difficult with transfers per son. She still has some left-sided neglect difficulty turning her head or focusing with some gaze drift. She does now converse, conversation is with expression, she is able to answer questions, though her short-term memory is poor. She though is not oriented to time, told me was 1917, unable to give me her address, nor the month. She was quite distressed with these deficits, I did back off. But we did discuss having OT come work with memory. She is not had any further trouble swallowing or choking, but has not resumed to walking, and is mostly bedbound. She also appears to have lost some weight, and with some persistent depression. Patient's history includes known stroke 03/2019, with expressive aphasia, eventually resolved. She also had acute respiratory failure with hypoxia, and a N STEMI, as well as a stable burst fracture of her thoracic vertebrae. She has known auto immune hemolytic anemia, had been receiving Rituxan. She does easily experience skin tears, as her skin is quite fragile. Medications/Allergies - Medications Home Medications: Ambulatory Orders Medication Instructions Recorded Confirmed Calcium Carbonate/Vitamin D3 1 cap PO DAILY 06/01/17 04/26/20 [Calcium 600-Vit D3 500 Softgel] Metoprolol Tartrate 25 mg PO BID 06/01/17 04/26/20 Quinapril HCl 20 mg PO DAILY 06/01/17 04/26/20 Atorvastatin Calcium 40 mg PO DAILY 11/01/18 04/26/20 Aspirin Chewable [[place] 81 mg PO DAILY 02/15/19 04/26/20 Aspirin] predniSONE [Prednisone] 5 mg PO .QOD FOR 10 DAY 12/06/19 04/26/20 Calcitonin,[employer],Synthetic 1 spr KAYLA DAILY 01/29/20 04/26/20 [Calcitonin-[employer]] Ferrous Sulfate 325 mg PO .2XWEEK 01/29/20 04/26/20 Hydrocodone/Acetaminophen 0.5 - 1 tab PO TID MDD 1 am .5 pm 01/29/20 04/26/20 [Hydrocodone-Acetamin 5-325 mg] .5 bedtime Multivitamin [Theragran] 1 each PO DAILY 01/29/20 04/26/20 Clopidogrel [Plavix] 75 mg PO DAILY #30 tablet 02/01/20 04/26/20 - Allergies Allergies/Adverse Reactions: Allergies Allergy/AdvReac Type Severity Reaction Status Date / Time No Known Drug Allergies Allergy Verified 01/28/20 15:50 Review of Systems - Constitutional Constitutional: reports: Fatigue, Weight loss (appears more thin; unable to weigh; LMAC done 23 cm). denies: Fever, Chills - Eyes Eyes: reports: Vision loss, Other (difficult looking to left) - Ears, Nose & Throat Ears, Nose & Throat: reports: Dental decay, Dry mouth - Cardiovascular Cardiovascular: reports: Decr. exercise tolerance - Respiratory Respiratory: denies: SOB at rest - Gastrointestinal Gastrointestinal: reports: Early satiety (eats good breakfast; small amount lunch; little for dinner; one boost daily). denies: Constipation - Genitourinary Genitourinary: reports: Incontinence (intermittent) - Musculoskeletal Musculoskeletal: reports: Back pain (improved), Stiffness, Limited range of motion, Muscle weakness, Transfer issues (difficult transfers; not ambulating yet) - Integumentary Integumentary: reports: Dryness - Neurological Neurological: reports: General weakness, Memory problems (patient disorientated to time;) - Psychiatric Psychiatric: reports: Depression, Anxiety - Hematologic/Lymphatic Hematologic/Lymphatic: reports: Anemia (currently controlled), Bruising. denies: Recurrent infections - All Other Systems All Other Systems: reports: Reviewed and negative Physical Exam - Vital Signs Temperature: 98.0 C Pulse Rate: 66 Respiratory Rate: 16 O2 Saturation: 95 (ra @ rest) Blood Pressure: 102/68 - Physical Exam General Appearance: positive: Alert, Mild distress (with turning and wound care) Eyes Bilateral: positive: No scleral icterus ENT: positive: Dental decay (poor dentition). negative: Mouth lesions (thrush resolved) Neck: positive: Trachea midline Cardiovascular: positive: Regular rate & rhythm Respiratory: positive: No respiratory distress, Breath sounds nml, Diminished in bases. negative: Wheezes, Rales, Rhonchi Abdomen: positive: Non-tender, Soft, Nml bowel sounds Skin: positive: Pallor, Bruising (especiallly upper arms), Wound (LLE skin tear, filling in no s/s infection -joint visit with RN), Pressure wound (coccyx; dark periwound; very painful with movement on or off tailbone;) Extremities: positive: Pedal edema (trace pedal edema) Neurologic/Psychiatric: positive: Disoriented to time, Weakness, Depressed mood/affect, Flat affect Palliative Care - POLST Patient has POLST: Yes POLST Status: DNR, Selective Treatment Pain: Pain improved, Location (back pain better; now coccyx/pain at decub/DTI site; worsens with turning; calls out) Tiredness/Fatigue: Moderate (4-6) Drowsiness/Sedation: Moderate (4-6) Nausea: None Anorexia: Moderate (4-6), Weight loss Dyspnea: None Depression: Moderate (4-6) Anxiety: Moderate (4-6) Feelings of wellbeing/Perceived Quality of Life: Fair, Worsening Sleep: Sleeps well Constipation: Yes, Opoid induced, Intermittent constipation Performance Status: Patient continues to be challenged with her deficits, as well as her care needs. Is important to stay off of her bottom, but she does need to be up in the c hair more. She is total assist for cueing, can bear weight, but needs assistance with transfers. Sometimes she is helpful and sometimes not, continues with some left upper extremity difficulty as far as directing her to hold with transfers. She is still reticent to walk, finds it quite a hassle to get up in the chair. Home health has been providing the bathing, they are needing to manage incontinent care. - Palliative Care Discussion: Patient does express feelings of sadness, feeling quite weary of her current situation. Does hope to improve, but concerned that her current level of dependence. In speaking with Rocio, he reports there is quite a bit of tension between him and his sister, he reports he is quite "grumpy" as he is up several times a night to turn and reposition her. Shelbi who is there to provide support, has limitations as far as what she is able or allowed to do, would like to engage more in interested in lungs that might help her mother's cognition. Rocio does feel somewhat put upon, but would not want to have her placed in a facility during COVID-19, does recognize he is fatigued. Results - Lab Results Lab results reviewed: Yes Impression and Recommendations - Palliative Care Impression: This is an 84-year-old woman who continues with some residual persistent symptoms of left-sided neglect, and left hemiplegia as a result of a stroke in February. She presents with her most pressing problem as a DTI on her coccyx, does cause significant amount of pain and discomfort, as well as limits her mobility. Palliative care providing support regarding pain and symptom management, and anticipatory guidance. Patient is currently homebound and unable to make any appointments. Recommendations/Counseling Done: 1. 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 Patient has had some recovery physically, she still has continued Cognitive deficits, though much improved. Concern remains if patient will be able to return to functional ambulation, she is quite dependent for bed mobility, and all her ADLs. We will continue to follow for patient's "new normal". Patient does have residual cognitive deficits, will enlist OT to come in and work with patient and family in next few weeks. 3. Stage III decub coccyx wound. Patient has been spending more time in bed and off of her coccyx. She does have severe pain with any kind of movement, or repositioning causing her to call out. She is currently on hydrocodone 1 tab a.m., half tab afternoon, and half time bedtime. Patient does not have pain at rest, balancing side effects of medication of sedation and patient's pain relief. They do have a pressure relief mattress, did at this point in time recommend patient also be up in the recliner more. They are being vigilant about repositioning and turning, according to family and home health RN it is improving, remain concerned given patient's fragile skin status, for further complications, will continue to monitor through HH. 4. Oral candidiasis. This is since resolved. 5. Auto immune hemolytic anemia. Follow-up with oncology, regarding prednisone dosing, will decrease to 5 mg every other day for 10 days then discontinue. Tonia roperyony's labs looked well. 6. Thoracic fracture. Patient denies any pain in her thoracic area, this appears to have healed and is not causing more distress. 7. Weight loss. I suspect this is multifactorial, unable to weigh patient, will follow L MAC. Instructed to add second boost, patient does appear more thin and cachectic. 8. Skin tear left lower extremity. Does appear to be healing, no signs or symptoms of infection, home health RN providing wound care support twice a week. 9. Advanced care planning. Patient continues to have decline both in quality of life and functional status. Patient does have POLST with DNA R/DNI with focus on selective treatments. If she had reversible condition, she would agree hospitalization, if she were towards end-of-life she would like to be at home with hospice. Patient does report being weary, and is disappointed with her continued loss of independence and decreasing quality of life. Time Spent: 60 minutes with greater than 50% of this done in counseling regarding pain and symptom management, management of patient's sequela from stroke, coordination of care with home health team, and oncology.
== END 2020-04-26 09:31 | disposition home or self-care (01) ==
LOC: PC 09:30
PROVIDERS: ATTEND Nurse Practitioner Adult Health
DX: Z51.5 Encounter for palliative care (principal); R41.4 Neurologic neglect syndrome; I69.354 Hemiplegia and hemiparesis following cerebral infarction affecting left non-dominant side; L89.156 Pressure-induced deep tissue damage of sacral region; D59.1 Other autoimmune hemolytic anemias; R53.83 Other fatigue; R63.0 Anorexia; R63.4 Abnormal weight loss; B37.0 Candidal stomatitis; K59.03 Drug induced constipation; T40.2X5D Adverse effect of other opioids, subsequent encounter; S22.001D Stable burst fracture of unspecified thoracic vertebra, subsequent encounter for fracture with routine healing; S81.812D Laceration without foreign body, left lower leg, subsequent encounter; Z79.899 Other long term (current) drug therapy; Z79.02 Long term (current) use of antithrombotics/antiplatelets; Z79.82 Long term (current) use of aspirin; Z79.891 Long term (current) use of opiate analgesic; Z66 Do not resuscitate
CPT/HCPCS: 99350

== ENCOUNTER 2020-05-18 17:49 | Outpatient (CLI) | payer MEDICARE, OTHER | END 2020-05-18 17:50 | disposition critical access hospital (66) | LOC: EMS 17:49 | PROVIDERS: ATTEND Surgery | DX: R06.02 Shortness of breath (principal) | CPT/HCPCS: A0425; A0427 ==

== ENCOUNTER 2020-05-18 18:16 | Emergency (ER) | payer MEDICARE, OTHER ==
--- NOTE | 2020-05-18 18:22 | ED Physician Documentation ---
PD HPI DYSPNEA - Stated complaint Stated Complaint: SOA - History obtained from History obtained from: Patient, EMS - History of Present Illness Timing - onset: Today - Additional information Additional information: 84-year-old woman with history of recent stroke had about a half an hour episode of shortness of breath at home today. Now feeling better. No associated cough or chest pain. No pedal edema. Review of Systems Constitutional: denies: Fever, Chills Cardiac: denies: Chest pain / pressure, Palpitations, Pedal edema, Calf pain Respiratory: denies: Cough, Hemoptysis, Wheezing GI: denies: Abdominal Pain PD PAST MEDICAL HISTORY - Present Medications Home Medications: Ambulatory Orders Medication Instructions Recorded Confirmed Calcium Carbonate/Vitamin D3 1 cap PO DAILY 06/01/17 04/26/20 [Calcium 600-Vit D3 500 Softgel] Metoprolol Tartrate 25 mg PO BID 06/01/17 04/26/20 Quinapril HCl 20 mg PO DAILY 06/01/17 04/26/20 Atorvastatin Calcium 40 mg PO DAILY 11/01/18 04/26/20 Aspirin Chewable [St Anup 81 mg PO DAILY 02/15/19 04/26/20 Aspirin] predniSONE [Prednisone] 5 mg PO .QOD FOR 10 DAY 12/06/19 04/26/20 Calcitonin,[place],Synthetic 1 spr KAYLA DAILY 01/29/20 04/26/20 [Calcitonin-[place]] Ferrous Sulfate 325 mg PO .2XWEEK 01/29/20 04/26/20 Hydrocodone/Acetaminophen 0.5 - 1 tab PO TID MDD 1 am .5 pm 01/29/20 04/26/20 [Hydrocodone-Acetamin 5-325 mg] .5 bedtime Multivitamin [Theragran] 1 each PO DAILY 01/29/20 04/26/20 Clopidogrel [Plavix] 75 mg PO DAILY #30 tablet 02/01/20 04/26/20 Furosemide [Lasix] 20 mg PO DAILY #5 tablet 05/18/20 Potassium Chloride 10 meq PO DAILY #5 tablet.er 05/18/20 - Allergies Allergies/Adverse Reactions: Allergies Allergy/AdvReac Type Severity Reaction Status Date / Time No Known Drug Allergies Allergy Verified 05/18/20 18:33 PD ED PE NORMAL - Vitals Vital signs reviewed: Yes - General General: No acute distress, Well developed/nourished - HEENT HEENT: PERRL, EOMI - Neck Neck: Supple, no meningeal sign, No bony TTP - Cardiac Cardiac: RRR, No murmur - Respiratory Respiratory: No respiratory distress, Clear bilaterally - Extremities Extremities: No edema, No calf tenderness / cord Results - Vitals Vitals: Vital Signs - 24 hr 05/18/20 05/18/20 05/18/20 18:18 20:32 21:49 Temperature 36.5 C 36.6 C Heart Rate 83 80 90 Respiratory 18 22 16 Rate Blood Pressure 176/139 H 183/111 H 194/118 H O2 Saturation 94 96 98 Oxygen O2 Source [] Nasal cannula O2 Source Room air - EKG (time done) 1835 Rate: Rate (enter#) (83) Rhythm: NSR (w pac) Intervals: Normal IN QRS: Normal Ischemia: Non specific changes Compare to prior EKG: Other (Compared with an EKG on January 27 of this year, there is potentially very mild increase in inferior and lateral T wave inversion, but not profound.) - Labs Labs: Laboratory Tests 05/18/20 05/18/20 05/18/20 18:47 18:47 18:47 WBC 6.1 RBC 4.84 Hgb 15.7 Hct 47.3 H MCV 97.7 MCH 32.4 H MCHC 33.2 RDW 13.9 Plt Count 163 MPV 9.7 Neut # (Auto) 4.2 Lymph # (Auto) 1.1 L [place] # (Auto) 0.7 Eos # (Auto) 0.1 Baso # (Auto) 0.0 Absolute Nucleated RBC 0.00 Nucleated RBC % 0.0 Sodium 139 Potassium 3.6 Chloride 103 Carbon Dioxide 25 Anion Gap 11.0 BUN 16 Creatinine 0.5 Estimated GFR (MDRD) 118 Glucose 102 H Calcium 9.2 Total Bilirubin 1.2 H AST 33 ALT 28 Alkaline Phosphatase 99 Troponin I High Sens 40.2 H* B-Natriuretic Peptide Total Protein 6.8 Albumin 3.9 Globulin 2.9 Albumin/Globulin Ratio 1.3 Lipase 38 05/18/20 05/18/20 18:47 20:51 WBC RBC Hgb Hct MCV MCH MCHC RDW Plt Count MPV Neut # (Auto) Lymph # (Auto) [place] # (Auto) Eos # (Auto) Baso # (Auto) Absolute Nucleated RBC Nucleated RBC % Sodium Potassium Chloride Carbon Dioxide Anion Gap BUN Creatinine Estimated GFR (MDRD) Glucose Calcium Total Bilirubin AST ALT Alkaline Phosphatase Troponin I High Sens 37.2 H* B-Natriuretic Peptide 804 H Total Protein Albumin Globulin Albumin/Globulin Ratio Lipase PD MEDICAL DECISION MAKING - ED course ED course: 84yo F with brief resolved SOA. Exam normal except HTN. CXR/Labs C/W mild CHF. Given lasix/ACEI here. No hypoexmia. Departure - Departure Disposition: Home, Self Care Clinical Impression: CHF (congestive heart failure) Qualifiers: Heart failure type: other Qualified Code(s): I50.9 - Heart failure, unspecified Condition: Good Record reviewed to determine appropriate education?: Yes Instructions: Heart Failure Dc, ED Diet Low Salt 2Gm Prescriptions: Furosemide [Lasix] 20 mg PO DAILY #5 tablet Potassium Chloride 10 meq PO DAILY #5 tablet.er Comments: You were seen today for shortness of breath that resolved prior to arrival. Your oxygen levels were good, blood pressure on the high side. Work-up demonstrates mild congestive heart failure. We are putting her on a diuretic for a few days, follow-up with your doctor Thursday for further evaluation and treatment. Return if worse. Make sure to eat a low-salt diet.
--- NOTE | 2020-05-18 18:52 | XRAY Report ---
PROCEDURE: Chest 1 View X-Ray INDICATIONS: dyspnea TECHNIQUE: One view of the chest was acquired. COMPARISON: 02/15/2019 FINDINGS: Surgical changes and devices: None. Lungs and pleura: No pleural effusions or pneumothorax. Mild pulmonary vascular congestion is seen. No definite focal infiltrate. Mediastinum: Mediastinal contours appear normal. Heart size is enlarged. Bones and chest wall: No suspicious bony lesions. Overlying soft tissues appear unremarkable. IMPRESSION: Cardiomegaly and mild congestion. No definite focal infiltrate. No pleural effusion or pneumothorax. Reviewed by: Tony Saldana MD on 05/18/2020 6:51 PM PDT Approved by: Tony Saldana MD on 05/18/2020 6:51 PM PDT Station ID: [id number]
[2020-05-18 18:57] LABS: BASOPHILS % (AUTO) 0.5 %; EOSINOPHILS # (AUTO) 0.1 10^3/uL (0.0-0.7); EOSINOPHILS % (AUTO) 0.8 %; HGB - HEMOGLOBIN 15.7 g/dL (12.0-16.0); LYMPHOCYTES # (AUTO) 1.1 10^3/uL (1.5-3.5); LYMPHOCYTES % (AUTO) 18.5 %; MEAN CORPUSCULAR HEMOGLOBIN 32.4 pg (27.0-31.0); MEAN CORPUSCULAR HGB CONC 33.2 g/dL (32.0-36.0); MEAN CORPUSCULAR VOLUME 97.7 fL (81.0-99.0); MEAN PLATELET VOLUME 9.7 fL (7.9-10.8); MONOCYTES # (AUTO) 0.7 10^3/uL (0.0-1.0); MONOCYTES % (AUTO) 10.8 %; NEUTROPHILS # (AUTO) 4.2 10^3/uL (1.5-6.6); NEUTROPHILS % (AUTO) 68.4 %; PLT - PLATELET COUNT 163 10^3/uL (130-450); RED BLOOD COUNT 4.84 10^6/uL (4.20-5.40); RED CELL DISTRIBUTION WIDTH 13.9 % (12.0-15.0); WHITE BLOOD COUNT 6.1 x10^3/uL (4.8-10.8)
[2020-05-18 19:11] LABS: ALBUMIN 3.9 g/dL (3.2-5.5); ALBUMIN/GLOBULIN RATIO 1.3 (1.0-2.2); BILIRUBIN,TOTAL 1.2 mg/dL (0.2-1.0); CALCIUM 9.2 mg/dL (8.5-10.3); CREATININE 0.5 mg/dL (0.4-1.0); TOTAL PROTEIN 6.8 g/dL (6.7-8.2)
[2020-05-18] MEDS ORDERED: FUROSEMIDE 20 MG TABLET PO STA (19:28)
[2020-05-18] MEDS ORDERED: lisinopriL 5 MG TABLET PO STA (21:47)
[2020-05-18 21:50] VITALS: BP 194/118
== END 2020-05-18 22:55 | disposition home or self-care (01) ==
LOC: EDUNIT# → ED 18:16
DX: I11.0 Hypertensive heart disease with heart failure (principal); I50.9 Heart failure, unspecified
CPT/HCPCS: 36415; 71045; 80053; 83690; 83880; 84484; 85025; 93005; 99283; 99284; A9270

== ENCOUNTER 2020-05-18 23:04 | Outpatient (CLI) | payer MEDICARE, OTHER | END 2020-05-18 23:05 | disposition home or self-care (01) | LOC: EMS 23:04 | PROVIDERS: ATTEND Surgery | DX: R06.02 Shortness of breath (principal); I69.359 Hemiplegia and hemiparesis following cerebral infarction affecting unspecified side | CPT/HCPCS: A0425; A0428 ==

== ENCOUNTER 2020-06-21 09:53 | Outpatient (CLI) | payer MEDICARE, OTHER ==
[2020-06-21 15:18] LABS: BASOPHILS # (AUTO) 0.1 10^3/uL (0.0-0.1); BASOPHILS % (AUTO) 0.8 %; EOSINOPHILS # (AUTO) 0.1 10^3/uL (0.0-0.7); EOSINOPHILS % (AUTO) 1.1 %; HGB - HEMOGLOBIN 16.4 g/dL (12.0-16.0); LYMPHOCYTES # (AUTO) 0.9 10^3/uL (1.5-3.5); LYMPHOCYTES % (AUTO) 15.2 %; MEAN CORPUSCULAR HEMOGLOBIN 31.3 pg (27.0-31.0); MEAN CORPUSCULAR HGB CONC 31.9 g/dL (32.0-36.0); MEAN CORPUSCULAR VOLUME 98.1 fL (81.0-99.0); MEAN PLATELET VOLUME 10.4 fL (7.9-10.8); MONOCYTES # (AUTO) 0.8 10^3/uL (0.0-1.0); MONOCYTES % (AUTO) 12.2 %; NEUTROPHILS # (AUTO) 4.3 10^3/uL (1.5-6.6); NEUTROPHILS % (AUTO) 69.9 %; PLT - PLATELET COUNT 174 10^3/uL (130-450); RED BLOOD COUNT 5.24 10^6/uL (4.20-5.40); RED CELL DISTRIBUTION WIDTH 14.4 % (12.0-15.0); WHITE BLOOD COUNT 6.1 x10^3/uL (4.8-10.8)
[2020-06-21 15:40] LABS: ALBUMIN 3.8 g/dL (3.2-5.5); ALBUMIN/GLOBULIN RATIO 1.2 (1.0-2.2); BILIRUBIN,TOTAL 1.1 mg/dL (0.2-1.0); CALCIUM 9.1 mg/dL (8.5-10.3); CREATININE 0.6 mg/dL (0.4-1.0); TOTAL PROTEIN 6.9 g/dL (6.7-8.2)
== END 2020-06-21 09:54 | disposition home or self-care (01) ==
LOC: LAB.S 09:53
PROVIDERS: ATTEND Family Medicine
DX: E87.1 Hypo-osmolality and hyponatremia (principal); I50.9 Heart failure, unspecified; I11.9 Hypertensive heart disease without heart failure
CPT/HCPCS: 36415; 80053; 83880; 85025

== ENCOUNTER 2020-07-09 15:15 | Outpatient (CLI) | payer MEDICARE, OTHER ==
--- NOTE | 2020-07-09 18:25 | CONSULTATION NOTE ---
Palliative Care Follow Up - Referral Referring Provider: Yuliet HUTTON Time of Visit: [id number] Referral setting: Home Referral Reason: FTT/Hx of stroke/weight loss - Information Sources Records reviewed: Previous records reviewed History/Review of Systems obtained from: Patient, Family (daughter Shelbi at visit) Exam limitations: Clinical condition (patient improved; but still STM issues) - History of Present Illness Update Brief HPI Update: This is an 84-year-old woman who has continued to presented with failure to thrive. 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 She has improved both functionally and cognitively, but remains quite frail. She is mostly bedbound, is up may be 3 or 4 times a week in the recliner, is able to bear weight and pivot to comm ode, but ambulates only 10 to 15 feet with max assist. She has improved cognitively, she is able to track better but still has some residual left-sided neglect, short-term memory deficits, and very little insight into her current situation. She had developed a severe stage III decub, this has since healed, though on examination areas quite darkened and purple, no open areas, but at high risk for reinjury and reopening. Family has been quite diligent and keeping her turned, and repositioned. Patient is continued to be quite thin, losing weight, last weight 2 weeks ago was 98 pounds, and January she was 141. She reports early satiety, poor appetite, but does eat 3 times a day and family is encouraging her. They do have Meals on Wheels, and use supplemental drinks. Patient continues with persistent back pain, she has severe kyphosis, and history of a thoracic burst fracture. She has underlying RA, and degenerative disease processes. She is most uncomfortable in her lower back, some persistent discomfort in her coccyx, and intermittent sharp shooting pains in her legs. Patient also in April had an ED visit for increased shortness of breath, and diagnosis of CHF. This was treated with a short burst of furosemide and potassium. She is only needed to repeat this 1 other time, last in June 02 for 5 days. She does present today with some increased lower extremity edema, left greater than right. They are now no longer able to weigh her, she is too fearful and unable to stand without assistance.Her lungs are clear, she does not present with increased shortness of breath, will have them just do 3 days versus the 5 and evaluate response. She has had some elevation in her blood pressure, compared to her norm in 140's/105 highest, though my reading is 132/82 today. Patient also has a history of recurrent hemolytic anemia, she has been off her prednisone since 05/14, her last hemoglobin was 16.4. She is no longer receiving Rituxan as she is mostly homebound. It is a taxing considerable effort to get her out. Patient's goals were palliative in nature, will continue to provide support until further decline and transition to hospice. Patient's past medical history includes NSTEMI, autoimmune hemolytic anemia, hypertension, hyperlipidemia, PR, pneumonia, CVA, TIA, GERD, incontinence, chronic vision loss, depression, anxiety, chronic back pain Social History - Living Situation Living arrangement: At home Living Situation: With family Support System: Patient lives in her own home, she is cared for by her son and daughter. They do now have some respite through [facility]. Unclear if this is [facility] or [facility] supported, but has made it so Shelbi has assistance with bathing patient twice a week.A caregiver currently providing support, is a good fit, and has started late May. Daughter reports there is still some tensions between her and her brother, but they are doing better now that he is working on a more regular basis. Most of these have to do with approaches how best to care for patient.At this point in time Shelbi will continue to remain in the home, and will share caregiving duties with brother Monalisa Medications/Allergies - Medications Home Medications: Ambulatory Orders Medication Instructions Recorded Confirmed Calcium Carbonate/Vitamin D3 1 cap PO DAILY 06/01/17 07/10/20 [Calcium 600-Vit D3 500 Softgel] Metoprolol Tartrate 25 mg PO BID 06/01/17 07/10/20 Quinapril HCl 20 mg PO DAILY 06/01/17 07/10/20 Atorvastatin Calcium 40 mg PO DAILY 11/01/18 07/10/20 Aspirin Chewable [[place] 81 mg PO DAILY 02/15/19 07/10/20 Aspirin] Ferrous Sulfate 325 mg PO .2XWEEK 04/05/20 09/15/20 Hydrocodone/Acetaminophen 0.5 - 1 tab PO TID MDD 0.5 tab tid 01/29/20 07/10/20 [Hydrocodone-Acetamin 5-325 mg] with 1 prn bedtime Multivitamin [Theragran] 1 each PO DAILY 01/29/20 07/10/20 Clopidogrel [Plavix] 75 mg PO DAILY #30 tablet 02/01/20 07/10/20 Acetaminophen [Tylenol Extra 500 mg PO TID 07/10/20 07/10/20 Strength] Furosemide [Lasix] 20 mg PO DAILY PRN 07/10/20 07/10/20 Potassium Chloride 10 meq PO DAILY PRN 07/10/20 07/10/20 polyethylene glycoL 3350 [Miralax] 17 gm PO DAILY PRN 07/10/20 07/10/20 Mirtazapine 7.5 mg PO QPM 07/11/20 07/11/20 - Allergies Allergies/Adverse Reactions: Allergies Allergy/AdvReac Type Severity Reaction Status Date / Time No Known Drug Allergies Allergy Verified 05/18/20 18:33 Review of Systems - Constitutional Constitutional: reports: Fatigue, Poor appetite, Weight loss (last weight 98; LMAC 20 cm right arm; last LMAC 23 on 04/26). denies: Fever, Chills - Eyes Eyes: reports: Vision loss - Ears, Nose & Throat Ears, Nose & Throat: reports: Hearing loss, Dental decay - Cardiovascular Cardiovascular: reports: Edema (new this week), Decr. exercise tolerance. denies: Chest pain - Respiratory Respiratory: denies: Orthopnea, SOB at rest - Gastrointestinal Gastrointestinal: reports: Constipation (bm q 2-3 days; firm) - Genitourinary Genitourinary: reports: Incontinence - Musculoskeletal Musculoskeletal: reports: Back pain, Stiffness, Limited range of motion, Muscle weakness, Assistive devices, Transfer issues (amb about 10 ft) - Integumentary Integumentary: reports: Dryness, Other (healed skin tears;decub) - Neurological Neurological: reports: General weakness, Memory problems, Abnormal gait - Psychiatric Psychiatric: reports: Depression. denies: Anxiety - Endocrine Endocrine: reports: Diabetes type 2, Intolerance to cold - Hematologic/Lymphatic Hematologic/Lymphatic: denies: Recurrent infections - All Other Systems All Other Systems: reports: Reviewed and negative Physical Exam - Vital Signs Temperature: 96.7 C Pulse Rate: 72 Respiratory Rate: 18 O2 Saturation: 93 (ra @ rest) Blood Pressure: 132/82 - Physical Exam General Appearance: positive: No acute distress, Alert Eyes Bilateral: positive: No scleral icterus ENT: positive: No signs of dehydration, Other (poor dentition) Neck: positive: Trachea midline Cardiovascular: positive: Regular rate & rhythm Respiratory: positive: No respiratory distress, Breath sounds nml Abdomen: positive: Non-tender, Soft, Nml bowel sounds Skin: positive: Pallor, Bruising, Wound (right skin tear healed on lower arm; LLE dried scab but healed/skin tear), Pressure wound (closed; remains dark purple and fragil) Extremities: positive: Pedal edema (left greater than right; up to mid calf) Neurologic/Psychiatric: positive: Oriented x3, Mood/affect nml, Weakness, Flat affect Palliative Care - POLST Patient has POLST: Yes POLST Status: DNR, Selective Treatment Pain: Pain improved, Location (lower back; coccyx controlled with TID 1/2 tab vicodin supplemented with 500 mg apap; occasional at night) Tiredness/Fatigue: Moderate (4-6) Drowsiness/Sedation: Mild (1-3) Nausea: None Anorexia: Moderate (4-6), Weight loss Dyspnea: None Depression: Mild (1-3) Anxiety: None Feelings of wellbeing/Perceived Quality of Life: Fair, Acceptable, Improved, Comment (patient in good spirits; enjoys time with daughter) Sleep: Sleeps well (up nightly for commode/incontinence change) Constipation: Yes, Opoid induced, Intermittent constipation Performance Status: Patient in bed on arrival, is able to help with bed mobility. Is able to move all extremities. Shelbi the daughter is providing bathing, with assistance of new caregiver twice a week. They do have her ambulate to the recliner a few times a week. Her rarely doing bed exercises, but do report she can ambulate several feet, and a shuffling way with gait belt. Daughter does not push patient, though patient does express would want to be stronger though often declines to get up. Transferring to car or out of home is significantly difficult for both patient and family. - Palliative Care Discussion: Patient perceives her current quality of life as good, she really enjoyed the [employer] game. She has settled in with her daughter providing most of the caregiving, and overseeing her medications. She reports she would like to get up and walk more, though often declines to participate in any kind of activity. Her daughter's goals for her just to ease her last days, focus on things that make her happy, and not force the issue. They do see her decline, but feel like things are working well, particularly with support from new caregiver. Did follow-up with Alek JUAREZ, reports he was up there last weekend, feels like things are going pretty well. He does feel like his mom has recovered some functionally and cognitively, though does see her is quite frail. Does und erstand it would not take much for her to deteriorate. Goals continue to be to focus on comfort, not to extend suffering, does feel current caregiving situation is working out. We did discuss in the context of adding some mirtazapine, as patient has had significant weight loss.He was not aware of which program the caregiver is coming out of from [facility], will have to confirm who social work case manager is. Results - Lab Results Lab results reviewed: Yes Impression and Recommendations - Palliative Care Impression: This is an 84-year-old woman who has recovered some from her stroke in February, her DTI/decub on coccyx is fragile but healed. She continues with underlying chronic back pain, currently controlled. Her caregiving situation has stabilized, patient expresses gratitude and satisfaction. Palliative care to provide ongoing support and oversight, will visit more frequently given home health has discharge. Patient is quite fragile, continues with weight loss, failure to thrive, and will most likely transition to hospice in the near future. Recommendations/Counseling Done: 1. CHF. Patient with PRN furosemide and potassium, secondary to episode of CHF in April, has only needed it one time in May, does present with some increased lower extremity edema today, this is a new finding per daughter. Given patient's fragile state, recommended only 3 days versus 5. Suspect lower extremity edema is more related to malnutrition and bedbound status, as lungs are clear. We will continue to monitor. 2. Residual from stroke. Patient still continues with weakness, functional decline, cognitive deficits but improvement overall. Patient is not interested in further rehab, or transition to outpatient. We did set a short-term goal, for her to get up daily at least in recliner for 1 meal. Patient reminds at high risk for recurrent stroke. 3. Chronic back pain. Patient's pain currently controlled on half tab hydrocodone 5 mg / 325 mg 3 times daily with half tab during night if needed. This is supplemented by 500 mg acetaminophen 3 times daily. Patient reports this has been a good regimen, sometimes has increased pain at end of day, but this fluctuates. Is complaining of some new sharp shooting pain in her legs, but brief and not persistent. We will continue current regimen as effective. 4. Protein calorie malnutrition. Patient reports no appetite, early satiety, but does eat small amounts frequently through the day. They are receiving Meals on Wheels, daughter is working with different ways to increase her calories, but continues with noted weight loss both by LMAC 23-20 since April, and 98 rob nds versus 141 in January. Discussed with both Shelbi and son Alek, about adding mirtazapine, will go ahead and start at a half tab 7.5 mg for 1 week, then full tab. We discussed this also has a benefit of addressing depression, and sleep issues. 5. Advanced care planning. Focus on goals of and quality of life, maintaining patient in her own home, family does recognize her frailty and caregiver s tressors continue but improved. Time Spent: 45 minutes with greater than 50% of this done in counseling regarding symptom management, weight loss, current coping, and anticipatory guidance
== END 2020-07-09 15:16 | disposition home or self-care (01) ==
LOC: PC 15:15
PROVIDERS: ATTEND Nurse Practitioner Adult Health
DX: Z51.5 Encounter for palliative care (principal); I50.9 Heart failure, unspecified; I69.319 Unspecified symptoms and signs involving cognitive functions following cerebral infarction; I69.354 Hemiplegia and hemiparesis following cerebral infarction affecting left non-dominant side; I69.312 Visuospatial deficit and spatial neglect following cerebral infarction; M54.9 Dorsalgia, unspecified; G89.29 Other chronic pain; E46 Unspecified protein-calorie malnutrition; Z66 Do not resuscitate
CPT/HCPCS: 99349

== ENCOUNTER 2020-08-06 14:15 | Outpatient (CLI) | payer MEDICARE, OTHER ==
--- NOTE | 2020-08-06 16:24 | CONSULTATION NOTE ---
Palliative Care Follow Up - Referral Referring Provider: Yuliet HUTTON Time of Visit: 3929-2812 Referral setting: Home Referral Reason: DTI spine/Hx of stroke/Muscle weakness/Chronic back pain - Information Sources Records reviewed: Previous records reviewed History/Review of Systems obtained from: Patient, Family (son Rocio and sergey Mario present; called and spoke with Alek ROMERO from home) Exam limitations: Clinical condition (remains drifty; but engaged in conversation; STM deficits) - History of Present Illness Update Brief HPI Update: This is an 84-year-old woman who has presented is failure to thrive, did initiate mirtazapine 7.5 mg at bedtime, they initiated with a half tab, have not progressed. Reports she had some somnolence first few days, but is better now. She does appear quite brighter, she is sleeping through the night, and is doing better with eating. She was followed by home health recently discharge, patient has had recurrent stroke with left-sided hemiplegia, left-sided neglect and visual field cut, which is improved both functionally and cognitively but she remains quite frail. At her last appointment, I did encourage her to be up daily, as she is losing muscle weakness, she had initiated for about 3 or 4 days, and then has been bedbound since. Family does offer to get her up, but patient often declines and chooses to be in bed. She can previous to this only ambulate 10 to 15 feet with max assist. She continues with short-term memory deficits, and very little insight into her current situation. 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 She does present today though with 2 new deep tissue injuries on her thoracic spine, she is quite thin, and has severe scoliosis. They are about 1 cm in diameter, I did cover that with Mepilex for protection. Family confirm patient is doing better with her intake, she is pushing fluids, they are using boost. This is actually reflected in her LMAC, went from 20-21, both left and right. She does appear to fill thin somewhat from her last visit. Her son who comes monthly, had commented this weekend that she look like she had gained some weight as well. Patient continues with persistent back pain, has severe kyphosis and scoliosis and a history of thoracic burst fracture. She reports she can tell the pain medications are working, she takes 1/2 tablet 500 mg of APAP 3 times daily, occasionally nighttime dosing. She also has underlying RA, and degenerative disease processes of the spine. Patient has a new diagnosis CHF, she has been treated with intermittent burst of furosemide and potassium, she very much dislikes increasing incontinence and time up to the bathroom. Daughter is monitoring for this, and does appear to be using appropriately. Patient also at high risk for lower extremity edema related to poor nutritional intake and concern for low albumin. Past Medical History: Recurrent autoimmune hemolytic anemia, has been off prednisone since 05/14, her last hemoglobin was 16.4. She is no longer receiving Rituxan and she is mostly homebound. N STEMI, hypertension, hyperlipidemia, CO, pneumonia, CVA, TIA, GERD, incontinence, chronic vision loss, depression, anxiety, and chronic back pain. Social History - Living Situation Living arrangement: At home Living Situation: With family Support System: She is care for by her son Raulito ORTEGA and daughter Shelbi. They do have some respite now through [facility], 2 times a week for bathing. Patient's eldest son Alek who is DPOAE, does come monthly, to monitor situation, to help pay bills, and provide some respite. Patient's needs are currently being met, patient is quite grateful and denies any stress at this time. Medications/Allergies - Medications Home Medications: Ambulatory Orders Medication Instructions Recorded Confirmed Calcium Carbonate/Vitamin D3 1 cap PO DAILY 06/01/17 08/06/20 [Calcium 600-Vit D3 500 Softgel] Metoprolol Tartrate 25 mg PO BID 06/01/17 08/06/20 Quinapril HCl 20 mg PO DAILY 06/01/17 08/06/20 Atorvastatin Calcium 40 mg PO DAILY 11/01/18 08/06/20 Aspirin Chewable [[place] 81 mg PO DAILY 02/15/19 08/06/20 Aspirin] Ferrous Sulfate 325 mg PO .2XWEEK 01/29/20 08/06/20 Hydrocodone/Acetaminophen 0.5 - 1 tab PO TID MDD 0.5 tab tid 01/29/20 08/06/20 [Hydrocodone-Acetamin 5-325 mg] with 1 prn bedtime Multivitamin [Theragran] 1 each PO DAILY 01/29/20 08/06/20 Clopidogrel [Plavix] 75 mg PO DAILY #30 tablet 02/01/20 08/06/20 Acetaminophen [Tylenol Extra 500 mg PO TID 07/10/20 08/06/20 Strength] Furosemide [Lasix] 20 mg PO DAILY PRN MDD 3 days 07/10/20 08/06/20 Potassium Chloride 10 meq PO DAILY PRN MDD 3 days 07/10/20 08/06/20 polyethylene glycoL 3350 [Miralax] 17 gm PO DAILY PRN 07/10/20 08/06/20 Mirtazapine 3.25 mg PO QPM 07/11/20 08/06/20 - Allergies Allergies/Adverse Reactions: Allergies Allergy/AdvReac Type Severity Reaction Status Date / Time No Known Drug Allergies Allergy Verified 05/18/20 18:33 Review of Systems - Constitutional Constitutional: reports: Fatigue (remains persistent; improved last couple of days), Weakness (has been only transfering to [facility]), Weight stable (LMAC improved 21 left and right up from 20 cm) - Eyes Eyes: reports: Vision loss, Corrective lenses - Ears, Nose & Throat Ears, Nose & Throat: reports: Hearing loss, Dental decay - Cardiovascular Cardiovascular: reports: Irregular heart rate, Edema (has used PRN furosemide/K about 2-3 x;), Decr. exercise tolerance. denies: Lightheadedness - Respiratory Respiratory: denies: Cough, Wheezing, SOB at rest - Gastrointestinal Gastrointestinal: reports: Abdominal pain (c/o LLQ pain but when palpated appeared to be left pelvic hip), Constipation (intermittent), Poor appetite (improved since last visit; eats two meals day), Early satiety. 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), Anxiety (anxious about Geoffrey Wilsons twins) - Endocrine Endocrine: reports: Intolerance to cold - Hematologic/Lymphatic Hematologic/Lymphatic: denies: Anemia, Recurrent infections - All Other Systems All Other Systems: reports: Other (limited with STM) Physical Exam - Vital Signs Temperature: 97.0 C Pulse Rate: 60 Respiratory Rate: 16 O2 Saturation: 95 (ra @ rest) Blood Pressure: 118/74 - Physical Exam General Appearance: positive: No acute distress, Alert Eyes Bilateral: positive: No scleral icterus ENT: positive: No signs of dehydration, Other (poor dentition) Neck: positive: Trachea midline Cardiovascular: positive: Irregularly irregular Respiratory: positive: No respiratory distress, Breath sounds nml Abdomen: positive: Non-tender, Soft, Nml bowel sounds Skin: positive: Pallor, Dryness (improved), Bruising (improved), Wound (LLE dried scab but healed/skin tear), Pressure wound (closed; remains dark purple and fragil on coccyx with some moisture/open area to gluteal fold; new two 1 cm areas of Dark purple). negative: Rash Extremities: positive: Full ROM (able to move legs and arms on command), Pedal edema (trace left tapan; right less) Neurologic/Psychiatric: positive: Oriented x3, Mood/affect nml, Weakness Palliative Care - POLST Patient has POLST: Yes POLST Status: DNR, Selective Treatment Pain: Pain improved, Location (back chronic; left hip area "kidney area" pelvic area not thoracic), Severity (controlled on currentl regimen per patient and daughter's perception), Comment (APAP 500 mg with 1/2 hydrocodone/apap TID with intermittent night time dose; patient perceives working) Tiredness/Fatigue: Moderate (4-6) Drowsiness/Sedation: Mild (1-3) (had for a few days with initiation of mirtazipine; now resolved) Nausea: None Anorexia: Mild (1-3) Dyspnea: None Depression: Mild (1-3) Anxiety: Mild (1-3) Feelings of wellbeing/Perceived Quality of Life: Good, Acceptable, Worsening Sleep: Sleep improved (sleeping better with new medication) Constipation: Yes, Opoid induced, Intermittent constipation Performance Status: Patient has continued to decline functionally, has not been out of bed except for transitions to the commode for the last 3 weeks. Did review with both son and daughter, and patient who does express her goals are to be able to be up and functional. Reviewed that unless she made an effort, she will continue to be bedbound. This is fine as if this is in the context of her goals, but otherwise she needs to engage in at least daily ambulation, and encouraged her bed exercises. - Palliative Care Discussion: Patient continues to perceive her current quality of life is good, she continues enjoyed the [employer] game. She has settled in with her daughter providing most of the caregiving and overseeing her medications. She again professes she wants to get up and walk more, though declines often to participate in input of activity. Patient has very little insight into her behaviors, and her ongoing decline. Goals remain to focus on easing her last days, they do see she has improved some with the use of mirtazapine with sleep, appetite, and possibly depression. Goals remain to focus on comfort, continue to weigh benefits and burdens of moving forward and transitioning to hospice if patient were to have another event her continued decline. Patient does have a POLST with do not attempt resuscitation and selective treatments. Impression and Recommendations - Palliative Care Impression: An 84-year-old woman who is had some recovery from her stroke in February, she now has recurrent UTI injury on her spine, her decub on her coccyx is fragile as well. She continues have underlying chronic back pain, currently controlled with her current regimen. She does appear to have improved with initiation of the mirtazapine even a small dose of 3.5 mg, as far as symptoms of sleep and depression. Palliative care to continue provide ongoing support and oversight, patient is quite fragile, remains at high risk for further weight loss, failure to thrive, and most likely to transition to hospice in the future Recommendations/Counseling Done: 1.DTI of thoracic spine. Applied Mepilex to areas of fragility, counseling provided regarding positioning further on side. Spoke with Moy Gaston, instructed to order alternating pressure mattress from [facility], number given. Patient continues to be fairly bedbound, and this will be continued to be a challenge to keep her skin intact. 2. CHF. Patient with PRN furosemide and potassium, secondary to episode of CHF in April resulting in ED visit. Has had some intermittent increase in lower extremity edema, have used twice since her last visit in [place]. Patient though does appear to have more swelling related to more likely nutritional status. Lungs are clear, encouraged to wait before initiating at this point akanksha e. 3. Muscle weakness. Patient engaged for about 3 or 4 days, for getting up for meals. Patient still professes her goal is to walk and be more functional though when given the option to get up, she often declines. Discussed her family is not going to "bully her", but if patient does not want to be totally bedbound, she will need to engage somewhat immediately, she is going to continue to decline functionally given her bedbound status. Patient verbalizes understanding, did encourage family to remind her she expressed her goals to not be bedbound. 4. Chronic back pain. Patient's pain is currently controlled on half tab hydrocodone 5/325 mg 3 times a day with half tab during the night if needed supplemented by 500 mg acetaminophen 3 times a day. Patient continues to be pleased with current regimen, no further adjustments needed. 5. Protein calorie nutrition. Patient has had better appetite, is eating 2 meals a day, they are receiving Meals on Wheels, continue to look at different ways to increase her calories. They did initiate mirtazapine 7.5 mg half tab, would encourage full tab, in the next couple weeks. They are hesitant to add anything that may add to her sedation or sleepiness, though she is doing better with sleeping through the night. We did discuss in the context that she acclimates to it, may be able to tolerate a full tab. 6. Advanced care planning. Goals remain to focus on quality of life, maintaining patient in her own home, family recognizes her frailty, there are multiple caregiver stressors but things have improved. Patient does have POLST with DNA R/selective treatment. Goal would be a time patient either has an event, or with continued decline the transition to hospice in her own home setting. Time Spent: 60 minutes with getting 50% of this done in counseling regarding skin issues, pain and symptom management, titration of medications, after much discussion at this point family would like to hold off on any kind of flu shot. They will get flu shots on their own. Patient is homebound at this point most likely not able to get out. Will revisit with next visit.
== END 2020-08-06 14:16 | disposition home or self-care (01) ==
LOC: PC 14:15
PROVIDERS: ATTEND Nurse Practitioner Adult Health
DX: Z51.5 Encounter for palliative care (principal); L89.106 Pressure-induced deep tissue damage of unspecified part of back; L89.156 Pressure-induced deep tissue damage of sacral region; I50.9 Heart failure, unspecified; I11.0 Hypertensive heart disease with heart failure; M62.81 Muscle weakness (generalized); M54.9 Dorsalgia, unspecified; G89.29 Other chronic pain; E46 Unspecified protein-calorie malnutrition; R62.7 Adult failure to thrive; I69.354 Hemiplegia and hemiparesis following cerebral infarction affecting left non-dominant side; I69.312 Visuospatial deficit and spatial neglect following cerebral infarction; F32.9 Major depressive disorder, single episode, unspecified; Z79.899 Other long term (current) drug therapy; Z66 Do not resuscitate
CPT/HCPCS: 99350

== ENCOUNTER 2020-08-27 14:45 | Outpatient (CLI) | payer MEDICARE, OTHER ==
--- NOTE | 2020-08-27 16:57 | CONSULTATION NOTE ---
Palliative Care Follow Up - Referral Referring Provider: Josephine HUTTON Time of Visit: [id number] Referral setting: Home Referral Reason: Failure to Thrive/Hemolytic anemia/protien calorie malnutrition - Information Sources Records reviewed: Previous records reviewed History/Review of Systems obtained from: Family (daughter Shelbi) Exam limitations: Clinical condition (patient very drifty; able to engage but confused at baseline) - History of Present Illness Update Brief HPI Update: This is an 84-year-old woman who has continued to deteriorate, she presents as a failure to thrive, with protein calorie malnutrition, severe cachexia, 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 In follow-up with family and HEATHER Gaston, the goal is for no further work-up and focus on comfort measures. He feels this would be consistent with his mother's wishes, she is quite fragile, does not present with decision-making capacity, is easily aroused, denies any fever, but is very painful with any kind of movement or repositioning. She had perked up a bit, with low-dose mirtazapine on my visit on 08/06/2020 but had been deteriorating previously to this, and suspect that this is continued. She has been mostly bedbound, she does have residual of a stroke from February, with left-sided hemiplegia and left-sided neglect as well as visual field cut. She has never really regained any significant functional status, has been ambulatory for a few feet, but has chosen related to her pain, depression, and anxiety to be mostly bedbound up to this point. Patient at baseline has persistent back pain, severe kyphosis and scoliosis as well as history of thoracic burst fracture. She has been on scheduled hydrocodone 1/2-1 tab 3 times daily with 1 tab during evening if needed, today though she presents with uncontrolled pain with any kind of movement. She is unable to assist with any bed mobility, and does appear in distress. Did attempt to place Espinal catheter, patient with significant scarring and difficult to find the urethra. Patient though has had little intake, provided teaching how to work with her dependence she has, and recommended just diaper changes at this point. The other complicating factor is Rocio, the patient's other son that lives there, left on 08/14 has been quite complicated with mood swings. At some point called the sister as he had been missing in action, to report he had been quite sick, and he and his girlfriend had tested Covid positive, this would have been a few days after 08/14, daughter and patient have not had fevers nor any signs of Covid infection. It is suspected he picked it up when he was with his girlfriend. She just learned the girlfriend had , and he was in a "bad place" and heading home. Brother Alek intervened, and asked him not to return home until tested again negative, and currently is in agreement and will not return at this time. Shelbi daughter, is feeling overwhelmed, crying through most of visit, wanting to do the right thing for her mom. She has been the main caregiver for several months now, with some support (but tension) from Rocio. Past Medical History: Hemolytic anemia, CVA, hyperlipidemia, hypertension, CHF, history of limb for compression fractures, and STEMI, SD, pneumonia, incontinence, chronic vision loss, depression, anxiety, and chronic back pain Social History - Living Situation Living arrangement: At home Living Situation: With family Support System: Patient's did on hospice a few years ago, patient wanted this for herself as well. Unfortunately with her stroke, she has needed significant amount of care, she has been served by home health care, originally [facility] ORTEGA the son of been primary caregiver, Shelbi who has her own complicated history, came to help. She has been caring for her mostly through this time., With some respite from her brother Alek who has come on some weekends, as well as intermittent shift support with Raulito ORTEGA. She has been by herself though since 08/14. They do have [facility] caregiver who comes twice a week, is due to come tomorrow. Alek is planning to be up here on Thursday, as he is a principal, he has to follow strict [place] guidelines, which would be Thursday for quarantine of sister/mother. Medications/Allergies - Medications Home Medications: Ambulatory Orders Medication Instructions Recorded Confirmed Metoprolol Tartrate 25 mg PO BID MDD hold 06/01/17 08/27/20 Hydrocodone/Acetaminophen 0.5 - 1 tab PO Q4HR 01/29/20 08/27/20 [Hydrocodone-Acetamin 5-325 mg] polyethylene glycoL 3350 [Miralax] 17 gm PO DAILY PRN 07/10/20 08/27/20 LORazepam [Ativan] 0.5 mg PO Q4HR PRN 08/27/20 08/27/20 Morphine Sulfate [Morphine Sulf 10 mg PO Q4HR PRN 08/27/20 08/27/20 Oral (Roxanol)] - Allergies Allergies/Adverse Reactions: Allergies Allergy/AdvReac Type Severity Reaction Status Date / Time No Known Drug Allergies Allergy Verified 05/18/20 18:33 Review of Systems - Constitutional Constitutional: reports: Fatigue (worsening), Weakness (mostly bedbound; was a full body lift one time over weekend; inst to keep in bed), Weight loss (pateint cachetic 08/06 lmac was 21 cm;) - Eyes Eyes: reports: Vision loss, Corrective lenses - Ears, Nose & Throat Ears, Nose & Throat: reports: Hearing loss, Dental decay, Dry mouth (crusted dry mouth and lips) - Cardiovascular Cardiovascular: denies: Chest pain, Edema - Respiratory Respiratory: denies: Cough, SOB at rest - Gastrointestinal Gastrointestinal: reports: Poor appetite (minimal intake for several days; sips fluid/bites of ice cream). denies: Constipation (small bm this am; smearing when cleaned), Nausea - Genitourinary Genitourinary: reports: Incontinence (using depends) - Musculoskeletal Musculoskeletal: reports: Back pain, Muscle aches, Stiffness, Limited range of motion, Muscle weakness, Transfer issues (total life to transfer) - Integumentary Integumentary: reports: Dryness, Nail changes (long and ragged) - Neurological Neurological: reports: General weakness, Memory problems (patient with AMS for several days) - Psychiatric Psychiatric: reports: Depression, Anxiety (with any movement) - Endocrine Endocrine: reports: Intolerance to cold - All Other Systems All Other Systems: reports: Other (limited with STM) Physical Exam - Vital Signs Temperature: 97.7 C Pulse Rate: 96 Respiratory Rate: 16 O2 Saturation: 95 (ra @ rest) Blood Pressure: 150/82 - Physical Exam General Appearance: positive: Moderate distress (appears with significant pain), Anxious, Lethargic, Cachetic Eyes Bilateral: positive: No scleral icterus, Other (eyes matted) ENT: positive: Dry mucous membranes, Other (poor dentition) Neck: positive: Trachea midline Cardiovascular: positive: Irregularly irregular Respiratory: positive: No respiratory distress, Breath sounds nml, Diminished in bases. negative: Wheezes, Rales, Rhonchi Abdomen: positive: Non-tender, Soft, Nml bowel sounds Skin: positive: Pallor, Dryness (improved), Bruising (improved), Wound (LLE dried scab but healed/skin tear), Pressure wound (closed; remains dark purple and fragil on coccyx with some moisture/open area to gluteal fold; Thoracic decub on back/severe scoliosis and marnie prominences; open dressing replaced). negative: Rash Extremities: positive: Other (very weak; difficulty with bed mobililty) Neurologic/Psychiatric: positive: Disoriented to time, Weakness, Slurred/abnml speech, Depressed mood/affect, Flat affect, Other (drifting in and out) Comments/Other: Attempted to place Espinal catheter, unable to find urethra, catheter and vagina. Patient is only voiding small amounts, teaching provided how to manage incontinence. Will notify area director of home health sales, may be able to with support place catheter. Palliative Care - POLST Patient has POLST: Yes POLST Status: DNR, Comfort Measures (updated POLST left in home for son Alek to sign; goals for comfort care/ transition to hospice) Pain: Pain worsening, Location (back and hips; yelitza out with any movement) Tiredness/Fatigue: Severe (7-10) Drowsiness/Sedation: Severe (7-10) Nausea: None Anorexia: Severe (7-10), Weight loss Dyspnea: None Depression: Moderate (4-6) Anxiety: Moderate (4-6) Feelings of wellbeing/Perceived Quality of Life: Poor, Worsening Sleep: Other (sleeping most of the time) Constipation: Yes, Opoid induced, Intermittent constipation Performance Status: Patient has had slow functional decline since her stroke, has been mostly bedbound. Was transferring to the commode prior, but though she voiced wanted to Participate in improving her functional status, preferred to be in her bed both for pain and for worsening activity intolerance. This is mostly be attributed to weakness, depression, and weight loss. She had more acute changes over the last several days, with diminished intake of only sips and bites, no ability to assist with transfers, daughter lasted a total lift to the commode yesterday, patient unable to bear weight. - Palliative Care Discussion: Patient with altered mental status, is able to engage some, denies feeling fearful. Did discuss with her was going to transition her to hospice team, provide increased support for her daughter Shelbi and also be able to better care for her. Unclear if she understands the severity of her current situation, she has so expressed in the past, no extension of suffering, and does not want to in the hospital. Spoke with Alek at length, he is the DPOA, does not want patient sent to the hospital for further work-up, does plan to just focus on comfort and transition to comfort care. He is in agreement for hospice care, he is going to come up on Thursday. We discussed we do have a nurse available on Thursday would recommend given the situation for Shelbi that we get that started OSC[facility]. Patient is doing quite poorly, most likely will transition fairly quickly, it does not have any reserve. Did speak with Shelbi at length, she is quite appropriately tearful, just wants to do the right thing by her mother, reassured she has been giving good care, continues to provide support and reassurance. Written instructions given for managing pain, also reviewed if patient passes to call 911 until the unexpected to meet them at the door with a POLST and green form. New POLST was filled out with comfort measures, for Alek to sign on his arrival, these are his expressed wishes though and verbal consent provided Impression and Recommendations - Palliative Care Impression: This is an 84-year-old woman who is continued to decline, over the last several weeks and more acutely over the last few days. She does present with severe protein calorie malnutrition, dehydration, uncontrolled pain, and worsening decub on her thoracic spine. Goals of care are to focus on comfort, will transition to hospice team. Recommendations/Counseling Done: 1. Stage III decub of her thoracic spine. Change dressings, is on alternating pressure mattress currently, repositioned on side, is quite thin and cachectic. May benefit from thicker and larger Mepilex dressing, will defer to hospice. 2. Acute on chronic back pain. Patient is having significantly increased pain and discomfort, with any kind of movement, she does cry out and is in distress. We will go ahead and initiate [id number] hydrocodone, they are able to crush and put in by the yogurt, instructed to give every 4 hours, will transition to morphine 5 to 10 mg around the clock when arrives. 3. Dysphagia. Patient having increased trouble with medications and swallowing, is able to take small bites, was able to take a small bite of yogurt. Recommended mouth care, tooth outs provided, bites and sips for comfort only, particular related to further aspiration risk. Patient has been refusing medications, we will go ahead and discontinue medications other than comfort meds, will leave the metoprolol can evaluate if need to restart. Patient is somewhat tacky and 96, will need to continue to monitor. 4. Protein calorie malnutrition. Patient has been having anorexia, decreased intake, increased difficulty with eating. She has been sleeping more, and more acutely over the last few days decreased fluids and food. Patient is imminently transitioning, is quite cachectic, signs of dehydration with dry lips and mouth. Instructed to provide just bites and sips for comfort only. 5. Advanced care planning. Goals remain to continue to focus on comfort measures, discussion at length with son HEATHER Gaston, and Shelbi daughter. Want to keep her comfortable, do want to keep her at home, did [facility] for further work-up. We will go ahead and transition to hospice team for support. Time Spent: 75 minutes with greater than 50% of this done in counseling regarding goals of care, transition to hospice, care for imminently transitioning patient, coordination of care with family and hospice team
== END 2020-08-27 14:46 | disposition home or self-care (01) ==
LOC: PC 14:45
PROVIDERS: ATTEND Nurse Practitioner Adult Health
DX: Z51.5 Encounter for palliative care (principal); G89.29 Other chronic pain; R62.7 Adult failure to thrive; E46 Unspecified protein-calorie malnutrition; R64 Cachexia; R13.10 Dysphagia, unspecified; L89.103 Pressure ulcer of unspecified part of back, stage 3; I69.354 Hemiplegia and hemiparesis following cerebral infarction affecting left non-dominant side; R41.4 Neurologic neglect syndrome; R41.82 Altered mental status, unspecified; R32 Unspecified urinary incontinence; Z79.899 Other long term (current) drug therapy; Z79.891 Long term (current) use of opiate analgesic; Z66 Do not resuscitate
CPT/HCPCS: 99350